=== PATIENT | female | born 1975 | race Caucasian/White ===

== ENCOUNTER 2017-09-17 11:17 | Emergency (ER) | payer BC ==
[2017-09-17] MEDS ORDERED: Ketorolac INJ* 60 MG/2 ML VIAL IM ONE (12:55)
--- NOTE | 2017-09-17 12:55 | ED ---
Upper Extremity Pain - HPI Summary HPI Summary: Rt hand dominant pt here w/ chronic Rt side neck/shoulder pain x 3 weeks consistently. Has had issues here intermittently over the years but worse past 3 weeks. Associated sx are pain radiating into arm (feels like tightness) and numbness/weakness sensation. Just woke up with these sx one morning 3 weeks ago and no relief despite chiropractic appointment, aleve, tylenol, heat, ice and topical rub. Has some relief when she moves her head laterally to the left sometimes. 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 No previous sx like this and denies h/o trauma. Having difficulty sleeping and working with sx. - History of Current Complaint Chief Complaint: UCUpperExtremity Stated Complaint: NECK PAIN ARM NUMB Time Seen by Provider: 09/17/17 12:30 Hx Obtained From: Patient Hx Last Menstrual Period: 08/31/17 - Allergies/Home Medications Allergies/Adverse Reactions: Allergies Allergy/AdvReac Type Severity Reaction Status Date / Time Erythromycin Allergy Severe Vomiting Verified 09/17/17 12:08 Hydromorphone [From Dilaudid] Allergy Unknown See Comment Verified 09/17/17 12: 08 PMH/Surg Hx/FS Hx/Imm Hx Previously Healthy: Yes Endocrine/Hematology History: Reports: Autoimmune Disease - psoriasis - better w / prednisone, but rebound worse after Denies: Hx Anticoagulant Therapy, Hx Blood Disorders, Hx Diabetes, Hx Thyroid Disease Cardiovascular History: Denies: Hx Hypertension Respiratory History: Denies: Hx Asthma, Hx Chronic Obstructive Pulmonary Disease (COPD) GI History: Denies: Hx Ulcer - Surgical History Surgery Procedure, Year, and Place: CHOLECYSTECTOMY 2011, SINUS SURGERY Infectious Disease History: No Infectious Disease History: Denies: Hx Clostridium Difficile, Hx Hepatitis, Hx Human Immunodeficiency Virus (HIV), Hx of Known/Suspected MRSA, Hx Shingles, Hx Tuberculosis, Hx Known/ Suspected VRE, Hx Known/Suspected VRSA, History Other Infectious Disease, Traveled Outside the [place] in Last 30 Days - Family History Known Family History: Positive: None - Social History Occupation: Employed Full-time - nutrition professor Lives: With Family Alcohol Use: None Hx Substance Use: No Substance Use Type: Reports: None Hx Tobacco Use: No Smoking Status (MU): Never Smoked Tobacco Have You Smoked in the Last Year: No Review of Systems Constitutional: Negative Negative: Fever, Chills, Fatigue Eyes: Negative Negative: Photophobia, Blurred Vision, Diplopia ENT: Negative Negative: Sore Throat, Ear Ache, Nasal Discharge Cardiovascular: Negative Negative: Palpitations, Chest Pain Respiratory: Negative Negative: Shortness Of Breath, Cough Gastrointestinal: Negative Negative: Abdominal Pain, Vomiting, Diarrhea, Nausea Positive: no symptoms reported Positive: Arthralgia, Myalgia, Decreased ROM Skin: Negative Neurological: Negative Positive: Weakness, Paresthesia Psychological: Normal All Other Systems Reviewed And Are Negative: Yes Physical Exam Triage Information Reviewed: Yes Vital Signs On Initial Exam: Initial Vitals Temp Pulse Resp BP Pulse Ox 98.2 F 57 16 169/87 100 09/17/17 12:03 09/17/17 12:03 09/17/17 12:03 09/17/17 12:03 09/17/17 12:03 Vital Signs Reviewed: Yes Appearance: Positive: Well-Appearing, No Pain Distress - at rest, sitting in chair, Obese Skin: Positive: Warm, Dry - no erythema, no ecchymosis, no lesions over affected area Head/Face: Positive: Normal Head/Face Inspection Eyes: Positive: Normal, EOMI ENT: Positive: Hearing grossly normal, Pharynx normal - mucosa moist Neck: Positive: Supple, Tenderness @ - Rt paracervical mm and C5,6 spinous pp Respiratory/Lung Sounds: Positive: Clear to Auscultation, Breath Sounds Present. Negative: Rales, Rhonchi, Stridor, Tracheal Deviation, Wheezes Cardiovascular: Positive: Normal, RRR, Pulses are Symmetrical in both Upper and Lower Extremities - no UE edema, S1, S2 Bowel Sounds: Positive: Present Musculoskeletal: Positive: Strength/ROM Intact - strength equal B/L in UE's, Pain @ - Rt trapezius and Rt supraspinatous TTP - no other rotator cuff mm are TTP; pain in all ranges of motion including flexion/abduction/internal and external rotation; equivocal empty can; no weakness or numbness appreciated upon exam Neurological: Positive: Normal, Sensory/Motor Intact, Alert, Oriented to Person Place, Time, CN Intact II-III Psychiatric: Positive: Normal - concerned but calm and cooperative Diagnostics - Vital Signs Vital Signs Temp Pulse Resp BP Pulse Ox 09/17/17 12:03 98.2 F 57 16 169/87 100 - Laboratory Lab Statement: Any lab studies that have been ordered have been reviewed, and results considered in the medical decision making process. Course/Dx - Course Course Of Treatment: Pt presents w/ 3 weeks of Rt cervical pain/shoulder pain w / radiculopathy sx of numbness and weakness into Rt arm. Exam is unremarkable today for emergent neuro deficit. XR's ordered to assess anatomy - report reveals: DDD at lower cervical spine (correlates w/ sx) and moderate OA of Rt shoulder. Pain could be arthritis flair up and/or tendonitis from overuse. Out of work for a few days and f/u w/ PCP if more time if needed. She was offered prednisone for inflammation however reports this makes her psoriasi worse upon completing so will refrain today. Referred to PT and strongly encouraged to f/u w/ PCP in the event she does not improve - may need MRI. Pt agrees w/ plan. If sx worsen or she starts dropping items, etc will go to ED. - Diagnoses Provider Diagnoses: Right cervical radiculopathy, Right shoulder pain Discharge - Discharge Plan Condition: Stable Disposition: HOME Prescriptions: Cyclobenzaprine TAB* [Flexeril 10 MG TAB*] 10 mg PO TID PRN #15 tab PRN Reason: Pain Ibuprofen TAB* [Motrin TAB* 600 MG] 600 mg PO Q6H PRN #20 tab PRN Reason: Pain Patient Education Materials: Cervical Radiculopathy (ED), Shoulder Pain (ED), Osteoarthritis (ED), Degenerative Disc Disease (ED) Forms: *Work Release Referrals: Ab GONZALEZ,Annalise Haywood [Primary Care Provider] - Additional Instructions: It is advised that you rest your shoulder from work - start Physical Therapy - call today to schedule appointment. Continue anti-inflammatories - ibuprofen 600mg every 6 hours with food. May also use flexeril 10mg at bedtime for aid with sleeping. Heat then gentle stretches alternating with ice. Follow-up with PCP as well this week to schedule appointment after PT. If symptoms persist, may benefit from MRI. *If you develop true weakness (ie. dropping items, etc) go to ED
--- NOTE | 2017-09-17 13:22 | RAD ---
HISTORY: Right shoulder pain COMPARISONS: None VIEWS: 4, Frontal internal rotation, external rotation, outlet, and axillary views of the right shoulder FINDINGS: BONE DENSITY: Normal. BONES: There is no displaced fracture. JOINTS: There is moderate osteoarthritis of the right AC joint ALIGNMENT: There is no dislocation. SOFT TISSUES: Unremarkable. OTHER FINDINGS: None. IMPRESSION: OSTEOARTHRITIS. NO ACUTE OSSEOUS INJURY. IF SYMPTOMS PERSIST, RECOMMEND REPEAT IMAGING.
--- NOTE | 2017-09-17 13:22 | RAD ---
INDICATION: Right-sided neck pain. COMPARISON: None. TECHNIQUE: 4 views of the cervical spine were obtained. FINDINGS: On the lateral view image there is mild reversal of the normal cervical lordosis. The vertebral bodies and facet joints are otherwise appropriately aligned. There is no widening of the atlantodental interval. Mild degenerative changes include loss of intervertebral disc height at the lower cervical spine. IMPRESSION: Mild reversal of the normal cervical lordosis, a nonspecific finding that can be seen simply due to positioning or related to muscle spasm. If the patient's symptoms persist, follow-up imaging is recommended.
[2017-09-17 13:31] VITALS: BP 164/89
== END 2017-09-17 13:46 | disposition home or self-care (01) ==
LOC: UCEAST 11:17
DX: M54.12 Radiculopathy, cervical region (principal); M25.511 Pain in right shoulder; L40.9 Psoriasis, unspecified; Z88.3 Allergy status to other anti-infective agents; Z88.5 Allergy status to narcotic agent
CPT/HCPCS: 72040; 99212; G0463; J1885

== ENCOUNTER 2018-01-17 10:45 | Inpatient (IN) | payer BC ==
[~2018-01-17 10:45] MED LIST: Buffered Lidocaine 0.9% SYRIN* 5 ML/SYR SYRINGE INTRADERM ONE; Famotidine TAB* 20 MG PO ONE; Sodium Citrate/Citric Acid* 15 ML UDC PO ONE
[2018-01-17] MEDS ORDERED: Sodium Citrate/Citric Acid* 15 ML UDC ONE (11:20)
[2018-01-17] MEDS ORDERED: ceFAZolin 2 GM PREMIX (*) 2 GM/50 ML BAG IVPB ONE (11:20)
[2018-01-17] MEDS ORDERED: Famotidine TAB* 20 MG ONE (11:20)
[2018-01-17] MEDS ORDERED: Lidocaine 1% MPF wEPI 200,000* 30 ML SDV ONE (13:15)
[2018-01-17] MEDS ORDERED: Bacitracin IV* 50,000 UNITS INJ ONE (13:15)
[2018-01-17] MEDS ORDERED: Thrombin 5,000 UNITS* 1 APPLIC KIT - topical use - TOPICAL ONE (13:15)
[2018-01-17] MEDS ORDERED: fentaNYL* 50 MCG/ML 2 ML VIAL (100 MCG VIAL) ONE ×2 (14:35→16:05)
[2018-01-17] MEDS ORDERED: Scopolamine 1.5 mg* PATCH ONE (14:36)
[2018-01-17] MEDS ORDERED: Propofol* 10 MG/ML 20 ML BTL IV PUSH ONE (14:39)
[2018-01-17] MEDS ORDERED: Succinylcholine* 20 MG/ML 10 ML VIAL ONE (14:39)
[2018-01-17] MEDS ORDERED: Rocuronium* 10 MG/ML VIAL ONE (15:09)
[2018-01-17] MEDS ORDERED: EPHEDrine (Pressors)* 50 MG/ML VIAL ONE (15:52)
[2018-01-17] MEDS ORDERED: Dexamethasone IV* 4 MG/ML 1 ML (4 MG) ONE (15:52)
[2018-01-17] MEDS ORDERED: DiMENhydriNATE IV* 50 MG/ML VIAL IV PUSH PRN (16:03)
[2018-01-17] MEDS ORDERED: Ketorolac INJ* 30 MG/ML 1 ML VIAL IV PRN (16:03)
[2018-01-17] MEDS ORDERED: oxyCODONE TAB* 5 MG TAB PO PRN (16:03)
[2018-01-17] MEDS ORDERED: Naloxone* 0.4 MG/ML 1 ML VIAL IV PRN (16:03)
[2018-01-17] MEDS ORDERED: Magnesium Hydroxide LIQ* 30 ML UDC PO PRN (17:33)
[2018-01-17] MEDS ORDERED: Acetaminophen TAB* 325 MG PO PRN (17:33)
[2018-01-17] MEDS ORDERED: DiMENhydriNATE IV* 50 MG/ML VIAL ONE (17:47)
[2018-01-17] MEDS ORDERED: Ketorolac INJ* 30 MG/ML 1 ML VIAL ONE (18:04)
[2018-01-17] MEDS ORDERED: fentaNYL* 50 MCG/ML 5 ML VIAL (250 MCG VIAL) ONE (18:04)
[2018-01-17] MEDS: fentaNYL* 50 MCG/ML 2 ML VIAL (100 MCG VIAL) IV PRN ×5 (18:07→19:23)
--- NOTE | 2018-01-17 18:37 | RAD ---
INDICATION: Anterior cervical disc hysterectomy and fusion with instrumentation. COMPARISON: Correlation is made with a prior MRI of the cervical spine from December 25, 2017. TECHNIQUE: 18.7 seconds of intermittent fluoroscopic guidance were provided and 8 spot films of the cervical spine were obtained in the operating room. FINDINGS: The films demonstrate successive anterior spinal fusion present at the C4-C5 level. There is a surgical plate anterior to the vertebral bodies transfixed with 2 screws at each level. There is also a disc prosthesis at that level. IMPRESSION: INTRAOPERATIVE CONTROL FILMS. CPT II Codes: G9500
[2018-01-17] MEDS ORDERED: PROCHLORPERAZINE INJ 5 MG/ML 2 ML VIAL IV PRN (18:38)
[2018-01-17] MEDS: HYDROcodone/ACETAMIN 5-325 MG* 1 TAB PO PRN (21:10)
[2018-01-17] MEDS: Atenolol TAB* 50 MG PO SCH (21:10)
[2018-01-17] MEDS: Citalopram TAB* 40 MG PO SCH (21:10)
--- NOTE | 2018-01-17 21:41 | CONSULT ---
Consult Consult: INPATIENT PAIN CONSULTATION Audrey Hoang is a 42 yo. She develloped neck pain radiating into her right shoulder in June. She went to her chiropractor but the symptoms persisted. She was taking NSAIDs without relief. She went to [facility] in August and had x- rays of her right shoulder and cervical spine. She went to physical therapy and this did not help her. She tried deep tissue massage but this was not helpful. She says that when she tried to reach for something with her right hand, the hand and arm would sometimes go numb. She thought the problem was with her shoulder, so she saw Dr. Calabrese, the orthopedic surgeon. Dr. Calabrese ordered an MRI of the cervical spine. It showed a disc protusion at C4/5 to the right displacing the ventral nerve root and mass effect on the thecal sac with neural foraminal stenosis. She was referred to Dr. Liu. He recommended an C4/5 ACDF. She was admitted to [facility] today and had the surgical procedure. She was started on [place]. I am asked to assist in pain management. PAST MEDICAL HISTORY: Migraines, anxiety ALLERGIES: erythromycin, dilaudid Current Medications Acetaminophen (Tylenol Tab*) 650 mg PO Q4H PRN PRN Reason: PAIN Hydrocodone Bitart/Acetaminophen ([place] 5-325 Tab*) 2 tab PO Q4H PRN PRN Reason: marked pain Last Admin: 01/17/18 21:10 Dose: 2 tab Atenolol (Tenormin Tab*) 50 mg PO BEDTIME [facility] Last Admin: 01/17/18 21:10 Dose: 50 mg Citalopram Hydrobromide (Celexa Tab*) 40 mg PO BEDTIME [facility] Last Admin: 01/17/18 21:10 Dose: 40 mg Lactated Ringer's (Lactated Ringers 1000 Ml Bag*) 1,000 mls @ 75 mls/hr IV .per rate [facility] Last Admin: 01/17/18 21:12 Dose: 75 mls/hr Magnesium Hydroxide (Milk Of Magnesia Liq*) 30 ml PO DAILY PRN PRN Reason: CONSTIPATION Oxycodone HCl (Roxycodone Tab*) 10 mg PO ONCE PRN PRN Reason: SEVERE PAIN Stop: 01/18/18 16:02 Prochlorperazine Edisylate (Compazine Inj*) 5 mg IV Q6H PRN PRN Reason: NAUSEA/VOMITING Last Admin: 01/17/18 21:20 Dose: 5 mg SOCIAL HISTORY: non-smoker, rare drinker. She lives with her son in a 2 story house. 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 Vital Signs Temp Pulse Resp BP Pulse Ox 98.2 F 92 16 136/73 96 01/17/18 19:00 01/17/18 20:01 01/17/18 21:10 01/17/18 20:01 01/17/18 20:01 EXAM: HEENT: EOMI NECK: Immobilized in hard collar EXTREMITIES: Normal tone. Peripheral pulses intact NEUROLOGIC: alert and oriented. Handgrip 5/5 and symmetric. ASSESSMENT: 1. Cervical Radiculopathy, S/P ACDF with interbody cage PLAN: She has [place] written for and oxycodone in case the [place] doesn't work. This seems to be sufficient at present. I have taken the liberty of writing for bowel meds. She can go home with [place] if there are no problems. Please call with questions.
[2018-01-17] MEDS ORDERED: HYDROcodone/ACETAMIN 5-325 MG* 1 TAB PO PRN (22:00)
[2018-01-17] MEDS ORDERED: Senna TAB PO PRN (22:00)
[2018-01-18] MEDS: HYDROcodone/ACETAMIN 5-325 MG* 1 TAB PO PRN ×5 (04:03→22:01)
--- NOTE | 2018-01-18 08:00 | PN ---
Progress Note - Progress Note Date of Service: 01/18/18 SOAP: Subjective: [S/p ACD F C4-5, POD #1. She is feeling well but tired this morning. [place] J collar placed and is better fitting. Pre-op symptoms improving. Pain well controlled with PO pain medications Denies nausea, reports mild headache. ] Objective: [ Vital Signs: Temp Pulse Resp BP Pulse Ox 97.3 F 60 17 131/71 98 01/18/18 03:58 01/18/18 03:58 01/18/18 06:44 01/18/18 03:58 01/18/18 06:09 General: Alert and sitting up in bed. Neuro: Motor and sensory intact. Incision: Intact and dressing is clean/dry. Neck: No swelling or erythema. ] Assessment: [Satisfactory post-op course.] Plan: [1. Discharge home today. 2. Discharge instructions discussed with the patient.]
[2018-01-18] MEDS: Docusate CAP* 100 MG PO SCH ×2 (08:41→21:25)
--- NOTE | 2018-01-18 11:00 | RAD ---
HISTORY: Postop ACDF COMPARISONS: MRI dated December 25, 2017 VIEWS: 2, frontal and lateral views of the cervical spine FINDINGS: The cervical spine is visualized from the skull base through C7. ALIGNMENT: There is straightening of the normal cervical lordosis. VERTEBRAL BODIES: The patient is status post anterior cervical fusion at C4-C5. There is no hardware failure or osteolysis. JOINTS: There is no subluxation or dislocation. The facet joints are unremarkable. INTERVERTEBRAL DISCS: Intervertebral graft material is noted at C4-C5. SOFT TISSUE: The prevertebral soft tissues are normal. OTHER: The skull base is normal. The lung apices are clear. IMPRESSION: STATUS POST ANTERIOR CERVICAL FUSION AT C4-C5
[2018-01-18] MEDS ORDERED: Benzocaine/Menthol LOZ* 1 LOZENGE PO PRN (15:20)
--- NOTE | 2018-01-18 20:57 | CONS ---
[facility] MEDICINE CONSULTATION REPORT: DATE OF CONSULT: 01/18/18 ATTENDING PHYSICIAN: Dr. Liu. CONSULTING PHYSICIAN: Dr. Sarah Aguilar (dictated by Radha Alexander NP). REASON FOR CONSULT: Hypoxia. HISTORY OF PRESENT ILLNESS: Ms. Hoang is a 42-year-old female with past medical history significant for migraines, psoriasis, anxiety, depression, and neck pain, who presented to the hospital for an elective C4-C5 cervical diskectomy and fusion with PEEK interbody cage with Dr. Liu. She had her surgery on 01/17/18 and was doing well postoperatively. She did have oxygen desaturations in the PACU and was placed on oxygen postoperatively. Post recovery, she was placed on short stay surgical. She continues to have some desaturation of oxygen with sleeping and with ambulation. She denies any chest pain or shortness of breath. She denies any palpitations. She denies any cough or congestion. She denies any history of asthma. She does report she does snore when sleeping. She denies any recent illnesses or sick contacts. Due to the hypoxia, we were asked to consult in her care. PAST MEDICAL HISTORY: 1. Migraines. 2. Psoriasis. 3. Anxiety. 4. Depression. 5. Neck pain. PAST SURGICAL HISTORY: 1. Sinus surgery. 2. Gallbladder surgery. MEDICATIONS: As outpatient: 1. Citalopram 20 mg p.o. daily. 2. Atenolol 25 mg p.o. daily for migraines. 3. Ibuprofen 800 mg t.i.d. as needed for pain. ALLERGIES TO MEDICATIONS: She is allergic to ERYTHROMYCIN and HYDROMORPHONE. HYDROMORPHONE causes her to become "crazy" per the patient. FAMILY HISTORY: No history of coronary artery disease or diabetes within the family. Cancer: Sister with lung cancer and grandfather with unknown type of cancer. SOCIAL HISTORY: The patient denies tobacco, alcohol, or illicit drug use. She does report that in the event she is unable to make her own medical decisions that her mother and father are surrogate decision makers. Her mother's name is Marilyn. Her phone number is [phone], area code 315. REVIEW OF SYSTEMS: General: No fevers, chills, or unintended weight loss. Cardiac: No chest pain or edema. Respiratory: Denies any cough or congestion. Denies any shortness of breath. GI: Reports mild nausea at this time. Denies abdominal pain or diarrhea. : Denies any gross hematuria or dysuria. Neuro: Denies any focal weakness or sensory loss. Eyes: No visual complaints. ENT: No dysphagia. She does report a sore throat. Musculoskeletal: No arthralgias or myalgias. Skin: No rashes or lesions. She does report that she has a headache and some mild dizziness. PHYSICAL EXAM: Vital Signs: Temperature 98.8, pulse of 71, respirations 16, O2 saturation 93% on room air, blood pressure 139/73. LABORATORY DATA: She had a CBC on 01/10/18, WBCs were 9.1, RBCs 4.29, hemoglobin 9.1, hematocrit was 38, platelet count was 316. INR on 01/10/18 was 0.91. BMP on 01/10/18, sodium 138, potassium 4.2, chloride 102, carbon dioxide was 30, anion gap of 6, creatinine was 0.65, BUN was 15. ASTs were 16, ALTs were 20. TSH was 2.60. IMPRESSION AND PLAN: Ms. Hoang is a 42-year-old female with a past medical history significant for migraines, psoriasis, anxiety, depression, and neck pain , who presented to [facility] on 01/17/18 for elective C4-5 anterior cervical diskectomy and fusion. During the postoperative period, she has had periods of desaturation, so we were asked to consult regarding this matter. Our recommendations are as follows: 1. Status post cervical diskectomy and fusion. Management per Neurosurgery. 2. Oxygen desaturation. I suspect this is related to sleep apnea and body habitus. We will order a nocturnal oxygen desaturation monitoring to see if she qualifies for home O2. I will order a CBC and a CMP. In the event, she has desaturations below 88%, she should be placed on oxygen. If this nocturnal desaturation monitoring is positive for desaturation, I would recommend outpatient sleep study for further evaluation of sleep apnea. 3. As far as her migraines, she should continue her Tylenol 25 mg p.o. daily. 4. For her depression and anxiety, she should continue her citalopram. 5. DVT prophylaxis. As per Neurosurgery. 6. Code status. She is a full code. TIME SPENT: Time spent on this consultation was approximately 45 minutes, greater than half of that time was spent with the patient at the bedside reviewing events leading thus far to her hospitalization, performing physical exam, and reviewing my plan of care. I have discussed with my attending, Dr. Sarah Aguilar, and she is in agreement with my plan. RADHA ALEXANDER, LAB HEAD [id number]/[facility] #: [id number] JUNE
[2018-01-18] MEDS: Citalopram TAB* 40 MG PO SCH (21:25)
[2018-01-18] MEDS: Atenolol TAB* 50 MG PO SCH (21:25)
--- NOTE | 2018-01-18 22:46 | OP ---
OPERATIVE REPORT: DATE OF SURGERY: 01/17/18 - Inpatient, room SSU 342-02 DATE OF : 73 SURGEON: Meche Liu MD PROTECTION ANALYST: DAMIR Blackwell The procedure was done with assistance of surgical PA because of the complexity of the case. ANESTHESIOLOGIST: Damián Constantino MD ANESTHESIA: General. PRE-OP DIAGNOSES: Degenerative disk disease with right herniated nucleus pulposus at C4-5. POST-OP DIAGNOSES: Degenerative disk disease with right herniated nucleus pulposus at C4-5. OPERATIVE PROCEDURE: The patient underwent anterior cervical diskectomy and fusion at C4-5 with PEEK interbody cage, and DBM putty and autologous bone graft and plate. ESTIMATED BLOOD LOSS: 30 cc. COMPLICATIONS: None. SUMMARY: The patient is a very pleasant 42-year-old female with complaints of neck pain radiating to the right upper extremity. MRI revealed a large right C4 -5 disk herniation. After failing conservative treatment modalities, the patient was offered the option of anterior cervical diskectomy and fusion at C4- 5. After explaining expectations, limitations, and possible complications of the procedure with the patient and her family with complications including, but not limited to bleeding, infection, risk of damage to adjacent structures, paralysis, , need for additional procedures, anesthesia risk, stroke, blindness, cancer, instability and hardware of failure, adjacent level disease, pseudoarthrosis, recurrent laryngeal nerve palsy, need for tracheostomy or gastrostomy, anesthesia risks. The patient was agreeable to proceed with surgery. Informed consent was obtained. The patient understood that his condition may not improve and in fact may get worse after the surgery and he may need an additional procedure in the future. She also understood that operative plan may be modified according to intraoperative findings and conditions. DESCRIPTION OF PROCEDURE: The patient was brought to the operating room and was placed under general anesthesia by the anesthesia team. She was carefully positioned supine and all bony prominences were meticulously padded. The head was secured on the gel donut head rest. Her skin was prepped and draped in the standard fashion and after appropriate surgical pause and patient identification , a small paramedian incision at the level of C4-5 was marked on the skin and the area was infiltrated with local anesthetic. An appropriate level was confirmed with the assistance of intraoperative fluoroscopic imaging. A #10 surgical blade was used to incise the skin after infiltrating the skin with local anesthetic. The platysma was then divided with sharp dissection and self- retaining retractors were introduced into the field after undermining the platysma. The plane between the medial border of the sternocleidomastoid and the medial structures were gently developed with sharp and blunt dissection. The paravertebral fascia was gently divided and the anterior part of the spine was visualized. Appropriate surgical level was identified with the use of intraoperative fluoroscopic imaging and a second surgical pause was then performed. Self-retaining retractors were introduced into the field as well as the Luck pins at the C4 and C5 vertebral bodies. A standard diskectomy at C4- 5 was performed after incising the annulus fibrosus with #15 surgical blade. The diskectomy was performed with the use of pituitary rongeurs, Kerrison punches, and curettes. Locally harvested bone graft part of the operation was saved for use in the part of the procedure. Then, microscope was brought into the field and the diskectomy was completed under microscopic magnification. A large disk fragment was found to be adherent to the posterior level of the ligament into the right side of the sacral side extending towards the foramen. This was then removed with pituitary rongeur. The posterior ligament was then divided with #1 Kerrison punches and at the end of procedure, copious irrigation was performed and confirmation of meticulous hemostasis. The dura was found to pulsate nicely, free of any pressure phenomenon. An 8 mm PEEK interbody cage Medtronic was inserted after being filled with locally harvested bone graft and DBM putty. A Medtronic anterior cervical plate was then placed and secured with 4 titanium screws. The self- retaining retractors were gently removed and intraoperative fluoroscopic imaging confirmed excellent placement of whole hardware. The wound was copiously irrigated. After confirmation of meticulous hemostasis, the wound was closed by layers with 2-0 interrupted sutures to approximate the platysma and 2-0 interrupted Vicryl sutures to approximate the subcutaneous tissue. The skin was covered with Dermabond and sterile sponges. At the end of the procedure, all counts were reported to be correct. The patient remained hemodynamically stable throughout the case. He was then extubated and was transferred to Recovery in excellent condition. The case was done with assistance of the surgical PA because of the complexity of the case. [id number]/[facility] #: [id number] JUNE
[2018-01-19 05:27] LABS: Hematocrit 34 % (35-47); Hemoglobin 11.4 g/dl (12.0-16.0); Mean Corpuscular HGB Conc 34 g/dl (31-36); Mean Corpuscular Hemoglobin 30 pg (27-31); Mean Corpuscular Volume 91 fL (80-97); Mean Platelet Volume 7.7 um3 (7.4-10.4); Platelet Count 279 10^3/ul (150-450); Red Blood Count 3.76 10^6/ul (4.0-5.4); Red Cell Distribution Width 15 % (10.5-15); White Blood Count 10.4 10^3/ul (3.5-10.8)
[2018-01-19] MEDS: HYDROcodone/ACETAMIN 5-325 MG* 1 TAB PO PRN ×2 (05:29→11:52)
[2018-01-19 05:36] LABS: ABS Basophils 0.1 10^3/ul (0-0.2); ABS Eosinophils 0.2 10^3/ul (0-0.6); ABS Lymphocytes 3.4 10^3/ul (1.0-4.8); ABS Monocytes 0.7 10^3/ul (0-0.8); ABS Neutrophils 6.3 10^3/ul (1.5-7.7); ABS Nucleated RBC 0 10^3/ul; Eosinophil % 1.5 % (0-6); Lymphocyte % 31.8 % (25-47); Nucleated Red Blood Cells % 0.1
[2018-01-19 05:45] LABS: EGFR Non-African American 94.4 (>60)
[2018-01-19 07:50] VITALS: BP 128/75
[2018-01-19] MEDS: Docusate CAP* 100 MG PO SCH (10:03)
--- NOTE | 2018-01-19 10:25 | PN ---
Progress Note - Progress Note Date of Service: 01/19/18 SOAP: Subjective: [S/p ACD F C4-5, POD #1. Feeling tired, complains of incisional pain and posterior neck soreness. Eating and drinking without difficulty. [place] J collar in place. Overnight oxygen saturation study performed last night. Denies headache, nausea and fever.] Objective: [ Vital Signs: Temp Pulse Resp BP Pulse Ox 98.0 F 46 20 128/75 99 01/19/18 07:35 01/19/18 07:35 01/19/18 10:04 01/19/18 07:35 01/19/18 07:35 General: Alert and sitting up in chair. Neuro: Motor and sensory intact. Incision: Intact and dressing clean/dry. Tenderness of incisional area. No swelling, erythema or drainage. Extremities: Full ROM.] Assessment: [Post op ACD F C4-5. Satisfactory post-op course. Episodes of O2 desaturation while sleeping. Hospitalist consulted and overnight O2 saturation study performed. Per hospital medicine, she will require home oxygen while sleeping and will be discharged home with this from [facility]. ] Plan: [1. Discharge home today once O2 requirements are arranged. 2. Discharge instructions discussed with the patient again this morning. 3. Also discussed with patient she will need to be referred to Pulmonology by PCP, Dr. Garsia, for outpt evaluation.]
--- NOTE | 2018-01-19 11:33 | PN ---
Subjective Date of Service: 01/19/18 Interval History: Patient seen and examined at bedside. Denies fever, chills, shortness of breath , chest discomfort, N/V/D. Pt states that her pain is well controlled. She reports snoring at home". Family History: Unchanged from Admission Social History: Unchanged from Admission Past Medical History: Unchanged from Admission Objective Active Medications: Acetaminophen (Tylenol Tab*) 650 mg PO Q4H PRN Reason: PAIN Hydrocodone Bitart/Acetaminophen (Citronelle 5-325 Tab*) 2 tab PO Q4H PRN Reason: marked pain Hydrocodone Bitart/Acetaminophen (Citronelle 5-325 Tab*) 1 tab PO Q4H PRN Reason: PAIN - MODERATE TO SEVERE Atenolol (Tenormin Tab*) 50 mg PO BEDTIME ALONZO Citalopram Hydrobromide (Celexa Tab*) 40 mg PO BEDTIME ALONZO Docusate Sodium (Colace Cap*) 100 mg PO BID ALONZO Lactated Ringer's (Lactated Ringers 1000 Ml Bag*) 1,000 mls @ 75 mls/hr IV .per rate ALONZO Lactated Ringer's (Lactated Ringers 1000 Ml Bag*) 500 mls @ 500 mls/hr IV .BOLUS ALONZO Magnesium Hydroxide (Milk Of Magnesia Liq*) 30 ml PO DAILY PRN Reason: CONSTIPATION Prochlorperazine Edisylate (Compazine Inj*) 5 mg IV Q6H PRN Reason: NAUSEA/ VOMITING Senna (Senokot Tab*) 2 tab PO BEDTIME PRN Reason: CONSTIPATION Throat Lozenges (Chloraseptic Zoila*) 1 zoila PO Q6H PRN Reason: SORE THROAT Vital Signs - 8 hr 01/19/18 01/19/18 01/19/18 04:00 04:04 05:29 Temperature 97.8 F Pulse Rate 49 Respiratory 16 16 16 Rate Blood Pressure 121/79 (mmHg) O2 Sat by Pulse 93 94 Oximetry 01/19/18 01/19/18 01/19/18 06:00 06:46 07:35 Temperature 98.0 F Pulse Rate 46 Respiratory 16 18 Rate Blood Pressure 128/75 (mmHg) O2 Sat by Pulse 96 92 99 Oximetry 01/19/18 10:04 Temperature Pulse Rate Respiratory 20 Rate Blood Pressure (mmHg) O2 Sat by Pulse Oximetry Oxygen Devices in Use Now: None Appearance: NAD, sitting up in a chair Ears/Nose/Mouth/Throat: Mucous Membranes Moist Respiratory: Symmetrical Chest Expansion and Respiratory Effort, Clear to Auscultation Cardiovascular: NL Sounds; No Murmurs; No JVD, RRR Abdominal: NL Sounds; No Tenderness; No Distention Extremities: No Edema Skin: No Rash or Ulcers Neurological: Alert and Oriented x 3, NL Muscle Strength and Tone Lines/Tubes/Other Access: Clean, Dry and Intact Peripheral IV - site benign Nutrition: Taking PO's Result Diagrams: 01/19/18 05:14 01/19/18 05:14 Assess/Plan/Problems-Billing Assessment: Ms. Hoang is a 42 yo female with PMH significant for migraines, psoriasis, anxiety, depression and neck pain who presented to the hospital on 01/17 for a celcetive C4-[address] Fernandez. - Patient Problems (1) Status post cervical discectomy Code(s): Z98.890 - OTHER SPECIFIED POSTPROCEDURAL STATES SNOMED Code(s): 879628600 Comment: - Management per Neurosurgery (2) Hypoxia Code(s): R09.02 - HYPOXEMIA SNOMED Code(s): 623032254 Comment: - Suspect secondary to undiagnosed sleep apnea - Overnight O2 monitoring shows desaturation for ~ 37 minutes - Plan for outpatient sleep study - Will order nocturnal O2 2L for home (3) Migraines Code(s): G43.909 - MIGRAINE, UNSP, NOT INTRACTABLE, WITHOUT STATUS MIGRAINOSUS SNOMED Code(s): 32932576 Comment: - Continue Atenolol (4) Anxiety and depression Code(s): F41.9 - ANXIETY DISORDER, UNSPECIFIED; F32.9 - MAJOR DEPRESSIVE DISORDER, SINGLE EPISODE, UNSPECIFIED SNOMED Code(s): 684827780 Comment: - Continue citalopram (5) DVT prophylaxis Code(s): SHY4168 - SNOMED Code(s): 325635833 (6) Full code status Code(s): Z78.9 - OTHER SPECIFIED HEALTH STATUS SNOMED Code(s): 590046737 Status and Disposition: Inpatient. Disposition per Neurosurgery. Thank you for this consultation.
== END 2018-01-19 12:00 | disposition home or self-care (01) | DRG 23 ==
LOC: AA 11:00 → SSU 17:33
PROVIDERS: ADMIT Neurological Surgery; ATTEND Neurological Surgery
PROC: 0RB30ZZ Excision of Cervical Vertebral Disc, Open Approach (ICD-10-PCS; 2018-01-17)
PROC: 0RG10AJ Fusion of Cervical Vertebral Joint with Interbody Fusion Device, Posterior Approach, Anterior Column, Open Approach (ICD-10-PCS; principal; 2018-01-17 10:45)
DX: M50.121 Cervical disc disorder at C4-C5 level with radiculopathy (principal); Z68.42 Body mass index [BMI] 45.0-49.9, adult; M50.321 Other cervical disc degeneration at C4-C5 level; G43.909 Migraine, unspecified, not intractable, without status migrainosus; F41.9 Anxiety disorder, unspecified; R09.02 Hypoxemia; L40.9 Psoriasis, unspecified; F32.9 Major depressive disorder, single episode, unspecified; G47.30 Sleep apnea, unspecified; E66.9 Obesity, unspecified; Z88.1 Allergy status to other antibiotic agents; Z88.8 Allergy status to other drugs, medicaments and biological substances; Z80.1 Family history of malignant neoplasm of trachea, bronchus and lung; Z79.1 Long term (current) use of non-steroidal anti-inflammatories (NSAID); Z79.899 Other long term (current) drug therapy
CPT/HCPCS: 36415; 72040; 76001; 80048; 81025; 85025; 94762; A9270-GY; C1713; C1776; C9359; J0330; J0690; J0780; J1100; J1240; J1885; J2001; J2704; J3010

== ENCOUNTER 2018-01-20 18:17 | Inpatient (IN) | payer BC ==
[2018-01-20] MEDS ORDERED: diPHENhydraMINE IV* 50 MG/ML 1 ml VIAL (BENADRYL) IV ONE (20:04)
[2018-01-20] MEDS ORDERED: methylPREDNISolone 125 MG* 2 ML VIAL IV ONE (20:04)
[2018-01-20] MEDS ORDERED: Famotidine IV* 10 MG/ML 2 ML (20 mg) IV SLOW PU ONE (20:05)
[2018-01-20 20:38] LABS: ABS Basophils 0 10^3/ul (0-0.2); ABS Eosinophils 0.1 10^3/ul (0-0.6); ABS Lymphocytes 2.3 10^3/ul (1.0-4.8); ABS Monocytes 0.6 10^3/ul (0-0.8); ABS Neutrophils 7.3 10^3/ul (1.5-7.7); ABS Nucleated RBC 0 10^3/ul; Eosinophil % 1.2 % (0-6); Hematocrit 36 % (35-47); Hemoglobin 12.1 g/dl (12.0-16.0); Lymphocyte % 22.6 % (25-47); Mean Corpuscular HGB Conc 34 g/dl (31-36); Mean Corpuscular Hemoglobin 30 pg (27-31); Mean Corpuscular Volume 89 fL (80-97); Mean Platelet Volume 7.7 um3 (7.4-10.4); Nucleated Red Blood Cells % 0; Platelet Count 305 10^3/ul (150-450); Red Blood Count 3.99 10^6/ul (4.0-5.4); Red Cell Distribution Width 14 % (10.5-15); White Blood Count 10.4 10^3/ul (3.5-10.8)
[2018-01-20 20:48] LABS: EGFR Non-African American 94.4 (>60)
--- NOTE | 2018-01-20 20:51 | PN ---
Hospitalist Progress Note Date of Service: 01/20/18 Patient had an overnight sleep study on 01/19-01/20 with O2 sat < 89% for 00:37:52 , there is an issue with the software and unable to see on printout how long O2 sat was </= 88%. When looking at the graph Pt had ~ 5 minutes </= 88%. Pt should be on noctunal O2 @ 2L until she is able to have a formal sleep study to evaluate for sleep apnea. Pt has suspected obesity related hyperventilation syndrome, in addition to her nocturnal hypoxia.
[2018-01-20] MEDS ORDERED: Iohexol 300* (CONTRAST) 10 ML SDV IV ONE (21:17)
[2018-01-20 22:05] LABS: Urine Appearance Clear; Urine Blood Negative (Negative); Urine Color Straw; Urine Ketones Negative (Negative); Urine Protein Negative (Negative); Urine Specific Gravity 1.004 (1.010-1.030); Urine Urobilinogen Negative (Negative)
--- NOTE | 2018-01-20 22:32 | ED ---
Fantasma Howell Stephanie, scribed for Karen Jones MD on 01/20/18 at 1956 . Neck Pain - HPI Summary HPI Summary: The pt is a 42 y/o F presenting to the ED with c/o throat pain that began yesterday. The pt states she feels like she has a lump in her throat and as if she is going to choke all the time. The pt had anterior cervical discectomy and fusion surgery on 01/17/[address] Jin. Pt has been wearing a [place] J collar since the surgery. Pt was DC'd home yesterday, and did not have this dysphagia and choking sensation at the time of discharge. Pt did have documented desaturation of O2 into the 80's while in the hospital, but insurance did not allow nocturnal O2 for pt at time of discharge. Additional symptoms include pruritic rash on her abdomen and back that began today. The pt denies fever and cough. - History of Current Complaint Chief Complaint: EDThroatPain Stated Complaint: THROAT PAIN-THROAT SURG SUNDAY Time Seen by Provider: 01/20/18 18:33 Hx Obtained From: Patient Onset/Duration Of Injury/Symptoms: Days - 1 Mechanism Of Injury: Other - no injury, ACDF on 01/17/18 Timing: Constant Onset/Duration: Gradual Onset, Started days ago - 1, Still Present Severity Initially: Moderate Severity Currently: Severe Pain Intensity: 5 Pain Scale Used: 0-10 Numeric Location: Discrete At: - neck, throat Character: Other: - choking sensation Aggravating Factors: Other: - swallowing Alleviating Factors: Nothing Associated Signs & Symptoms: Negative: Swelling, Redness, Fever, Nuchal Rigity Related History: Other - ACDF surg 01/17/18 - Allergies/Home Medications Allergies/Adverse Reactions: Allergies Allergy/AdvReac Type Severity Reaction Status Date / Time erythromycin base Allergy Vomiting Verified 01/17/18 11:34 hydromorphone Allergy Unknown Verified 01/17/18 11:34 Reaction Details PMH/Surg Hx/FS Hx/Imm Hx Previously Healthy: No Endocrine/Hematology History: Reports: Other Endocrine/Hematological Disorders - morbid obesity Denies: Hx Anticoagulant Therapy, Hx Blood Disorders, Hx Diabetes, Hx Thyroid Disease Cardiovascular History: Denies: Hx Hypertension, Hx Pacemaker/ICD Respiratory History: Denies: Hx Asthma, Hx Chronic Obstructive Pulmonary Disease (COPD) GI History: Denies: Hx Ulcer Sensory History: Reports: Hx Contacts or Glasses - GLASSES Denies: Hx Hearing Aid Opthamlomology History: Reports: Hx Contacts or Glasses - GLASSES Neurological History: Reports: Hx Migraine - TAKES ATENOLOL FOR - STATES RARELY HAS NOW Psychiatric History: Reports: Hx Anxiety Denies: Hx Panic Disorder - Surgical History Surgery Procedure, Year, and Place: CHOLECYSTECTOMY 2011,. SINUS SURGERY. ACDF surg 01/17/18 Hx Anesthesia Reactions: Yes - HYDROMORPHONE Infectious Disease History: No Infectious Disease History: Denies: Hx Clostridium Difficile, Hx Hepatitis, Hx Human Immunodeficiency Virus (HIV), Hx of Known/Suspected MRSA, Hx Shingles, Hx Tuberculosis, Hx Known/ Suspected VRE, Hx Known/Suspected VRSA, History Other Infectious Disease, Traveled Outside the [place] in Last 30 Days - Family History Known Family History: Positive: Other - cancer Negative: Diabetes, Renal Disease - Social History Occupation: Employed Full-time Lives: With Family Alcohol Use: None Hx Substance Use: No Substance Use Type: Reports: None Hx Tobacco Use: No Smoking Status (MU): Never Smoked Tobacco Have You Smoked in the Last Year: No Review of Systems Negative: Fever Positive: Other - dysphagia, choking sensation . Negative: Sore Throat Cardiovascular: Negative Negative: Shortness Of Breath, Cough Gastrointestinal: Negative Positive: Rash Neurological: Negative Psychological: Normal All Other Systems Reviewed And Are Negative: Yes Physical Exam - Summary Physical Exam Summary: Appearance: Ill-appearing, moderate pain distress, obese Skin: Warm, macular papular excoriated rash on abd and back Head: Normal Head inspection, Fine macular papular rash at the base of her chin Eyes: Conjunctiva clear ENT: Normal inspection, voice normal Neck: Supple, no nodes, no JVD. scar on R anterior neck dry and intact with minimal redness, pt is able to swallow her own secretions in the room without difficulty Respiratory: Lungs clear, Normal breath sounds, no respiratory distress, O2 sat 95 % on room air Cardio: RRR, No murmur, pulses normal, brisk capillary refill Abdomen: soft, nontender Bowel sounds: present Musculoskeletal: Strength Intact/ ROM intact. No calf tenderness. No edema. Psychological: Normal Neuro: Alert, muscle tone normal, no focal deficit Triage Information Reviewed: Yes Vital Signs On Initial Exam: Initial Vitals Temp Pulse Resp BP Pulse Ox 98.3 F 62 18 176/95 96 01/20/18 18:30 01/20/18 18:30 01/20/18 18:30 01/20/18 18:30 01/20/18 18:30 Vital Signs Reviewed: Yes Diagnostics - Vital Signs Vital Signs Temp Pulse Resp BP Pulse Ox 01/20/18 18:30 98.3 F 62 18 176/95 96 - Laboratory Result Diagrams: 01/20/18 20:14 01/20/18 20:14 Lab Statement: Any lab studies that have been ordered have been reviewed, and results considered in the medical decision making process. Re-Evaluation - Re-Evaluation First Eval Re-Evaluation Time: 21:15 Change: Improved - rash and "choking" improved after benadryl, solumedrol and pepcid. Awaiting CT neck. Neck Course/Dx - Course Course Of Treatment: With recent surgery, ED physician will do CT of soft tissue of neck with IV with contrast to evaluate for swelling, possible abscess , or any other abnormality. With rash and sensation of choking, ED physician will also treat as possible allergic reaction with Benadryl, solumedrol and pepcid. Will check strep, flu and mono for dysphagia and rash. Placed pt on oximetry to evaluate any possible hypoxia due to documentation of drop of O2 stat within the 80s while inpatient. Juliano Bragg will fill out order form for O2 if pt able to be DC'd. - Diagnoses Differential Dx/HQI/PQRI: Positive: Other - abscess, post op swelling, allergic reaction Provider Diagnoses: Dysphagia, Dermatitis, Sleep apnea, Status post cervical discectomy Discharge - Sign-Out/Discharge Documenting (check all that apply): Sign-Out Patient Signing out patient TO: Giancarlo Shin - Pending Neck CT report. - Discharge Plan Condition: Guarded Disposition: ADMITTED TO [facility] - Billing Disposition and Condition Condition: GUARDED Disposition: [facility]P[place] [place] The documentation as recorded by the Fantasma mosqueda Stephanie accurately reflects the service I personally performed and the decisions made by Robert bell Barbara J, MD.
[2018-01-20] MEDS ORDERED: Vancomycin(*) 2,000 MG in NS 0.9% 250 ML* 250 ML IVPB ONE (23:25)
[2018-01-20] MEDS ORDERED: Piperacillin/Tazobac ADVAN(*) 3.375 GM in NS 0.9% 100 ML* 100 ML IVPB ONE (23:25)
--- NOTE | 2018-01-21 00:14 | HP ---
H&P (Free Text) History and Physical: History and Physical Date of Admission: 01/20/18 Admission Location: Short Stay Surgical Unit Admitting Physician: Dr. James CC: Sore throat with swallowing, feeling of choking while sleeping HPI: This is a 42 year old female with past medical history significant for cervical disc disease C4-5 who underwent ACD F C4-5 on 01/17/[address] Liu. Post-operatively she experienced episodes of oxygen desaturation while sleeping and remained admitted for a second night for further observation. Hospital medicine was consulted and overnight oxygen saturation study was performed indicating periods of O2 sats below 88%. She was discharged on POD #2 after home oxygen was arranged through [facility]. However, after she arrived home, she was notified that her insurance was not going to cover the home oxygen and she therefore did not receive it. She called the neurosurgery neonatal pediatric nurse this afternoon with complaint of painful swallowing, feeling like there is a lump at the back of her throat and feeling like she is choking when she is falling asleep. The swallowing symptoms are present when she is attempting to swallow fluids, food and saliva. She states that she was able to get minimal sleep last night only when she was sitting up in a chair. She has been wearing the [place] J collar which has been uncomfortable. She also complains of an abdominal rash that she noticed earlier today. She notes incisional neck soreness but denies radiating pain. Denies headache, lightheadedness, dizziness , nausea, vomiting, chest pain, difficulty breathing while awake, vision changes , abdominal pain, numbness or weakness in the upper and lower extremities. Denies fever and chills. Past Medical History: 1. Cervical disc disease C4-5, s/p ACD F C4-5 01/17/18 2. Migraine 3. Anxiety 4. Depression 5. Psoriasis Past Surgical History: 1. ACD F C4-5 01/17/18 Dr. Liu 2. Gallbladder surgery 3. Sinus surgery Home Medications: 1. Citalopram 40mg PO QD 2. Atenolol 50mg PO QD 3. Ibuprofen 800mg PO TID PRN pain Allergies: 1. Hydromorphone 2. Erythromycin Family History: Noncontributory Social History: No history of alcohol dependence, smoking or recreational drug use. ROS: Full ROS completed. Pertinent findings stated in HPI and all others negative. Physical Exam: Vital Signs: Temp Pulse Resp BP Pulse Ox 98.3 F 62 18 176/95 96 01/20/18 18:30 01/20/18 18:30 01/20/18 18:30 01/20/18 18:30 01/20/18 18:30 General: Patient seen and examined in emergency room. Alert and oriented. No distress. Sitting comfortably on stretcher HEENT: Head is normocephalic and atraumatic. PERRL, EOMI, corrective lenses in place. Gross hearing intact. Moist mucus membranes. Posterior pharynx mildly erythematous with small white patches. Neck: Supple and without adenopathy. Surgical wound intact and without erythema , swelling or warmth. Anterior neck is tender, primarily near wound. No fluctuant area or rash. No drainage from incision. CV: Radial and pedal pulses 2+ and equal. Lungs: Breathing is nonlabored. Abdomen: The abdomen is obese. Abdomen is soft and nontender, nondistended. Pin point scabbed and erythematous rash covers abdomen and back. Neuro: Speech is clear and patient able to answer questions appropriately. Strength in upper extremities is 5/5 bilaterally. Sensation intact. Negative Hoffmans. Extremities: Full ROM Imagin. CT soft tissue neck on 01/20/18 shows ACD F C4-5 with good hardware placement , and soft tissue edema. Assessment: 42 yo female s/p cervical spine surgery on 01/17/18 presents with sore throat and difficulty breathing while sleeping. CT soft tissue neck obtained showing soft tissue swelling . Plan: 1. Neurosurgery to admit patient to short stay surgical unit for observation. Patient to be placed in room close to nursing station. 2. Hospitalist consult for comanagement medical conditions 3. Decadron 4mg IV Q6 4. Oxygen 2L via nasal cannula 5. Continuous pulse oximetry 6. Swallow evaluation in the morning 7. HOB no less than 30 degrees 8. Discontinue cervical collar 9. Vital signs and neuro checks Q4H 10. Up ad ernst activity 11. NPO except for meds until swallow evaluation 12. Dressing change as needed 13. Pain management 14. Bowel medications
[2018-01-21] MEDS: HYDROcodone/ACETAMIN 5-325 MG* 1 TAB PO PRN ×4 (01:42→22:45)
[2018-01-21] MEDS ORDERED: Dexamethasone IV* 4 MG in NS 0.9% 50 ML* 50 ML IVPB SCH (02:00)
[2018-01-21] MEDS: Atenolol TAB* 50 MG PO SCH ×2 (02:30→20:45)
[2018-01-21] MEDS: Citalopram TAB* 40 MG PO SCH ×2 (02:30→20:45)
[2018-01-21] MEDS: Dexamethasone IV* 4 MG/ML 1 ML (4 MG) IV SLOW PU SCH ×4 (02:33→20:27)
--- NOTE | 2018-01-21 05:33 | ED ---
Haroon Howell Nikita, scribed for Giancarlo Shin MD on 01/20/18 at 2312 . Progress - Progress Note Progress Note: This patient was signed out from Dr. Jones, pending disposition, awaiting neck CT. Neck CT: Pending official interpretation from radiologist. See [facility]. Consulted Dr. James at 2326 about the patient. He states that he has already seen the CT and feels this is NOT abscess but rather post surgical changes. I asked if he wanted antibiotics started but he states all further orders on the patient will be written by him and his team. He accepts the patient for admission and reports that they have all the care from here and doesn't want any more orders from the ED. Course/Dx - Course Course Of Treatment: With recent surgery, ED physician will do CT of soft tissue of neck with IV with contrast to evaluate for swelling, possible abscess or any other abnormality. With rash and sensation of choking, ED physician will also treat as possible allergic reaction with Benadryl and pepsid. Will check strep, flu and mono for dysphagia and rash. Placed pt on oximetry to evaluate any possible hypoxia due to documentation of drop of O2 stat within the 80s while inpatient. Laurentjvlackheribertomidt will fill out order form for O2. Radiologist is concerned that CT findings represent abscess. Neurosurgeon does not feel this is the case. They will admit and place all orders on patient. - Diagnoses Provider Diagnoses: Dysphagia, Dermatitis, Sleep apnea Discharge - Sign-Out/Discharge Documenting (check all that apply): Discharge - Discharge Plan Condition: Guarded Disposition: ADMITTED TO [facility] - Billing Disposition and Condition Condition: GUARDED Disposition: [facility]P-[facility] – [place] The documentation as recorded by the Haroon mosqueda Nikita accurately reflects the service I personally performed and the decisions made by , Giancarlo Shin MD.
--- NOTE | 2018-01-21 07:32 | PN ---
Progress Note - Progress Note Date of Service: 01/21/18 SOAP: Subjective: []Patient readmitted last PM secondary to choking sensation W/U revealed swelling anterior to plate ,felt she was going to choke to at home Given steroids in ER,better this AM Objective: []Neck soft Neuro intact Assessment: []Post op swelling Afebrile,normal white count No clinical evidence of abscess Plan: []Cont steroids IV Observation
--- NOTE | 2018-01-21 07:46 | RAD ---
HISTORY: Status post anterior cervical discectomy and fusion, dysphagia, choking sensation, surgery on January 17, 2018 COMPARISONS: None relevant TECHNIQUE: Multiple contiguous axial CT scans were obtained of the neck after the administration of nonionic intravenous contrast, with coronal and sagittal multiplanar reformations. FINDINGS: BRAIN AND ORBITS: The visualized brain and orbits are normal. PARANASAL SINUSES: The visualized paranasal sinuses are clear. SALIVARY GLANDS: The parotid glands, submandibular glands, sublingual glands are normal. NASAL CAVITY/NASOPHARYNX: The nasal cavity and nasopharynx are normal. ORAL CAVITY/OROPHARYNX: There is prevertebral and posterior pharyngeal soft tissue edema at the level of the inferior oropharynx and supraglottic larynx . There is no loculated fluid collection to suggest abscess. LARYNGEAL APPARATUS/HYPOPHARYNX: As noted above, there is prevertebral and posterior pharyngeal edema of the inferior oropharynx and supraglottic larynx. UPPER AIRWAY/UPPER ESOPHAGUS: The visualized upper airway and esophagus are normal. LUNG APICES: The lung apices are clear. THYROID GLAND: The thyroid gland is normal. LYMPH NODES: There is no lymphadenopathy by size criteria. VASCULATURE: The vasculature is unremarkable. BONES AND SOFT TISSUES: The patient is status post anterior cervical fusion at C4-C5. There is no appreciable hardware failure or osteolysis. There is extensive edema along the right anterior neck at the level of the thyroid cartilage. OTHER: None. IMPRESSION: 1. THERE IS POSTERIOR PHARYNGEAL AND PREVERTEBRAL SOFT TISSUE EDEMA OF THE INFERIOR OROPHARYNX AND SUPRAGLOTTIC LARYNX. THE DIFFERENTIAL INCLUDES POSTSURGICAL EDEMA VERSUS PHLEGMON. THERE IS NO LOCULATED FLUID COLLECTION TO SUGGEST ABSCESS. 2. STATUS POST ANTERIOR CERVICAL FUSION, WITH SUBCUTANEOUS EMPHYSEMA CONSISTENT WITH THE HISTORY OF RECENT SURGERY
[2018-01-21] MEDS: Nystatin SUSPENSION* 100000 UNITS/ML 5 ML UDC PO SCH ×3 (13:32→20:48)
[2018-01-21] MEDS ORDERED: diPHENhydraMINE PO* 25 MG PO PRN (16:36)
--- NOTE | 2018-01-21 19:29 | CONS ---
CC: DAMIR Hernandez; Dr. Liu; Dr. James* CONSULTATION REPORT: DATE OF CONSULTATION: 01/21/18 PRIMARY CARE PROVIDER: DAMIR Hernandez. REASON FOR CONSULTATION: Hypoxemia. HISTORY OF PRESENT ILLNESS: Audrey Hoang is a 42-year-old obese female who underwent anterior cervical diskectomy and fusion of C4-C5 with interbody cage and autologous bone graft and plate performed by Dr. Liu on 01/17/18. Postoperatively, she was discharged home on 01/19/18, but came back on 01/20/18 complaining of shortness of breath and inability to swallow. She was placed back on overnight observation due to the above-mentioned problems. Apparently, the patient had overnight pulse oximetry performed prior to her discharge that showed a significant amount of desaturation of below 88% at night. Despite that , the patient's insurance did not think that patient qualified for oxygen at home that was prescribed by the discharging physician. The patient states that she has had problems with swallowing, but it is better now after her swallow evaluation did show that she is okay for mechanical ground solids with extra sauces and thin liquids. PAST MEDICAL HISTORY: 1. History of anterior diskectomy on 01/17/[address] Liu. 2. Obesity. 3. History of migraines. 4. Psoriasis. 5. Anxiety. 6. Depression. 7. Neck pain. 8. Status post cholecystectomy. 9. History of sinus surgery. CURRENT MEDICATIONS: Include: 1. Dexamethasone 4 mg IV every 6 hours p.r.n. 2. Celexa 40 mg daily. 3. Atenolol 50 mg daily. 4. Benadryl 25 mg every 6 hours p.r.n. 5. Colace 100 mg b.i.d. p.r.n. 6. Famotidine 40 mg IV daily. 7. Hydrocodone with acetaminophen 1 tablet every 4 hours p.r.n. 8. Nystatin suspension 200,000 units 4 times a day for just diagnosed thrush. ALLERGIES: ERYTHROMYCIN and HYDROMORPHONE. FAMILY HISTORY: Positive for sister with lung cancer. SOCIAL HISTORY: The patient denies any tobacco, alcohol, or drug use. She wishes her mother and father to be her surrogate decision makers. REVIEW OF SYSTEMS: Positive for shortness of breath. Positive for difficulty swallowing. The patient stated that she is much improved since her admission. All the remaining 14 systems were reviewed with the patient and were otherwise negative. PHYSICAL EXAMINATION: Blood pressure of 141/83, heart rate of 51 and regular, respiratory rate 17, oxygen saturation 95% on room air, temperature 97.9. General: The patient is a very pleasant 42-year-old female who is in no acute distress. Alert, awake, and oriented x3. HEENT: Head: Atraumatic, normocephalic. Eyes: Pupils are equal, reactive to light and accommodation. Oropharynx clear. Mucosa moist. Neck: Supple. No JVD. No bruit bilaterally. The patient has an incision at the base of her anterior right side of her neck, approximately 3 to 4 cm with no evidence of wound dehiscence or infection. Respiratory: Clear to auscultation bilaterally. Cardiovascular : Regular rate and rhythm. No murmur. Abdomen: Soft, nontender. Bowel sounds present in all 4 quadrants. Extremities: There is trace bilateral pedal edema. Pulses are +2 bilaterally. There is no clubbing or cyanosis. Neuro Evaluation: Speech clear. Cranial nerves II through XII grossly intact. Motor strength is 5/5 bilaterally. LABORATORY DATA/DIAGNOSTIC STUDIES: Laboratory data obtained on 01/20/18 showed a white blood cell count of 10.4, hemoglobin of 12.1, hematocrit of 32, and platelets of 301. Sodium was 138, potassium 4.0, chloride 99, carbon dioxide 31, BUN 8, creatinine 0.68. C-reactive protein of 27. CT of the neck obtained in the emergency department showed posterior pharyngeal and paravertebral soft tissue edema of the anterior oropharynx and supraglottic larynx. The differential includes postsurgical edema versus phlegmon. There is no loculated fluid collection to suggest abscess. Status post anterior cervical fusion with subcutaneous emphysema consistent with history of recent surgery. ASSESSMENT AND PLAN: 1. In regards to the patient's problems with swallowing. The patient is okay for modified diet. I believe that most of the discomfort with swallowing and the pain is after the diskectomy and prevertebral edema. The neurosurgery service already started a treatment with Decadrone which will be continued 2. Postoperative edema. As above mentioned, it is treated by the neurosurgeon with Decadron with good results. 3. In regards to the patient's hypoxemia, I ordered another overnight pulse oximetry tonight, but I suspect the patient has obesity, hypoventilation syndrome and will require oxygen at night. She will also require outpatient sleep study. 4. For her hypertension, the patient is going to be continued on atenolol. 5. For depression, Celexa is going to be continued as previously ordered. TIME SPENT: Approximately 62 minutes were spent on consultation of this patient , more than half that time was spent [id number] with the patient during the interview and physical exam. Thank you very much for allowing me to see the patient in consultation. We will follow on daily basis. [id number]/[facility] #: [id number] MTDD
[2018-01-22] MEDS: Dexamethasone IV* 4 MG/ML 1 ML (4 MG) IV SLOW PU SCH ×4 (02:56→20:52)
[2018-01-22] MEDS: HYDROcodone/ACETAMIN 5-325 MG* 1 TAB PO PRN ×5 (03:02→21:50)
[2018-01-22] MEDS: Nystatin SUSPENSION* 100000 UNITS/ML 5 ML UDC PO SCH ×4 (08:14→20:51)
[2018-01-22] MEDS ORDERED: Senna TAB PO PRN (14:18)
[2018-01-22] MEDS: Docusate CAP* 100 MG PO PRN ×2 (14:22→21:50)
--- NOTE | 2018-01-22 15:16 | PN ---
Progress Note - Progress Note Date of Service: 01/22/18 SOAP: Subjective: []No events ON. Tolerates PO, mild difficulty swallowing. No voice or breathing problems. She ambulates very well. Her preop right UE pain has resolved. Voids Objective: []VSS, Afebrile Wound soft, clean, dry. Trachea midline, No evidence of hematoma. Neck soft. AAOx3, TODD ,CN II-XII grossly intact Motor 5/5 all extremities Sensory grossly intact to light touch. Assessment: []42 yof POD#5 sp ACDF C4-5 Plan: []Monitor VS, Neurochecks HOB > 45' Encourage ambulation. O2 Sat study overnight with good results. C spine lateral XR in am. Encourage ambulation. DC planning with steroid taper. Appreciate IM input. Prudencio Liu MD
--- NOTE | 2018-01-22 15:31 | PN ---
Subjective Date of Service: 01/22/18 Interval History: Pt feels well. Slept well last night. Denies SOB Objective Active Medications: Hydrocodone Bitart/Acetaminophen ([place] 5-325 Tab*) 1 tab PO Q4H PRN PRN Reason: PAIN Last Admin: 01/22/18 06:43 Dose: 1 tab Hydrocodone Bitart/Acetaminophen ([place] 5-325 Tab*) 2 tab PO Q4H PRN PRN Reason: SEVERE PAIN Last Admin: 01/22/18 13:14 Dose: 2 tab Atenolol (Tenormin Tab*) 50 mg PO BEDTIME ALONZO Last Admin: 01/21/18 20:45 Dose: 50 mg Citalopram Hydrobromide (Celexa Tab*) 40 mg PO BEDTIME ALONZO Last Admin: 01/21/18 20:45 Dose: 40 mg Dexamethasone Sodium Phosphate (Decadron Iv*) 4 mg IV SLOW PU Q6H ALONZO Last Admin: 01/22/18 13:14 Dose: 4 mg Diphenhydramine HCl (Benadryl Po*) 25 mg PO Q6H PRN PRN Reason: ITCHING Last Admin: 01/21/18 20:45 Dose: 25 mg Docusate Sodium (Colace Cap*) 100 mg PO BID PRN PRN Reason: CONSTIPATION Last Admin: 01/22/18 14:22 Dose: 100 mg Magnesium Hydroxide (Milk Of Magnesia Liq*) 30 ml PO DAILY [facility] Nystatin (Nystatin Suspension*) 200,000 units PO QID ALONZO Last Admin: 01/22/18 13:14 Dose: 200,000 units Senna (Senokot Tab*) 1 tab PO BEDTIME PRN PRN Reason: CONSTIPATION Vital Signs - 8 hr 01/22/18 01/22/18 01/22/18 08:10 09:00 13:14 Respiratory 18 20 14 Rate Oxygen Devices in Use Now: None Appearance: 42 yo F in NAD, AAOx3 Eyes: No Scleral Icterus, PERRLA Ears/Nose/Mouth/Throat: NL Teeth, Lips, Gums, Mucous Membranes Moist Neck: NL Appearance and Movements; NL JVP, Trachea Midline Respiratory: Symmetrical Chest Expansion and Respiratory Effort, Clear to Auscultation Cardiovascular: NL Sounds; No Murmurs; No JVD, RRR Abdominal: NL Sounds; No Tenderness; No Distention Lymphatic: No Cervical Adenopathy Extremities: No Edema, No Clubbing, Cyanosis Skin: No Nodules or Sclerosis, - - base of neck on R small incision, clean, no dehiscence noted Result Diagrams: 01/20/18 20:14 01/20/18 20:14 Assess/Plan/Problems-Billing Assessment: 42 yo f with h/o obesity, HTN, depression readmitted for airway issues after anterior cervical diskectomy on 01/17/18 - Patient Problems (1) Laryngeal edema Comment: Suspect due to post op status. Now on Decadron . Doing well. Overnight pulse oximetry improved, no need for 02 at home (2) Anxiety and depression Comment: - Continue citalopram (3) HTN (hypertension) Comment: labile on Atenolol, cont to monitor Status and Disposition: inpatient medicine consult. will follow
[2018-01-22] MEDS: Magnesium Hydroxide LIQ* 30 ML UDC PO SCH (15:57)
[2018-01-22] MEDS: Citalopram TAB* 40 MG PO SCH (20:50)
[2018-01-22] MEDS: Atenolol TAB* 50 MG PO SCH (20:50)
[2018-01-23] MEDS: Dexamethasone IV* 4 MG/ML 1 ML (4 MG) IV SLOW PU SCH ×2 (02:47→09:48)
[2018-01-23] MEDS: HYDROcodone/ACETAMIN 5-325 MG* 1 TAB PO PRN ×3 (04:56→19:20)
--- NOTE | 2018-01-23 08:55 | PN ---
Progress Note - Progress Note Date of Service: 01/23/18 SOAP: Subjective: []No events ON. Tolerates PO, no difficulty swallowing. No voice or breathing problems. She ambulates very well. No weakness, numbness or tingling of extremities. Preop right UE pain resolved. Voids. Wants to go home. Objective: []VSS, Afebrile Wound soft, clean, dry. Trachea midline, No evidence of hematoma. Neck soft. AAOx3, TODD ,CN II-XII grossly intact Motor 5/5 all extremities Sensory grossly intact to light touch. Assessment: []42 yof POD#6 sp ACDF C4-5 Plan: []]Monitor VS, Neurochecks HOB > 45' Encourage ambulation. C spine lateral XR today. DC planning with steroid taper if XR stable and ok with IM. Appreciate IM input. Prudencio Liu MD
--- NOTE | 2018-01-23 09:16 | RAD ---
HISTORY: Postop COMPARISONS: January 18, 2018 VIEWS: 2, lateral and swimmer's views of the cervical spine FINDINGS: The cervical spine is visualized from the skull base through T1. ALIGNMENT: The alignment is normal. VERTEBRAL BODIES: The patient is status post anterior cervical fusion with a fusion plate and screws at C4 and C5. There is no hardware failure or osteolysis. JOINTS: There is no appreciable subluxation. INTERVERTEBRAL DISCS: Intervertebral graft material is noted at C4-C5. SOFT TISSUE: There is prevertebral soft tissue swelling OTHER: The skull base is normal. The lung apices are clear. IMPRESSION: STATUS POST ANTERIOR CERVICAL FUSION. PREVERTEBRAL SOFT TISSUE SWELLING.
[2018-01-23] MEDS: Magnesium Hydroxide LIQ* 30 ML UDC PO SCH (09:45)
[2018-01-23] MEDS: Nystatin SUSPENSION* 100000 UNITS/ML 5 ML UDC PO SCH ×4 (09:46→22:01)
[2018-01-23] MEDS ORDERED: Dexamethasone TAB* 4 MG PO ONE (18:00)
[2018-01-23] MEDS: Docusate CAP* 100 MG PO PRN (22:01)
[2018-01-23] MEDS: Atenolol TAB* 50 MG PO SCH (22:01)
[2018-01-23] MEDS: Citalopram TAB* 40 MG PO SCH (22:01)
[2018-01-24] MEDS ORDERED: Dexamethasone IV* 4 MG/ML 1 ML (4 MG) IV SLOW PU SCH (02:00)
[2018-01-24] MEDS: Dexamethasone TAB* 4 MG PO SCH ×3 (02:41→19:22)
[2018-01-24] MEDS ORDERED: hydrALAZINE IV* 20 MG/ML VIAL IV PRN (03:35)
[2018-01-24] MEDS ORDERED: Acetaminophen TAB* 325 MG ONE (03:43)
[2018-01-24] MEDS ORDERED: amLODIPine TAB* 5 MG ONE (03:43)
[2018-01-24] MEDS: Acetaminophen TAB* 325 MG PO PRN (03:44)
[2018-01-24] MEDS ORDERED: amLODIPine TAB* 5 MG PO SCH (04:00)
[2018-01-24] MEDS ORDERED: Ondansetron ODT TAB* 4 MG SL PRN (04:08)
[2018-01-24] MEDS ORDERED: Ondansetron ODT TAB* 4 MG ONE (04:09)
[2018-01-24] MEDS ORDERED: traMADol TAB* 50 MG ONE (06:17)
[2018-01-24] MEDS: traMADol TAB* 50 MG PO PRN (06:18)
[2018-01-24] MEDS ORDERED: amLODIPine TAB* 5 MG PO ONE (07:36)
--- NOTE | 2018-01-24 08:34 | RAD ---
INDICATION: Headache, postop cervical spine fusion patient. COMPARISON: There are no prior studies available for comparison. TECHNIQUE: Contiguous axial sections of the brain were obtained from the skull base to the vertex without contrast. FINDINGS: The ventricles, cisterns and sulci are within normal limits. No significant focal abnormality or mass effect is seen. There is no evidence for hemorrhage. No significant focal osseous abnormality is seen. The visualized portion of the paranasal sinuses and mastoid air cells appear clear. IMPRESSION: NO EVIDENCE FOR ACUTE INTRACRANIAL ABNORMALITY.
[2018-01-24] MEDS ORDERED: hydrALAZINE IV* 20 MG/ML VIAL IV SLOW PU PRN (09:11)
[2018-01-24] MEDS: Magnesium Hydroxide LIQ* 30 ML UDC PO SCH (09:51)
[2018-01-24] MEDS: Nystatin SUSPENSION* 100000 UNITS/ML 5 ML UDC PO SCH ×4 (09:53→21:16)
[2018-01-24] MEDS: HYDROcodone/ACETAMIN 5-325 MG* 1 TAB PO PRN (10:08)
--- NOTE | 2018-01-24 10:22 | PN ---
Subjective Date of Service: 01/24/18 Interval History: Pt was noted to have SBP 230 last night , confused and with generalized weakness. Now oriented, c/o frontal headache, when asked to be transferred to ICU for HTN management , pt refused. she is aware that it may be dangerous for her to stay in [facility] without aggressive HTN tx Objective Active Medications: Acetaminophen (Tylenol Tab*) 650 mg PO Q6H PRN PRN Reason: FEVER/PAIN Last Admin: 01/24/18 03:44 Dose: 650 mg Hydrocodone Bitart/Acetaminophen ([place] 5-325 Tab*) 1 tab PO Q4H PRN PRN Reason: PAIN Last Admin: 01/23/18 04:56 Dose: 1 tab Hydrocodone Bitart/Acetaminophen ([place] 5-325 Tab*) 2 tab PO Q4H PRN PRN Reason: SEVERE PAIN Last Admin: 01/24/18 10:08 Dose: 2 tab Amlodipine Besylate (Norvasc Tab*) 10 mg PO 0900 ALONZO Atenolol (Tenormin Tab*) 50 mg PO BEDTIME ALONZO Last Admin: 01/23/18 22:01 Dose: 50 mg Citalopram Hydrobromide (Celexa Tab*) 40 mg PO BEDTIME ALONZO Last Admin: 01/23/18 22:01 Dose: 40 mg Dexamethasone (Decadron Tab*) 2 mg PO Q8H ALONZO Last Admin: 01/24/18 09:49 Dose: 2 mg Diphenhydramine HCl (Benadryl Po*) 25 mg PO Q6H PRN PRN Reason: ITCHING Last Admin: 01/21/18 20:45 Dose: 25 mg Docusate Sodium (Colace Cap*) 100 mg PO BID PRN PRN Reason: CONSTIPATION Last Admin: 01/23/18 22:01 Dose: 100 mg Hydralazine HCl (Apresoline Iv*) 5 mg IV SLOW PU Q6H PRN PRN Reason: BLOOD PRESSURE Last Admin: 01/24/18 10:01 Dose: 5 mg Lactulose (Lactulose*) 30 ml PO TID ALONZO Last Admin: 01/24/18 09:49 Dose: 30 ml Magnesium Hydroxide (Milk Of Magnesia Liq*) 30 ml PO DAILY ALONZO Last Admin: 01/24/18 09:51 Dose: 30 ml Nystatin (Nystatin Suspension*) 200,000 units PO QID ALONZO Last Admin: 01/24/18 09:53 Dose: 200,000 units Ondansetron HCl (Zofran Odt Tab*) 4 mg SL Q6H PRN PRN Reason: NAUSEA/VOMITING Senna (Senokot Tab*) 1 tab PO BEDTIME PRN PRN Reason: CONSTIPATION Last Admin: 01/22/18 21:50 Dose: 1 tab Tramadol HCl (Ultram*) 50 mg PO Q6H PRN PRN Reason: PAIN Last Admin: 01/24/18 06:18 Dose: 50 mg Vital Signs - 8 hr 01/24/18 01/24/18 01/24/18 03:23 03:25 03:28 Temperature 98.4 F Pulse Rate 51 52 49 Respiratory 16 Rate Blood Pressure 187/90 (mmHg) O2 Sat by Pulse 97 Oximetry 01/24/18 01/24/18 01/24/18 05:47 06:18 07:19 Temperature 98.3 F Pulse Rate 51 49 Respiratory 20 20 20 Rate Blood Pressure 182/90 (mmHg) O2 Sat by Pulse 95 99 Oximetry 01/24/18 01/24/18 01/24/18 07:28 07:53 08:54 Temperature Pulse Rate 53 Respiratory Rate Blood Pressure 205/115 157/83 230/120 (mmHg) O2 Sat by Pulse 97 Oximetry 01/24/18 01/24/18 01/24/18 08:58 10:04 10:08 Temperature Pulse Rate Respiratory 18 Rate Blood Pressure 190/124 230/126 (mmHg) O2 Sat by Pulse Oximetry Oxygen Devices in Use Now: None Appearance: 42 yo F in nAD, aAOx3 Eyes: No Scleral Icterus, PERRLA Ears/Nose/Mouth/Throat: NL Teeth, Lips, Gums, Mucous Membranes Moist Neck: NL Appearance and Movements; NL JVP, Trachea Midline Respiratory: Symmetrical Chest Expansion and Respiratory Effort, - - faint bibasiliar crackles Cardiovascular: NL Sounds; No Murmurs; No JVD, RRR Abdominal: NL Sounds; No Tenderness; No Distention Lymphatic: No Cervical Adenopathy Extremities: No Clubbing, Cyanosis, - - trace pedal edema b/l Skin: No Rash or Ulcers, No Nodules or Sclerosis Neurological: Alert and Oriented x 3, NL Muscle Strength and Tone Result Diagrams: 01/20/18 20:14 01/20/18 20:14 Assess/Plan/Problems-Billing Assessment: 42 yo f with h/o obesity, HTN, depression readmitted for airway issues after anterior cervical diskectomy on 01/17/18 - Patient Problems (1) Hypertensive emergency Comment: suspect steroids have contributed Added Hydralazine. Norvasc and HCTZ started. cont Atenolol. Pt neds to be transferred to ICU to be placed on nicardipine gtt. HR in 40's-50' s limits PO/intermittent IV med tx. But she refuses. CT brain unremerkable, and no neuro deficits noted. Cont neurochecks Asked neurology to see pt in consult for any further suggestions (2) Laryngeal edema Comment: Suspect due to post op status. Improved on decadron, now on PO dose (3) Anxiety and depression Comment: - Continue citalopram Status and Disposition: inpatient medicine consult. will follow
[2018-01-24] MEDS ORDERED: Nitroglycerin 2% OINT* 1 GM PAK TOPICAL ONE (10:27)
[2018-01-24] MEDS: LORazepam TAB(*) 0.5 MG PO PRN ×2 (10:40→21:10)
[2018-01-24 10:51] LABS: ABS Basophils 0.1 10^3/ul (0-0.2); ABS Eosinophils 0 10^3/ul (0-0.6); ABS Lymphocytes 2.8 10^3/ul (1.0-4.8); ABS Monocytes 0.9 10^3/ul (0-0.8); ABS Neutrophils 10.7 10^3/ul (1.5-7.7); ABS Nucleated RBC 0 10^3/ul; Eosinophil % 0.1 % (0-6); Hematocrit 43 % (35-47); Hemoglobin 14.6 g/dl (12.0-16.0); Lymphocyte % 19.2 % (25-47); Mean Corpuscular HGB Conc 34 g/dl (31-36); Mean Corpuscular Hemoglobin 31 pg (27-31); Mean Corpuscular Volume 90 fL (80-97); Mean Platelet Volume 7.5 um3 (7.4-10.4); Nucleated Red Blood Cells % 0; Platelet Count 463 10^3/ul (150-450); Red Blood Count 4.77 10^6/ul (4.0-5.4); Red Cell Distribution Width 14 % (10.5-15); White Blood Count 14.4 10^3/ul (3.5-10.8)
[2018-01-24 11:08] LABS: EGFR Non-African American 84.3 (>60)
[2018-01-24] MEDS ORDERED: Labetalol IV* 5 MG/ML 20 ML VIAL IV PUSH ONE (11:40)
[2018-01-24] MEDS ORDERED: NICARDIPINE 0.1 MG/ML ONE (12:44)
[2018-01-24] MEDS ORDERED: IVPREMIX ONE (12:44)
[2018-01-24] MEDS ORDERED: niCARdipine 0.1MG/ML IVPREMIX* 20 MG/200 ML BAG IV SCH (13:00)
[2018-01-24] MEDS: Ibuprofen TAB* 600 MG PO PRN ×2 (14:54→23:53)
--- NOTE | 2018-01-24 19:01 | CONS ---
NEUROLOGY CONSULTATION: DATE OF CONSULT: 01/24/18 CONSULTING PROVIDER: Dr. Little Cruz. REASON FOR CONSULT: Hypertension, headache, confusion. HISTORY OF PRESENT ILLNESS: Audrey Hoang is a 42-year-old woman with a history of morbid obesity, migraine headaches, and herniated cervical disk, status post ACDF on 01/17/18, who was readmitted to the hospital on 01/21/18 with difficulty swallowing. The patient reports that she had had neck pain and right radicular arm pain since June and Dr. Liu performed the surgery on 01/17/18. She did well postoperatively though with some evidence of overnight hypoxia and was discharged on 01/20/18. She then returned the following day reporting difficulty swallowing. She was found to have some prevertebral soft tissue edema and was started on Decadron initially four times daily 4 mg IV. She was reportedly doing well and Decadron was being tapered and was able to eat and swallow well when last night, she developed significant hypertension. Her blood pressure was up to 230 systolic at 8 o'clock this morning as well as 10 o'clock this morning. The notes indicate that she may have also had a blood pressure of 230 systolic last evening around 2300, though I do not see that in the record of her blood pressures in [facility]. Her blood pressures were elevated into the 170s and 180s overnight, however. Around 6 a.m. this morning, she expressed that she had to get out of bed to go the bathroom and had generalized weakness and required 2 people to help her to the bathroom. She had severe headache and some confusion as well. Today, she received amlodipine 5 mg once at 3:44 in the morning and again at 7:58 in the morning. She also takes atenolol chronically for migraine prophylaxis and took that last night at 2200. She was given 0.5 mg of Ativan at 10:40 this morning and an inch of nitro paste was placed at 11:32. She was transferred to the ICU with the thought that she would require nicardipine drip, but her blood pressure then came under better control. She has had some bradycardia into the 50s today, which has somewhat limited the IV medications available to give to her for her blood pressure. On my evaluation, she states that she is sleepy and that she did not sleep much at all last night. She continues to have a headache, but it is improved and now about 4/10. The pain is located posteriorly whereas her migraines are usually frontal. She was nauseated with this earlier but no longer. She denies any light or sound sensitivity with this headache. She typically gets photophobia with her migraines. She reportedly also had another overnight oximetry test last night or the night before, which by report did not show any hypoxia, though I had difficulty locating that report myself. Neurology consultation was requested due to her mental status changes. PAST MEDICAL HISTORY: 1. Migraine headaches. 2. Cervical radiculopathy, status post ACDF on 01/17/18. 3. Obesity. 4. Psoriasis. 5. Anxiety. 6. Depression. 7. Status post cholecystectomy. 8. History of sinus surgery. CURRENT MEDICATIONS: 1. Docusate 100 mg t.i.d. p.r.n. 2. [place] 5/325 q.4 hours p.r.n. last taken yesterday at 5 a.m. 3. [place] 5/325 two tablets q.4 p.r.n. last given this morning at 10 a.m. 4. Atenolol 50 mg. 5. Citalopram 40 mg. 6. Nystatin four times daily. 7. Senna p.r.n. 8. Lactulose 30 mL 3 times daily. 9. Dexamethasone 2 mg p.o. q.8 hours, which was started this morning at 2:40 a.m. 10. Tylenol 650 q.6 p.r.n. 11. Ondansetron 4 mg q.6 p.r.n. 12. Hydralazine 5 mg IV q.6 p.r.n. last given at 10 a.m. 13. Lorazepam 0.5 mg q.6 p.r.n. last given at 10:40 a.m. 14. Labetalol 10 mg IV, which was not given. 15. Nicardipine drip, which has not been given. 16. Ibuprofen 600 mg q.6 p.r.n., not given. ALLERGIES: ERYTHROMYCIN and HYDROMORPHONE. FAMILY HISTORY: Sister with lung cancer. SOCIAL HISTORY: She does not smoke, use alcohol or drugs. REVIEW OF SYSTEMS: As per the HPI, otherwise negative. PHYSICAL EXAM: Vital Signs: Currently, temperature is 97.2, blood pressure 117 /74, heart rate 52, oxygen saturation 95% on room air. When I was examining the patient, her monitor alarmed several times because her heart rate fell to 50, but then would come back in to the low 50s. On general examination, she appeared sleepy, but was able to stay awake to participate with the exam. She is in no acute distress. Heart within a regular rate and rhythm with no murmurs, rubs, or gallops. Lungs are clear to auscultation bilaterally. She has psoriatic plaques over her shins bilaterally as well as her upper extremities. She is morbidly obese. On neurologic exam, she was fully oriented. Her speech was fluent without dysarthria or aphasia. She was able to explain the [employer] picture, name all objects, and read all phrases on the stroke cards without difficulties. Pupils were equal, round, and reactive from 3 to 2 mm bilaterally. Her fundi were difficult to visualize. Versions are full without nystagmus. [place] are full to confrontation. Facial sensation and musculature is full and symmetric. Hearing is intact to finger rub. The palate elevates symmetrically and the tongue is midline. On motor examination, she has normal bulk and tone in the upper and lower extremities. Strength is full with no pronator drift. Sensation was intact to light touch with no extinction to double simultaneous stimulation. Reflexes were 3+ in the upper extremities and at the knees, 2+ at ankles with downgoing toes bilaterally. [id number] and [id number] were without ataxia. I did not ambulate her. DIAGNOSTIC STUDIES/LAB DATA: Reviewed includes CMP this morning notable for sodium of 136, chloride 97, normal renal function, glucose of 158. Normal liver function. Her CRP on 01/20/18 was 27.52. CBC notable for a white blood cell count of 14.4 with predominance of neutrophils and platelets of 463, which were up from 305 on 01/20/18. Her urine was negative on 01/20/18. She was swabbed for flu A and B as well as strep and Monospot on 01/20/18, which were all negative. Her brain CT was personally reviewed and showed no evidence of any acute intracranial abnormality. IMPRESSION AND PLAN: Audrey Hoang is a 42-year-old woman with morbid obesity, who is a few days postop from an anterior cervical diskectomy and fusion, who experienced severe hypertension associated with some mental status changes as well as headache overnight. She neurologically is nonfocal at this time and only appears to be sleepy, which is most likely related to the fact that she did not sleep well last night and has received several sedating medications this morning. She is also hyperreflexic but this is symmetric and she reports that she believes this to be her baseline. Mental status changes may have been secondary to her extreme hypertension with hypertensive encephalopathy picture. As to the reason for initial hypertension, I question whether this is an adverse reaction to the dexamethasone. Obstructive sleep apnea would be within the differential here as well for the hypertension though, it sounds like an overnight oximetry study did not document this. At this point, I do not think she needs to have MRI of the brain, but if she has any further neurologic changes such as return of her confusion, vision changes such as blurring of her vision, or return of her headache, then I would obtain MRI scan of the brain without contrast to see if she has evidence of posterior reversible encephalopathy syndrome. I would closely monitor her blood pressures as well and continue to taper the steroids as able. I would aim to have her blood pressures remain below systolic of 160 and diastolic of 90. Thank you for this consultation. [id number]/[facility] #: [id number] JUNE
[2018-01-24] MEDS: Citalopram TAB* 40 MG PO SCH (21:09)
[2018-01-24] MEDS: Atenolol TAB* 50 MG PO SCH (21:10)
[2018-01-25] MEDS: Dexamethasone TAB* 1 MG PO SCH ×2 (01:42→15:42)
[2018-01-25] MEDS: Acetaminophen TAB* 325 MG PO PRN (01:43)
[2018-01-25] MEDS: Ibuprofen TAB* 600 MG PO PRN (06:09)
[2018-01-25] MEDS ORDERED: amLODIPine TAB* 5 MG PO SCH (09:00)
[2018-01-25] MEDS: Magnesium Hydroxide LIQ* 30 ML UDC PO SCH (09:58)
[2018-01-25] MEDS: amLODIPine TAB* 5 MG PO SCH (10:02)
[2018-01-25] MEDS: Nystatin SUSPENSION* 100000 UNITS/ML 5 ML UDC PO SCH ×4 (10:02→21:16)
[2018-01-25] MEDS ORDERED: Omeprazole CAP* 20 MG PO ONE (12:37)
[2018-01-25] MEDS: HYDROcodone/ACETAMIN 5-325 MG* 1 TAB PO PRN ×2 (12:49→17:18)
--- NOTE | 2018-01-25 13:18 | PN ---
Subjective Date of Service: 01/25/18 Interval History: Pt still c/o frontal headache. Appears slightly lethargic Objective Active Medications: Acetaminophen (Tylenol Tab*) 650 mg PO Q6H PRN PRN Reason: FEVER/PAIN Last Admin: 01/25/18 01:43 Dose: 650 mg Hydrocodone Bitart/Acetaminophen (Randolph 5-325 Tab*) 1 tab PO Q4H PRN PRN Reason: PAIN Last Admin: 01/23/18 04:56 Dose: 1 tab Hydrocodone Bitart/Acetaminophen (Randolph 5-325 Tab*) 2 tab PO Q4H PRN PRN Reason: SEVERE PAIN Last Admin: 01/25/18 12:49 Dose: 2 tab Amlodipine Besylate (Norvasc Tab*) 10 mg PO 0900 ALONZO Last Admin: 01/25/18 10:02 Dose: 10 mg Atenolol (Tenormin Tab*) 50 mg PO BEDTIME ALONZO Last Admin: 01/24/18 21:10 Dose: 50 mg Citalopram Hydrobromide (Celexa Tab*) 40 mg PO BEDTIME ALONZO Last Admin: 01/24/18 21:09 Dose: 40 mg Dexamethasone (Decadron Tab*) 2 mg PO Q12H ALONZO Stop: 01/27/18 01:00 Last Admin: 01/25/18 01:42 Dose: 2 mg Diphenhydramine HCl (Benadryl Po*) 25 mg PO Q6H PRN PRN Reason: ITCHING Last Admin: 01/21/18 20:45 Dose: 25 mg Docusate Sodium (Colace Cap*) 100 mg PO BID PRN PRN Reason: CONSTIPATION Last Admin: 01/23/18 22:01 Dose: 100 mg Hydralazine HCl (Apresoline Iv*) 5 mg IV SLOW PU Q6H PRN PRN Reason: BLOOD PRESSURE Last Admin: 01/24/18 10:01 Dose: 5 mg Ibuprofen (Motrin Tab*) 600 mg PO Q6H PRN PRN Reason: PAIN Last Admin: 01/25/18 06:09 Dose: 600 mg Lactulose (Lactulose*) 30 ml PO TID ALONZO Last Admin: 01/25/18 09:58 Dose: Not Given Lorazepam (Ativan Tab(*)) 0.5 mg PO Q6H PRN PRN Reason: ANXIETY Last Admin: 01/24/18 21:10 Dose: 0.5 mg Magnesium Hydroxide (Milk Of Magnesia Liq*) 30 ml PO DAILY [facility] Last Admin: 01/25/18 09:58 Dose: Not Given Nystatin (Nystatin Suspension*) 200,000 units PO QID [facility] Last Admin: 01/25/18 12:48 Dose: 200,000 units Omeprazole (Prilosec Cap*) 20 mg PO DAILY@0600 [facility] Ondansetron HCl (Zofran Odt Tab*) 4 mg SL Q6H PRN PRN Reason: NAUSEA/VOMITING Senna (Senokot Tab*) 1 tab PO BEDTIME PRN PRN Reason: CONSTIPATION Last Admin: 01/22/18 21:50 Dose: 1 tab Tramadol HCl (Ultram*) 50 mg PO Q6H PRN PRN Reason: PAIN Last Admin: 01/24/18 06:18 Dose: 50 mg Vital Signs - 8 hr 01/25/18 01/25/18 01/25/18 07:26 09:50 11:08 Temperature 98.3 F 98.5 F Pulse Rate 44 51 Respiratory 16 16 16 Rate Blood Pressure 131/81 128/71 (mmHg) O2 Sat by Pulse 97 96 Oximetry 01/25/18 12:49 Temperature Pulse Rate Respiratory 16 Rate Blood Pressure (mmHg) O2 Sat by Pulse Oximetry Oxygen Devices in Use Now: None Appearance: 42 yo f in nAD, aAOx3, half asleep in bed, wakes up to talk with no difficulties Eyes: No Scleral Icterus, PERRLA Ears/Nose/Mouth/Throat: NL Teeth, Lips, Gums, Mucous Membranes Moist Neck: NL Appearance and Movements; NL JVP, Trachea Midline Respiratory: Symmetrical Chest Expansion and Respiratory Effort, Clear to Auscultation Cardiovascular: NL Sounds; No Murmurs; No JVD, RRR Abdominal: NL Sounds; No Tenderness; No Distention, No Hepatosplenomegaly Lymphatic: No Cervical Adenopathy Extremities: No Edema, No Clubbing, Cyanosis Skin: No Nodules or Sclerosis, - - R base of neck incision healing, no blair, no dehiscence Neurological: Alert and Oriented x 3, NL Muscle Strength and Tone Result Diagrams: 01/24/18 10:39 01/24/18 10:39 Assess/Plan/Problems-Billing Assessment: 42 yo f with h/o obesity, HTN, depression readmitted for airway issues after anterior cervical diskectomy on 01/17/18 - Patient Problems (1) Hypertensive emergency Comment: suspect steroids have contributed Now better controled. was in ICU in PM on 01/24/18 but eventually did not need nicardipine gtt and was transferred back to [facility]. Norvasc started on 01/23/18. cont Atenolol. No neuro deficits noted. Cont neurochecks Pt still seems mildly lethargic and c/o frontal headache. D/w neurology and DR. Liu. will obtain MRI brain to eval for PRES, of CVA (2) Laryngeal edema Comment: Suspect due to post op status. Improved on decadron, now on PO dose (3) Anxiety and depression Comment: - Continue citalopram Status and Disposition: inpatient medicine consult. will follow
--- NOTE | 2018-01-25 14:26 | RAD ---
HISTORY: Headache, hypertension, altered mental status COMPARISONS: None TECHNIQUE: The following sequences were obtained of the head: Sagittal T1-weighted images, axial T2-weighted images, axial FLAIR images, axial susceptibility weighted images, axial T1-weighted images. Additionally, axial diffusion-weighted images were obtained with calculated apparent diffusion coefficients. FINDINGS: The study is limited by patient motion artifact. HEMORRHAGE/INFARCT: There is no hemorrhage or acute infarct. MASSES/SHIFT: There is no mass or shift. EXTRA-AXIAL SPACES/MENINGES: There are no extra-axial fluid collections. SULCI AND VENTRICLES: The sulci and ventricles are normal in size and position for the patient's stated age. CEREBRUM: There are no focal parenchymal abnormalities. BRAINSTEM: There are no focal parenchymal abnormalities. CEREBELLUM: There are no focal parenchymal abnormalities. The cerebellar tonsils are normal in size and position. SELLA: The sella is normal. PINEAL: The pineal region is clear. CP ANGLE/TEMPORAL BONES: The labyrinthine structures are grossly normal. VESSELS: Normal flow-voids are noted within the visualized vertebral vasculature. DIFFUSION ABNORMALITIES: There are no diffusion abnormalities. PARANASAL SINUSES/MASTOIDS: The paranasal sinuses are clear. ORBITS: The orbits are unremarkable. BONES AND SOFT TISSUE: No bone or soft tissue abnormalities are noted. OTHER: None IMPRESSION: LIMITED STUDY. UNREMARKABLE MRI OF THE BRAIN WITHIN THE LIMITATIONS OF THE STUDY.
[2018-01-25 15:12] LABS: ABS Basophils 0.1 10^3/ul (0-0.2); ABS Eosinophils 0.1 10^3/ul (0-0.6); ABS Lymphocytes 3.7 10^3/ul (1.0-4.8); ABS Monocytes 1.4 10^3/ul (0-0.8); ABS Neutrophils 10.1 10^3/ul (1.5-7.7); ABS Nucleated RBC 0 10^3/ul; Eosinophil % 0.5 % (0-6); Hematocrit 44 % (35-47); Hemoglobin 14.8 g/dl (12.0-16.0); Lymphocyte % 24.4 % (25-47); Mean Corpuscular HGB Conc 34 g/dl (31-36); Mean Corpuscular Hemoglobin 30 pg (27-31); Mean Corpuscular Volume 90 fL (80-97); Mean Platelet Volume 7.2 um3 (7.4-10.4); Nucleated Red Blood Cells % 0; Platelet Count 469 10^3/ul (150-450); Red Blood Count 4.92 10^6/ul (4.0-5.4); Red Cell Distribution Width 14 % (10.5-15); White Blood Count 15.3 10^3/ul (3.5-10.8)
[2018-01-25] MEDS: Atenolol TAB* 50 MG PO SCH (21:15)
[2018-01-25] MEDS: Citalopram TAB* 40 MG PO SCH (21:15)
--- NOTE | 2018-01-25 22:47 | PN ---
Progress Note - Progress Note Date of Service: 01/25/18 SOAP: Subjective: []Patient was seen earlier twice. No events ON. Tolerates PO, no difficulty swallowing. No voice or breathing problems. No weakness, numbness or tingling of extremities. Mild ABBOTT. No positional ABBOTT. Patient was transferred yesterday to ICU for observation and returned to floor. Objective: []VSS, Afebrile Wound soft, clean, dry. Trachea midline, No evidence of hematoma. Neck soft. AAOx3, TODD ,CN II-XII grossly intact Motor 5/5 all extremities Sensory grossly intact to light touch. Assessment: []42 yof POD#7 sp ACDF C4-5 Plan: []Monitor VS, Neurochecks HOB > 45' Encourage ambulation. MRI brain : normal Appreciate IM, Neurology input. Prudencio Liu MD
[2018-01-26] MEDS: Dexamethasone TAB* 1 MG PO SCH (02:11)
[2018-01-26] MEDS: Ibuprofen TAB* 600 MG PO PRN (03:42)
[2018-01-26] MEDS: traMADol TAB* 50 MG PO PRN (05:53)
[2018-01-26] MEDS ORDERED: Omeprazole CAP* 20 MG PO SCH (06:00)
[2018-01-26] MEDS: amLODIPine TAB* 5 MG PO SCH (10:19)
[2018-01-26] MEDS: Nystatin SUSPENSION* 100000 UNITS/ML 5 ML UDC PO SCH (10:20)
[2018-01-26] MEDS: Magnesium Hydroxide LIQ* 30 ML UDC PO SCH (10:22)
[2018-01-26 12:03] VITALS: BP 143/66
--- NOTE | 2018-01-26 12:03 | DS ---
CC: Dr. Liu; Dr. James; Dr. Dickerson; DAMIR Hernandez; DISCHARGE SUMMARY: DATE OF ADMISSION: 01/21/18 DATE OF DISCHARGE: 01/26/18 PRIMARY CARE PROVIDER: DAMIR Hernandez DISCHARGE DIAGNOSES: 1. Respiratory compromise due to postoperative prevertebral edema. 2. Status post anterior diskectomy performed by Dr. Liu on 01/17/18. 3. Hypertensive emergency likely side effect of high dose steroids. SECONDARY DIAGNOSES: 1. History of migraine headaches. 2. History of depression. 3. Status post anterior cervical diskectomy on 01/17/18 HOSPITAL COURSE: Audrey Hoang is a 42-year-old female who was admitted to the hospital on 01/21/[address] she was originally discharged a day earlier after her C- spine surgery. The patient was original ly prescribed oxygen to sleep with at night, but her insurance did not cover the oxygen. Subsequentl y she came in feeling that she is choking and unable to breathe. She was placed on high-dose dexamet hasone for prevertebral edema. Her overnight pulse oximetry was performed a second time postop and t he patient was noted to have significant hypoxemia. The patient underwent swallow evaluation and was noted to be swallowing fine on ground diet and thin liquids. She continued on IV steroids throughout the hospital stay until the night of 01/23/18 when she was no avery to be markedly hypertensive with systolic pressures in the 200s and confused. She was diagnosed with hypertensive emergency, advised to be transferred to intensive care unit for nicardipine drip, b ut she refused. Eventually, she agreed to be transferred, and at that time, her blood pressure starte d to normalize and by the time she actually was observed in the intensive care unit on 01/24/18, her pressures at that point were fine and she did not require nicardipine drip. Her altered mental statu s resolved in the morning on 01/24/18 lasting less than several hours at night. Due to that, she was seen by Dr. Dickerson in consultation who felt that patient had hypertensive emergency at that point. U nfortunately, the events of that night set off patient's migraine headache and she continued to have migraine headaches for the next couple of days. Subsequent brain MRI performed on 01/25/18, was unrem arkable. The patient's migraine headaches started resolving, and by the time of discharge, she compl ains only of mild frontal headache consistent with her usual migraine headache. The patient was noted to be bradycardic to a heart rate in the 40s at night. She had been on atenolo l for migraine prevention. Her atenolol is going to be halved to 25 mg at night and she was also add ed Norvasc for blood pressure control at that point. Her dexamethasone was tapered down to a small p .o. dose and patient is going to be discharged on the remaining taper at home. The patient is going to be discharged home with recommendation to follow up with her primary care pro vider in [address] Liu' office with an appointment on 01/30/18. MEDICATIONS AT DISCHARGE: 1. Ibuprofen 600 mg on a p.r.n. basis. 2. Hydrocodone/acetaminophen 5/325 mg 1 tablet every 4 hours p.r.n. 3. Decadron taper 2 tablets tonight, 1 tablet every 12 hours for another 2 days, 1 tablet every 24 h ours for another 2 days and then stop. 4. Celexa 40 mg daily. 5. Atenolol with the lower dose of 25 mg at bedtime 6. Norvasc 5 mg daily. LABORATORY DATA AND STUDIES PERFORMED DURING HOSPITAL STAY: Included: On 01/25/18, white blood cell count 15.3, hemoglobin of 14.8, hematocrit 44, and platelets of 469. O n 01/24/18, sodium of 136, potassium 3.9, chloride 97, carbon dioxide 28, BUN 14, creatinine 0.75. C -reactive protein was 1.99 on 01/25/18. Influenza and Monospot testing was negative at admission. Brain MRI obtained on 01/25/18, impression: "Limited study. Unremarkable MRI of the brain within the limitations of the study." Brain CT, impression: "No evidence of acute intracranial abnormality." Neck CT obtained on 01/20/18, impression: "There is posterior pharyngeal and prevertebral soft tissu e edema of the inferior oropharynx and supraglottic larynx. The differential includes postsurgical ed alfonso versus phlegmon. There is no loculated fluid collection to suggest abscess. Status post anterio r cervical fusion with subcutaneous emphysema consistent with the history of recent surgery." PHYSICAL EXAMINATION AT THE TIME OF DISCHARGE: Blood pressure is 128/67, heart rate of 42 and regula r, respiratory rate 16, oxygen saturation 97% on room air, temperature 97.6. General: The patient i s a very pleasant 42-year-old female who is in no acute distress. Alert, awake, and oriented x3. HE ENT: Head: Atraumatic, normocephalic. Eyes: Pupils are equal, reactive to light and accommodation. Oropharynx clear. Mucosa moist. Neck: Supple. No JVD. No bruits bilaterally. Cardiovascular: Regular rate and rhythm. No murmur. Respiratory: Clear to auscultation bilaterally. Abdomen: Soft , nontender. Bowel sounds are present in all 4 quadrants. Extremities: There is no edema. Pulses + 2 bilaterally. No clubbing or cyanosis. Neuro Evaluation: Speech is clear. Cranial nerves II throu gh XII grossly intact. Motor strength is 5/5 bilaterally. CONSULTATIONS: Please note that the consultants during the hospital staywere medicine service, rolo nunez, as well Dr. Dickerson from Neurology. Medicine service is discharging this patient today. I discussed with Dr. Liu who agrees. Please note that this is a short summary of the patient's hospitalization. Please refer to further m edical records for details. TIME SPENT: Approximately 40 minutes was spent on the patient's discharge. [id number]/[facility] #: [id number]
--- NOTE | 2018-01-26 15:39 | PN ---
Progress Note - Progress Note Date of Service: 01/26/18 SOAP: Subjective: []No events ON. Tolerates PO, no difficulty swallowing. No voice or breathing problems. No weakness, numbness or tingling of extremities. No ABBOTT. Objective: []VSS, Afebrile Wound soft, clean, dry. Trachea midline, No evidence of hematoma. Neck soft. AAOx3, TODD ,CN II-XII grossly intact Motor 5/5 all extremities Sensory grossly intact to light touch. Assessment: []42 yof POD#8 sp ACDF C4-5 Plan: []Monitor VS, Neurochecks HOB > 45' Encourage ambulation. Dc planning. Ok per IM for discharge. Steroid taper. Full instructions were given to patient. Follow up in office in 7 days. Appreciate IM, Neurology input. Prudencio Liu MD
--- NOTE | 2018-02-01 11:50 | DS ---
DATE OF ADMISSION: 01/17/2018. DATE OF DISCHARGE: 01/19/2018. ATTENDING PHYSICIAN: Dr. Liu (dictated by DAMIR Blackwell). DISCHARGE DIAGNOSES: 1. Degenerative disk disease and right herniated nucleus pulposus at C4-5. 2. Obesity. 3. Migraines. SPECIAL PROCEDURE: Anterior cervical diskectomy and fusion at C4-5. HOSPITAL COURSE: This is a 42-year-old female was seen in our office with a right sided cervical rad iculopathy consistent with MRI findings of C4-5 herniated disk and degenerative disk disease. She fa iled to improve with chiropractic manipulation, physical therapy, and deep tissue massage. She was r eferred to Dr. Liu for surgical consultation and elected to proceed with surgery. On the day of admission, she was taken to surgery where under general anesthesia an anterior cervical diskectomy and fusion of C4-5 operation was carried out. Postoperatively in the Post Anesthesia Care Unit, she experienced episodes of oxygen desaturation and was therefore transported to the Short Stay Unit afte r adequate recovery with oxygen via nasal cannula in place. She required oxygen overnight as well. On the first postoperative day, she was feeling well, although tired. She complained of incisional n chris pain and posterior neck soreness. The pain was controlled with oral pain medications. While try ing to wean off of the oxygen, she continued to have episodes of desaturation and therefore required further evaluation. On the second night, she was evaluated with an overnight oxygen saturation study which revealed several minutes of oxygen saturation down into the 80s. On the second postoperative day, she continued to have neck pain and soreness, although not well managed with oral medications. The Hospitalist consult had arranged for the oxygen study overnight; also helped to arrange home oxyg en for the patient. She was eating, drinking, and voiding without difficulty. She was ambulating in dependently. She continued to wear the Sutton J collar at all times. On the second postoperative day, she was discharged home to the care of her family. DISCHARGE MEDICATION: Guinda 5/325 mg one to two tabs by mouth every 4 hours as needed for pain. She was also discharged home with oxygen to be provided through [facility]. This will be arranged prior to her discharge. She will be seen in the office next week for follow-up with Dr. Liu. Wound care and activity levels were discussed with the patient and she is to wear the Sutton J collar at all times. DAMIR BLACKWELL [id number]/[facility] #: [id number]
== END 2018-01-26 12:45 | disposition home or self-care (01) | DRG 58 ==
LOC: ED 18:17 → SSU 01-21 00:09 → OBSVTOIN 01-21 09:09 → ICU 01-24 12:57 → SSU 01-24 23:33
PROVIDERS: ADMIT Neurological Surgery; ATTEND Internal Medicine
DX: G97.82 Other postprocedural complications and disorders of nervous system (principal); I67.4 Hypertensive encephalopathy; J80 Acute respiratory distress syndrome; E66.2 Morbid (severe) obesity with alveolar hypoventilation; Z68.42 Body mass index [BMI] 45.0-49.9, adult; J38.4 Edema of larynx; I16.0 Hypertensive urgency; G43.909 Migraine, unspecified, not intractable, without status migrainosus; L40.9 Psoriasis, unspecified; F41.8 Other specified anxiety disorders; Z79.1 Long term (current) use of non-steroidal anti-inflammatories (NSAID); Z79.899 Other long term (current) drug therapy; Z88.8 Allergy status to other drugs, medicaments and biological substances; Z80.1 Family history of malignant neoplasm of trachea, bronchus and lung
CPT/HCPCS: 36415; 70450; 70491; 70551; 72020; 80053; 81003; 83605; 85025; 85652; 86140; 86308; 87040; 87502; 87651; 94762; 99284; A9270-GY; G8996-GN-CJ; G8997-GN-CH; G8998-GN-CH; J0360; J1100; J1200; J2930; J3370; J8540; Q9967

== ENCOUNTER 2018-07-03 12:38 | Emergency (ER) | payer BC, OTHER ==
[2018-07-03 13:03] VITALS: BP 134/79
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
== END 2018-07-03 14:58 | disposition home or self-care (01) ==
LOC: UCEAST 12:38
DX: S16.1XXA Strain of muscle, fascia and tendon at neck level, initial encounter (principal); I10 Essential (primary) hypertension; Z88.1 Allergy status to other antibiotic agents; Z88.5 Allergy status to narcotic agent; Z79.899 Other long term (current) drug therapy; V89.2XXA Person injured in unspecified motor-vehicle accident, traffic, initial encounter; Y92.9 Unspecified place or not applicable
CPT/HCPCS: 72020; 72050; 99211; G0463

== ENCOUNTER 2018-07-09 18:42 | Emergency (ER) | payer OTHER ==
--- NOTE | 2018-07-09 20:44 | RAD ---
EXAM: CT Cervical Spine Without Intravenous Contrast EXAM DATE/TIME: 07/09/2018 8:13 PM CLINICAL HISTORY: 42 years old, female; Pain; Cervicalgia; Prior surgery; Surgery date: 6+ months; Additional info: Neck pain TECHNIQUE: Axial computed tomography images of the cervical spine without intravenous contrast. All CT scans at this facility use at least one of these dose optimization techniques: automated exposure control; mA and/or kV adjustment per patient size (includes targeted exams where dose is matched to clinical indication); or iterative reconstruction. Coronal and sagittal reformatted images were created and reviewed. COMPARISON: DX CSP SP CERVICAL 4+VWS 07/03/2018 2:13 PM FINDINGS: Vertebrae: Straightened cervical lordosis without spondylolisthesis. Patient post anterior fusion and discectomy C4-C5. The craniocervical junction and atlantoaxial articulation are symmetric and normal. No fractures. Vertebral body heights are maintained. Disc/neural foramina: C2-C3:There is no significant disc space narrowing. No canal stenosis or foraminal narrowing. The facet joints are normal. C3-C4:There is no significant disc space narrowing. No canal stenosis or foraminal narrowing. The facet joints are normal. C4-C5: Anterior fusion and discectomy. No canal stenosis or foraminal narrowing. The facet joints are normal. C5-C6:There is no significant disc space narrowing. No canal stenosis or foraminal narrowing. The facet joints are normal. C6-C7:There is no significant disc space narrowing. No canal stenosis or foraminal narrowing. The facet joints are normal. C7-T1:There is no significant disc space narrowing. No canal stenosis or foraminal narrowing. The facet joints are normal. Soft tissues: Normal. Lung apices: Normal. IMPRESSION: No CT findings to correlate with patient's symptomatology. Normal appearance of patient's C4-C5 anterior fusion and discectomy. To contact [facility] with a general question: [facility] - [phone] For direct physician to physician contact: Physician Hotline - [phone] [facility] ([facility] Facility ID #[id number])
--- NOTE | 2018-07-09 20:59 | ED ---
Neck Pain - HPI Summary HPI Summary: 42 year old female presents with neck pain since in [place] on the . She states that she was sent here by dr liu for imaging. He recommends a CT of her neck and the flexion and extension x-ray. She states the pain is in a similar location as she had before she had surgery in december. She denies any weakness. No numbness or tingling to her arms. States she gets occasional pain into her right arm. No lower back pain. No fevers. Her pain has been mostly under control with her pain medication. - History of Current Complaint Chief Complaint: EDNeckComplaint Stated Complaint: NECK PAIN Time Seen by Provider: 07/09/18 20:02 Hx Last Menstrual Period: currently Pain Intensity: 5 - Allergies/Home Medications Allergies/Adverse Reactions: Allergies Allergy/AdvReac Type Severity Reaction Status Date / Time erythromycin base Allergy Vomiting Verified 07/09/18 19:13 hydromorphone Allergy Unknown Verified 07/09/18 19:13 Reaction Details PMH/Surg Hx/FS Hx/Imm Hx Endocrine/Hematology History: Reports: Other Endocrine/Hematological Disorders - morbid obesity Denies: Hx Anticoagulant Therapy, Hx Blood Disorders, Hx Diabetes, Hx Thyroid Disease Cardiovascular History: Denies: Hx Hypertension, Hx Pacemaker/ICD Respiratory History: Denies: Hx Asthma, Hx Chronic Obstructive Pulmonary Disease (COPD) GI History: Reports: Hx Gall Bladder Disease - removed Denies: Hx Ulcer History: Denies: Hx Renal Disease Sensory History: Reports: Hx Contacts or Glasses - GLASSES Denies: Hx Hearing Aid Opthamlomology History: Reports: Hx Contacts or Glasses - GLASSES Neurological History: Reports: Hx Migraine - TAKES ATENOLOL FOR - STATES RARELY HAS NOW Denies: Hx Headaches Psychiatric History: Reports: Hx Anxiety Denies: Hx Panic Disorder - Surgical History Surgery Procedure, Year, and Place: CHOLECYSTECTOMY 2012,. SINUS SURGERY. ACDF surg 01/17/18 - cervical fusion Hx Anesthesia Reactions: Yes - HYDROMORPHONE - Immunization History Immunizations Up to Date: Yes Infectious Disease History: No Infectious Disease History: Denies: Hx Clostridium Difficile, Hx Hepatitis, Hx Human Immunodeficiency Virus (HIV), Hx of Known/Suspected MRSA, Hx Shingles, Hx Tuberculosis, Hx Known/ Suspected VRE, Hx Known/Suspected VRSA, History Other Infectious Disease, Traveled Outside the [place] in Last 30 Days - Family History Known Family History: Positive: None, Hypertension, Other - cancer Negative: Diabetes, Renal Disease - Social History Alcohol Use: Rare Hx Substance Use: No Substance Use Type: Reports: None Hx Tobacco Use: No Smoking Status (MU): Never Smoked Tobacco Have You Smoked in the Last Year: No Review of Systems Negative: Fever Negative: Chest Pain Negative: Shortness Of Breath Positive: Myalgia - neck pain All Other Systems Reviewed And Are Negative: Yes Physical Exam Triage Information Reviewed: Yes Vital Signs On Initial Exam: Initial Vitals Temp Pulse Resp BP Pulse Ox 98.2 F 57 20 141/84 96 07/09/18 19:07 07/09/18 19:07 07/09/18 19:07 07/09/18 19:07 07/09/18 19:07 Vital Signs Reviewed: Yes Appearance: Positive: Well-Appearing Skin: Positive: Warm, Dry Head/Face: Positive: Normal Head/Face Inspection Eyes: Positive: Normal, Conjunctiva Clear ENT: Positive: Pharynx normal Neck: Positive: Other: - tenderness midline neck, full ROM Respiratory/Lung Sounds: Positive: Clear to Auscultation, Breath Sounds Present Cardiovascular: Positive: Normal, RRR Musculoskeletal: Positive: Strength/ROM Intact - neck, Other - good upper arm strength, sensation grossly intact, good logging superintendent strength, capillary refill<2secs Neurological: Positive: Normal Psychiatric: Positive: Normal Diagnostics - Vital Signs Vital Signs Temp Pulse Resp BP Pulse Ox 07/09/18 19:07 98.2 F 57 20 141/84 96 - Laboratory Lab Statement: Any lab studies that have been ordered have been reviewed, and results considered in the medical decision making process. - Radiology neck Xray Interpretation: No Acute Changes Radiology Interpretation Completed By: ED Physician Neck Course/Dx - Course Course Of Treatment: 42 year old female presents with neck pain since in [facility] on the . She states that she was sent here by dr liu for imaging. He recommends a CT of her neck and the flexion and extension x-ray. She states the pain is in a similar location as she had before she had surgery in december. She denies any weakness. No numbness or tingling to her arms. States she gets occasional pain into her right arm. No lower back pain. No fevers. Her pain has been mostly under control with her pain medication. on exam has tenderness neck. full ROM neck. neurovascular intact. CT neck normal. will have follow up with neurosurgery as needed. patient understand and agrees with plan. - Diagnoses Differential Dx/HQI/PQRI: Positive: Cervical Fracture, Sprain, Strain Provider Diagnoses: Neck pain Discharge - Sign-Out/Discharge Documenting (check all that apply): Patient Departure - Discharge Plan Condition: Good Disposition: HOME Patient Education Materials: Neck Pain (ED) Referrals: Cande POTTER,Shea Curtis [Primary Care Provider] - Meche Liu MD [Medical Doctor] - Additional Instructions: Follow up with neurosurgery as needed Take normal pain medication Return to ED if develop any new or worsening symptoms - Billing Disposition and Condition Condition: GOOD Disposition: Home
[2018-07-09 21:20] VITALS: BP 112/84
--- NOTE | 2018-07-10 08:17 | RAD ---
HISTORY: need flexion and extension xray COMPARISONS: July 03, 2018 at 2:15 PM VIEWS: 3 , lateral neutral, lateral flexion, lateral extension views of the cervical spine FINDINGS: The cervical spine is visualized from the skull base through C7 . ALIGNMENT: There is straightening of the cervical lordosis. The alignment through C7 is otherwise normal. There is no subluxation with flexion and extension. There is minimal excursion with flexion and extension. VERTEBRAL BODIES: The patient is status post intracervical fusion C4-C5. There is no appreciable hardware failure or osteolysis. JOINTS: There is no subluxation or dislocation. The facet joints are unremarkable. INTERVERTEBRAL DISCS: Intervertebral graft material is noted at C4-C5. SOFT TISSUE: The prevertebral soft tissues are normal. OTHER: The skull base is normal. The lung apices are clear. IMPRESSION: 1. STATUS POST ANTERIOR CERVICAL FUSION. 2. STRAIGHTENING OF THE CERVICAL LORDOSIS. 3. NO SUBLUXATION WITH FLEXION AND EXTENSION. MINIMAL EXCURSION WITH FLEXION AND EXTENSION. R0
== END 2018-07-09 21:15 | disposition home or self-care (01) ==
LOC: ED 18:42
DX: M54.2 Cervicalgia (principal); Z88.3 Allergy status to other anti-infective agents; Z88.5 Allergy status to narcotic agent
CPT/HCPCS: 72040; 72125; 99282

== ENCOUNTER 2018-11-28 09:52 | Emergency (ER) | payer BC ==
[2018-11-28 10:13] VITALS: BP 124/79
--- NOTE | 2018-11-28 11:18 | UC ---
FLU HPI - HPI Summary HPI Summary: 3 days of feeling ill, occasional fatigue, sore throat, lump in throat. - History of Current Complaint Chief Complaint: UCGeneralIllness Stated Complaint: SORE THROAT Time Seen by Provider: 11/28/18 10:39 Hx Obtained From: Patient Hx Last Menstrual Period: 11/06/18 Pain Intensity: 8 Pain Scale Used: 0-10 Numeric - Allergy/Home Medications Allergies/Adverse Reactions: Allergies Allergy/AdvReac Type Severity Reaction Status Date / Time erythromycin base Allergy Vomiting Verified 11/28/18 10:05 hydromorphone Allergy Unknown Verified 11/28/18 10:05 Reaction Details PMH/Surg Hx/FS Hx/Imm Hx Previously Healthy: Yes Cardiovascular History: Hypertension Other History Of: Negative For: Anticoagulant Therapy - Surgical History Surgical History: Yes Surgery Procedure, Year, and Place: CHOLECYSTECTOMY 2011,. SINUS SURGERY. ACDF surg 01/17/18 - cervical fusion - Family History Known Family History: Positive: None, Hypertension, Other - cancer Negative: Diabetes, Renal Disease - Social History Alcohol Use: None Substance Use Type: None Smoking Status (MU): Never Smoked Tobacco Have You Smoked in the Last Year: No - Immunization History Most Recent Influenza Vaccination: Pt unsure Most Recent Pneumonia Vaccination: HAS NOT HAD Review of Systems All Other Systems Reviewed And Are Negative: Yes Constitutional: Positive: Chills, Fatigue. Negative: Fever Skin: Negative: Rash ENT: Positive: Sore Throat, Nasal Discharge, Sinus Congestion. Negative: Ear Ache, Sinus Pain/Tenderness Respiratory: Negative: Shortness Of Breath, Cough Cardiovascular: Positive: Negative Gastrointestinal: Positive: Nausea. Negative: Vomiting, Diarrhea Neurological: Negative: Headache Physical Exam Triage Information Reviewed: Yes Appearance: Well-Appearing Vital Signs: Initial Vital Signs Temp 98.3 F 11/28/18 10:06 Pulse 65 11/28/18 10:06 Resp 16 11/28/18 10:06 BP 124/79 11/28/18 10:06 Pulse Ox 100 11/28/18 10:06 Vital Signs Reviewed: Yes Eyes: Positive: Conjunctiva Clear ENT: Positive: Pharyngeal erythema, TMs normal, Uvula midline Neck: Positive: Supple, Nontender, No Lymphadenopathy. Negative: Nuchal Rigidity Respiratory Exam: Normal Cardiovascular Exam: Normal Neurological: Positive: Alert Skin: Negative: Rashes Flu Course/Dx - Course Course Of Treatment: Acute sore throat, body aches in a pt. who did get the flu shot this year. Afebrile/ Vitals unremarkable. Exam did show erythematous throat. rapid strep neg. supportive care recommended. - Differential Dx/Diagnosis Differential Diagnosis/HQI/PQRI: Upper Respiratory Infection, Other Provider Diagnosis: Flu-like symptoms Discharge - Sign-Out/Discharge Documenting (check all that apply): Patient Departure All imaging exams completed and their final reports reviewed: No Studies - Discharge Plan Condition: Good Disposition: HOME Patient Education Materials: Pharyngitis (ED) Referrals: Cande POTTER,Shea Curtis [Primary Care Provider] - Additional Instructions: If not improving after 5-7 days please follow up with your primary care. - Billing Disposition and Condition Condition: GOOD Disposition: Home - Attestation Statements Provider Attestation: I was available for consult. This patient was seen by the DOROTHY. The patient was not presented to, seen by, or examined by me. -Inocencia
== END 2018-11-28 11:40 | disposition home or self-care (01) ==
LOC: UCEAST 09:52
DX: R53.83 Other fatigue (principal); R22.1 Localized swelling, mass and lump, neck; J02.9 Acute pharyngitis, unspecified; I10 Essential (primary) hypertension; Z88.1 Allergy status to other antibiotic agents; Z88.5 Allergy status to narcotic agent
CPT/HCPCS: 87651; 99211; G0463

== ENCOUNTER 2019-05-05 20:35 | Emergency (ER) | payer BC ==
--- OUTSIDE RECORDS SUMMARY | 2019-05-05 20:44 | XMS REPORT | Continuity of Care Document ---
:1975 External Reference #:[id number] Author Name RuffNata Care Team Providers Name Role Phone Shea Castellon PA Primary Care Physician Unavailable Payers Date Identification Numbers Payment Provider Subscriber Effective: 2018 Policy Number: [id number] [employer] Milena Hoang PayID: [id number] [address] [address] [place] [address] Problems Active Problems Provider Date Neck pain Meche Liu MD Onset: 12/28/2017 Cervical disc disorder Meche Liu MD Onset: 12/28/2017 Obesity Meche Liu MD Onset: 12/28/2017 Family History Date Family Member(s) Observation Comments General Cancer Siblings 2 Social History Type Date Description Comments Sex Unknown Marital Status Single Lives With Son Occupation Currently Working 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 ETOH Use Denies alcohol use Tobacco Use Start: Unknown Patient has never smoked Recreational Drug Use Never Used Drugs Smoking Status Reviewed: 04/30/19 Patient has never smoked Exercise Type/Frequency Does not exercise Allergies, Adverse Reactions, Alerts Active Allergies Reaction Severity Comments Date Erythromycin 10/23/2017 Pain Med Given At Hospital/Does Not Know Name 12/28/2017 Hydromorphone Severe 01/03/2018 Dilaudid Severe 01/10/2018 Medications Active Medications SIG Qnty Indications Ordering Provider Date Atenolol 1 by mouth every Unknown 50mg Tablets day Ibuprofen by mouth three Unknown 800mg Tablets times a day as needed History Medications Medrol take as directed 21tabs M54.12 David F 10/23/2017 - 4mg Tablets per dosepak MD [place] 12/28/2017 instructions Citalopram 1 by mouth every Unknown - Hydrobromide day 01/18/2018 20mg Tablets Citalopram 1 by mouth every 30tabs [place] - Hydrobromide day MD Bird 04/08/2019 40mg Tablets Amlodipine Besylate 1 by mouth every Unknown - day 04/08/2019 10mg Tablets Furosemide prn Unknown - 04/16/2019 Vital Signs Date Vital Result Comment 04/30/2019 9:45am Height 65 inches 5'5" Weight 295.00 lb Heart Rate 56 /min BP Systolic Sitting 144 mmHg Lue large cuff BP Diastolic Sitting 82 mmHg Lue large cuff Respiratory Rate 18 /min Pain Level 5 BMI (Body Mass Index) 49.1 kg/m2 03/28/2019 10:33am Height 65 inches 5'5" Weight 295.00 lb BP Systolic Sitting 110 mmHg BP Diastolic Sitting 70 mmHg Pain Level 6 BMI (Body Mass Index) 49.1 kg/m2 02/11/2019 9:01am Height 65 inches 5'5" Weight 295.00 lb BP Systolic Sitting 118 mmHg BP Diastolic Sitting 82 mmHg Pain Level 8 BMI (Body Mass Index) 49.1 kg/m2 08/13/2018 8:37am Height 65 inches 5'5" Weight 295.00 lb BP Systolic Sitting 104 mmHg BP Diastolic Sitting 70 mmHg Pain Level 3 BMI (Body Mass Index) 49.1 kg/m2 08/08/2018 2:20pm Height 65 inches 5'5" Weight 295.00 lb Heart Rate 68 /min BP Systolic 130 mmHg BP Diastolic 82 mmHg Respiratory Rate 16 /min Body Temperature 98.2 F BMI (Body Mass Index) 49.1 kg/m2 04/22/2018 1:13pm Height 65 inches 5'5" Weight 292.00 lb w/ shoes Heart Rate 66 /min BP Systolic Sitting 130 mmHg BP Diastolic Sitting 86 mmHg Respiratory Rate 16 /min Pain Level 0 BMI (Body Mass Index) 48.6 kg/m2 03/26/2018 11:30am Height 65 inches 5'5" Weight 296.25 lb Heart Rate 52 /min BP Systolic Sitting 110 mmHg BP Diastolic Sitting 76 mmHg Respiratory Rate 20 /min BMI (Body Mass Index) 49.3 kg/m2 03/11/2018 1:48pm Height 65 inches 5'5" Weight 297.00 lb Heart Rate 56 /min BP Systolic 120 mmHg BP Diastolic 78 mmHg Respiratory Rate 24 /min Pain Level 4 BMI (Body Mass Index) 49.4 kg/m2 02/06/2018 9:12am Height 65 inches 5'5" Weight 293.00 lb BP Systolic Sitting 140 mmHg lg cuff BP Diastolic Sitting 78 mmHg lg cuff Body Temperature 99.3 F Pain Level 3 BMI (Body Mass Index) 48.8 kg/m2 12/28/2017 10:59am Height 65 inches 5'5" Weight 293.00 lb Heart Rate 82 /min BP Systolic Sitting 122 mmHg lg BP Diastolic Sitting 84 mmHg lg Pain Level 6 BMI (Body Mass Index) 48.8 kg/m2 12/18/2017 3:11pm Height 65 inches 5'5" Heart Rate 62 /min BP Systolic 142 mmHg BP Diastolic 92 mmHg Respiratory Rate 16 /min Body Temperature 99.1 F Pain Level 9 10/23/2017 9:44am Height 65 inches 5'5" Weight 293.00 lb Heart Rate 81 /min Respiratory Rate 14 /min Body Temperature 98.6 F Pain Level 9 BMI (Body Mass Index) 48.8 kg/m2 Results Test Date Facility Test Result H/L Range Note Laboratory test 08/08/2018 [facility] Surgical SEE RESULT [address] [place] [address] [phone] CBC No Diff 01/10/2018 [facility] White Blood 9.1 10^3/uL Normal 3.5-10.[address] [place] [address] [phone] Red Blood Count 4.29 10^6/uL Normal 4.0-5.4 Hemoglobin 13.1 g/dL Normal 12.0-16.0 Hematocrit 38 % Normal 35-47 Mean Corpuscular Volume 90 fL Normal 80-97 Mean Corpuscular Hemoglobin 31 pg Normal 27-31 Mean Corpuscular HGB Conc 34 g/dL Normal 31-36 Red Cell Distribution Width 14 % Normal 10.5-15 Platelet Count 316 10^3/uL Normal 150-450 Mean Platelet Volume 7.7 um3 Normal 7.4-10.4 Inr/Protime 01/10/2018 [facility] Inr 0.91 Normal 0.77-1.[address] [place] [address] [phone] Laboratory test 01/10/2018 [facility] Partial 32.3 Normal 26.0 -36.[address] [facility] [address] [address] Time PTT [phone] Basic Metabolic 01/10/2018 [facility] Sodium 138 mmol/L Low 139-145 Panel [facility] [place] [address] [phone] Potassium 4.2 mmol/L Normal 3.5-5.0 Chloride 102 mmol/L Normal 101-111 Co2 Carbon Dioxide 30 mmol/L Normal 22-32 Anion Gap 6 mmol/L Normal 2-11 Glucose 121 mg/dL High 70-100 Blood Urea Nitrogen 15 mg/dL Normal 6-24 Creatinine 0.65 mg/dL Normal 0.51-0.95 BUN/Creatinine Ratio 23.1 High 8-20 Calcium 8.9 mg/dL Normal 8.6-10.3 Egfr Non- 99.5 >60 Egfr 127.9 >60 2 Laboratory 01/10/2018 [facility] TSH (Thyroid 2.60 Normal 0.34 -5.60 test finding [facility] DR[address] Stim Horm) mcIU/[place] [address] [phone] Type & Screen 01/10/2018 [facility] Patient A Positive [facility] [place] [address] [phone] Antibody Screen NEGATIVE Urine Culture And 01/10/2018 [facility] Urine Culture SEE RESULT [address] [place] [address] [phone] Urinalysis Profile 01/10/2018 [facility] Urine Color Yellow [facility] [place] [address] [phone] Urine Appearance Cloudy Urine Specific Kemp 1.021 Normal 1.010-1.030 Urine pH 5.0 Normal 5-9 Urine Urobilinogen Negative Negative Urine Ketones Negative Negative Urine Protein 1+(30 mg/dL) Abnormal Negative Urine Leukocytes Trace Abnormal Negative Urine Blood Negative Negative Urine Nitrite Negative Negative Urine Bilirubin Negative Negative Urine Glucose Negative Negative Urine White Blood Cell 1+(6-10/hpf) Abnormal Absent Urine Red Blood Cell 2+(6-10/hpf) Abnormal Absent Urine Bacteria Absent Absent Urine Squamous Epithelial Cell Present Abnormal Absent 1 SEE RESULT BELOW Name: MILENA HOANG : [address]: [place] MD Acct: [id number] Unit: [id number] AGE: 42 Location: [facility] Re08/08/18 SEX: F Status: REG REF SPEC: [id number] ARIADNA: 08/08/[address]: [place] MD REQ: [id number] RECD: 08/08/18 STATUS: SOUT _ ORDERED: LEVEL 4 COMMENTS: [id number] FINAL DIAGNOSIS Skin, left mandible, biopsy: -- Intradermal melanocytic nevus. -- Lesional cells extend to the biopsy base. CLINICAL HISTORY No history given GROSS DESCRIPTION The specimen is received in formalin labeled, Left Mandibular Skin Lesion, and consists of a 0.6 x 0.4 x 0.3 cm bower-white hairbearing nodular skin fragment, which is inked, trisected and entirely submitted in one cassette. Signed by and Reported on: Reyna Barriga MD 08/09/18 1209 END OF REPORT DEPARTMENT OF PATHOLOGY, [address] [place] [address] Mehul Lopez M.D. Director [facility] # [id number] 2 Because ethnic data is not always readily available, this report includes an eGFR for both -Americans and non- Americans. The National Kidney Disease Education Program (NKDEP) does not endorse the use of the MDRD equation for patients that are not between the ages of 18 and 70, are , have extremes of body size, muscle mass, or nutritional status, or are non- or non-. According to the National Kidney Foundation, irrespective of diagnosis, the stage of the disease is based on the level of kidney function: Stage Description GFR(mL/min/1.73 m(2)) 1 Kidney damage with normal or decreased GFR 90 2 Kidney damage with mild decrease in GFR 60-89 3 Moderate decrease in GFR 30-59 4 Severe decrease in GFR 15-29 5 Kidney failure <15 (or dialysis) 3 SEE RESULT BELOW Name: MILENA HOANG : [address]: Meche Liu MD Acct: [id number] Unit: [id number] AGE: 42 Location: [facility] Re01/10/18 SEX: F Status: REG REF SPEC: [id number] ARIADNA: 01/10/18-[address]: Meche Liu MD REQ: [id number] RECD: 01/10/18 STATUS: COMP _ SOURCE: URINE SPDESC: ORDERED: Urine Culture Procedure Result Reported Site Urine Culture Final 01/11/18- 1201 ML No growth of clinically significant organisms * ML - Main Lab . END OF REPORT DEPARTMENT OF PATHOLOGY, [address] [place] [id number] Mehul Lopez M.D. Director [facility] # [id number] Procedures Date Code Description Status 08/08/2018 00881 Biopsy Skin Lesion Single Completed 02/07/2018 12467 ECHO Transthoracic, Real-Time 2D With Doppler And Color Completed Flow 02/07/2018 98570 ECHO Transthoracic, Real-Time 2D With Doppler And Color Completed Flow 01/17/2018 60606 Insertion Interbody Biomechanical Device; Each Interspace Completed 01/17/2018 27439 Insertion Interbody Biomechanical Device; Each Interspace Completed 01/17/2018 20354 Anterior Instrumentation 2-3 Vertebral Segments Completed 01/17/2018 95532 Anterior Instrumentation 2-3 Vertebral Segments Completed 01/17/2018 05912 arthrodesis,anterior interbody incl disc space Completed prep,discectomy,de 01/17/2018 90107 arthrodesis,anterior interbody incl disc space Completed prep,discectomy,de 01/17/2018 75584 Autograft For Spine Surgery (Incls Harvesting The Graft) Completed 01/17/201847004 Allograft For Spine Surgery, Morselized Completed Encounters Type Date Location Provider Dx Diagnosis Office Visit 03/28/2019 Neurosurgery Ashley Kurtz, M54.12 Radiculopathy, 10:30a [facility] cervical region Office Visit 02/11/2019 Neurosurgery Vassilios M50.121 Cervical disc 9:00a [facility] Liu MD disorder at C4-C5 level with radiculopathy Z48.89 Encounter for other specified surgical aftercare Office Visit 08/13/2018 Neuro[facility] [place] Z48.89 Encounter for 8:30a [facility] Liu MD other specified surgical aftercare Office Visit 08/08/2018 Surgical [place], D22.9 Melanocytic nevi, 2:15p [facility] FACS unspecified Office Visit 04/22/2018 Neuro[facility] [place] Z48.89 Encounter for 1:30p [facility] Liu MD other specified surgical aftercare Office Visit 03/26/2018 [facility] Sean Sandoval G43.009 Migraine w/o 11:30a [facility] H[facility]er M.D. aura, not intractable, w/o status migrainosus Office Visit 01/26/2018 [facility] [place], I16.1 Hypertensive 10:15a john Caceres M.D. emergency Hospitalists E66.2 Morbid (severe) obesity with alveolar hypoventilation Z98.890 Other specified postprocedural states Office Visit 01/25/2018 [facility] [place], I16.1 Hypertensive 10:14a john Caceres M.D. emergency Hospitalists E66.2 Morbid (severe) obesity with alveolar hypoventilation Z98.890 Other specified postprocedural states Office 01/24/2018 Neurohospitalist Terra Dickerson, I67.4 Hypertensive Visit 7:00a Clinic MD encephalopathy Office 01/24/2018 [facility] Little I16.1 Hypertensive Visit 10:12a john Caceres M.D. emergency E66.2 Morbid (severe) obesity with alveolar hypoventilation Z98.890 Other specified postprocedural states Office Visit 01/22/2018 [facility] Little E66.2 Morbid (severe) 10:11a john Caceres M.D. obesity with Hospitalists alveolar hypoventilation Z98.890 Other specified postprocedural states Office Visit 01/21/2018 [facility] Little E66.2 Morbid (severe) 10:10a john Caceres M.D. obesity with Hospitalists alveolar hypoventilation Z98.890 Other specified postprocedural states Office Visit 01/19/2018 [facility] Linh Ballard G43.909 Migraine, unsp, 9:43a Assjohn rodriguez NP not intractable, Hospitalists without status migrainosus F41.9 Anxiety disorder, unspecified R09.02 Hypoxemia Z98.890 Other specified postprocedural states Office Visit 01/18/2018 [facility] Radha G43.909 Migraine, unsp, 9:42a john Caceres NP not intractable, Hospitalists without status migrainosus F41.9 Anxiety disorder, unspecified R09.02 Hypoxemia Z98.890 Other specified postprocedural states Office 12/28/2017 Neurosurgery V[place] M50.121 Cervical disc Visit 11:30a [facility] Liu MD disorder at C4-C5 level with radiculopathy E66.8 Other obesity Office Visit 12/18/2017 Orthopedic David Minnie M54.12 Radiculopathy, 3:00p [facility] [place] cervical region C.M.A. Office Visit 10/23/2017 Orthopedic David Hartman M54.12 Radiculopathy, 9:00a [facility] [place] cervical region C.M.A. Plan of Treatment Future Appointment(s):07/11/2019 8:30 am - Meche Liu MD at [facility]04/30/2019 - Ashley Kurtz, PAM54.12 Radiculopathy, cervical regionFollow up:Follow up with Dr. Liu
[2019-05-05 20:47] VITALS: BP 192/97
--- NOTE | 2019-05-05 21:18 | UC ---
Dizzy HPI HPI Summary: Ms. Hoang presents complaining that intermittently in the last 2 weeks she has been having dizzy spells. She describes them as the feeling that she is going to faint. There is no spinning or motion sensation. These have been steadily worsening and this evening it is the worst that it's been. She denies chest pain or shortness of breath. She was on high blood pressure medication but stopped it herself. She has no ringing, roaring or buzzing. It is not aggravated by going from lying to sitting or standing. - History Of Current Complaint Chief Complaint: UCDizziness Stated Complaint: DIZZY, FAINT Time Seen by Provider: 05/05/19 21:08 Hx Last Menstrual Period: 05/05/2019 Pain Intensity: 0 - Allergies/Home Medications Allergies/Adverse Reactions: Allergies Allergy/AdvReac Type Severity Reaction Status Date / Time erythromycin base Allergy Vomiting Verified 11/28/18 10:05 hydromorphone Allergy Unknown Verified 11/28/18 10:05 Reaction Details PMH/Surg Hx/FS Hx/Imm Hx Cardiovascular History: Hypertension Psychological History: Depression Other History Of: Negative For: Anticoagulant Therapy - Surgical History Surgical History: Yes Surgery Procedure, Year, and Place: CHOLECYSTECTOMY 2011,. SINUS SURGERY. ACDF surg 01/17/18 - cervical fusion - Family History Known Family History: Positive: None, Hypertension, Other - cancer Negative: Diabetes, Renal Disease - Social History Alcohol Use: None Substance Use Type: None Smoking Status (MU): Never Smoked Tobacco Have You Smoked in the Last Year: No - Immunization History Most Recent Influenza Vaccination: Pt unsure Most Recent Pneumonia Vaccination: HAS NOT HAD Review of Systems All Other Systems Reviewed And Are Negative: Yes Constitutional: Positive: Negative Skin: Positive: Negative Eyes: Positive: Negative Respiratory: Positive: Negative Cardiovascular: Positive: Negative Gastrointestinal: Positive: Negative Motor: Positive: Negative Neurovascular: Positive: Negative Musculoskeletal: Positive: Negative Neurological: Positive: Other - Feeling like she is going to faint Psychological: Positive: Negative Physical Exam - Summary Physical Exam Summary: She was lying on the gurney looking distressed. She is not diaphoretic. She was bradycardic and hypertensive but not emergently so. Triage Information Reviewed: Yes Appearance: Ill-Appearing, Obese Vital Signs: Initial Vital Signs Temp 99.1 F 05/05/19 20:45 Pulse 56 05/05/19 20:45 Resp 16 05/05/19 20:45 BP 192/97 05/05/19 20:45 Pulse Ox 100 05/05/19 20:45 Vital Signs Reviewed: Yes Eye Exam: Normal ENT Exam: Normal Neck exam: Normal Respiratory Exam: Normal Cardiovascular: Positive: Murmur:Sys:Grade _?_/ Abdominal Exam: Normal Musculoskeletal Exam: Normal Neurological Exam: Normal Psychological Exam: Normal Dizzy Course/Dx - Course Course Of Treatment: I'm concerned for her. She feels like she is about to faint and although she is bradycardic her blood pressure is fine. She has an easy to hear systolic ejection murmur is not aware of any history of that. Her EKG just shows some diffuse T-wave flattening. I recommended that she go to the emergency department by ambulance. She was unwilling to do so but was willing to go to the emergency department. She had a friend here with her that was willing to drive her up there immediately. We discussed calling 911 if anything changed. - Differential Dx/Diagnosis Provider Diagnosis: Feeling faint Discharge - Sign-Out/Discharge Documenting (check all that apply): Patient Departure All imaging exams completed and their final reports reviewed: No Studies - Discharge Plan Condition: Guarded Disposition: HOME-RECOMMEND TO ED Referrals: Shea Castellon PA [Primary Care Provider] - Additional Instructions: Please go directly to the Emergency Department. If you start to feel worse, stop and call 911. - Billing Disposition and Condition Condition: GUARDED Disposition: Home-Recommend to ED
== END 2019-05-05 21:29 | disposition home health service (06) ==
LOC: UCEAST 20:35
DX: R42 Dizziness and giddiness (principal); I10 Essential (primary) hypertension; F32.9 Major depressive disorder, single episode, unspecified
CPT/HCPCS: 93005; 99212; G0463

== ENCOUNTER 2019-05-05 21:43 | Emergency (ER) | payer BC ==
[2019-05-05 22:33] LABS: ABS Eosinophils 0.1 10^3/ul (0-0.6); ABS Lymphocytes 2.4 10^3/ul (1.0-4.8); ABS Monocytes 0.7 10^3/ul (0-0.8); ABS Neutrophils 5.6 10^3/ul (1.5-7.7); Eosinophil % 1.6 %; Hematocrit 40 % (35-47); Hemoglobin 13.9 g/dL (12.0-16.0); Lymphocyte % 27.6 %; Mean Corpuscular HGB Conc 35 g/dL (31-36); Mean Corpuscular Hemoglobin 30 pg (27-31); Mean Corpuscular Volume 87 fL (80-97); Mean Platelet Volume 7.7 fL (7.4-10.4); Platelet Count 294 10^3/uL (150-450); Red Blood Count 4.57 10^6 /uL (3.70-4.87); Red Cell Distribution Width 14 % (10-15); White Blood Count 8.9 10^3/uL (3.5-10.8)
[2019-05-05 22:50] LABS: ALT 19 U/L (7-52); AST 14 U/L (13-39); Albumin 4.4 g/dL (3.2-5.2); Albumin/Globulin Ratio 1.3 (1-3); Alkaline Phosphatase 61 U/L (34-104); Anion Gap 6 mmol/L (2-11); BUN/Creatinine Ratio 15.9 (8-20); Blood Urea Nitrogen 13 mg/dL (6-24); CO2 Carbon Dioxide 29 mmol/L (22-32); Chloride 104 mmol/L (101-111); EGFR African American 91.6 (>60); EGFR Non-African American 75.7 (>60); Globulin 3.4 g/dL (2-4); Glucose 135 mg/dL (70-100); Magnesium 1.9 mg/dL (1.9-2.7); Sodium 139 mmol/L (135-145); Total Protein 7.8 g/dL (6.4-8.9)
[2019-05-05 23:12] LABS: TSH (Thyroid Stimulating Horm) 1.54 mcIU/mL (0.34-5.60)
--- NOTE | 2019-05-06 01:53 | ED ---
Dizziness - HPI Summary HPI Summary: Pt is a 43 y/o F presenting to the ED with a chief complaint of dizziness initially onset 2 weeks ago. She stopped taking her Amlodipine as well as her Citalopram, and she has been experiencing intermittent dizziness characterized as feeling faint and lightheaded. She reports slight nausea and feeling hot across her chest. She denies coffee ground emesis, vaginal bleeding, hematuria, dysuria, LE edema, SOB, hx of vertigo, changes in vision, changes in speech, rhinorrhea, sore throat, or cough. Moving her head/eyes worsens her sx. - History Of Current Complaint Chief Complaint: EDDizziness Stated Complaint: FAINT PER PT Time Seen by Provider: 05/06/19 00:33 Hx Obtained From: Patient Timing: Hours Severity Initially: Moderate Severity Currently: Moderate Character: Lightheaded, Dizzy Aggravating Factor(s): Change In Head Position Alleviating Factor(s): Nothing Associated Signs And Symptoms: Positive: Nausea, Change In Medication. Negative : Vomiting, SOB, Visual Changes, Slurred Speech - Allergies/Home Medications Allergies/Adverse Reactions: Allergies Allergy/AdvReac Type Severity Reaction Status Date / Time erythromycin base Allergy Vomiting Verified 05/05/19 21:48 hydromorphone Allergy Unknown Verified 05/05/19 21:48 Reaction Details PMH/Surg Hx/FS Hx/Imm Hx Previously Healthy: Yes Endocrine/Hematology History: Reports: Other Endocrine/Hematological Disorders - morbid obesity Denies: Hx Anticoagulant Therapy, Hx Blood Disorders, Hx Diabetes, Hx Thyroid Disease Cardiovascular History: Reports: Hx Hypertension Denies: Hx Pacemaker/ICD Respiratory History: Denies: Hx Asthma, Hx Chronic Obstructive Pulmonary Disease (COPD) GI History: Reports: Hx Gall Bladder Disease - removed Denies: Hx Ulcer History: Denies: Hx Renal Disease Musculoskeletal History: Denies: Hx Scoliosis Sensory History: Reports: Hx Contacts or Glasses - GLASSES Denies: Hx Hearing Aid Opthamlomology History: Reports: Hx Contacts or Glasses - GLASSES Neurological History: Reports: Hx Migraine - TAKES ATENOLOL FOR - STATES RARELY HAS NOW Denies: Hx Headaches Psychiatric History: Reports: Hx Anxiety Denies: Hx Panic Disorder - Surgical History Surgery Procedure, Year, and Place: CHOLECYSTECTOMY 2011,. SINUS SURGERY. ACDF surg 01/17/18 - cervical fusion Hx Anesthesia Reactions: Yes - HYDROMORPHONE Infectious Disease History: No Infectious Disease History: Denies: Hx Clostridium Difficile, Hx Hepatitis, Hx Human Immunodeficiency Virus (HIV), Hx of Known/Suspected MRSA, Hx Shingles, Hx Tuberculosis, Hx Known/ Suspected VRE, Hx Known/Suspected VRSA, History Other Infectious Disease, Traveled Outside the [place] in Last 30 Days - Family History Known Family History: Positive: Hypertension, Other - cancer Negative: Diabetes, Renal Disease - Social History Alcohol Use: None Hx Substance Use: No Substance Use Type: Reports: None Hx Tobacco Use: No Smoking Status (MU): Never Smoked Tobacco Have You Smoked in the Last Year: No Review of Systems Positive: Other - burning across chest Eyes: Negative Negative: Sore Throat, Nasal Discharge Negative: Shortness Of Breath, Cough Positive: Nausea. Negative: Vomiting Negative: dysuria, hematuria, other - vaginal bleeding Negative: Edema Neurological: Other - dizziness, lightheadedness Negative: Slurred Speech All Other Systems Reviewed And Are Negative: Yes Physical Exam - Summary Physical Exam Summary: Constitutional: Well-developed, Well-nourished, Alert. (-) Distressed Skin: Warm, Dry HENT: Normocephalic; Atraumatic Eyes: Conjunctiva normal Neck: Musculoskeletal ROM normal neck. (-) JVD, (-) Stridor, (-) Tracheal deviation Cardio: Rhythm regular, rate normal, Heart sounds normal; Intact distal pulses; The pedal pulses are 2+ and symmetric. Radial pulses are 2+ and symmetric. (-) Murmur Pulmonary/Chest wall: Effort normal. (-) Respiratory distress, (-) Wheezes, (-) Rales Abd: Soft, (-) tenderness, (-) Distension, (-) Guarding, (-) Rebound Musculoskeletal: (-) Edema Lymph: (-) Cervical adenopathy Neuro: Alert, Oriented x3, good sensation, strength, ROM. Cranial nerves intact. Psych: Mood and affect anxious Triage Information Reviewed: Yes Vital Signs On Initial Exam: Initial Vitals Temp Pulse Resp BP Pulse Ox 99.3 F 58 18 201/90 97 05/05/19 21:46 05/05/19 21:46 05/05/19 21:46 05/05/19 21:46 05/05/19 21:46 Vital Signs Reviewed: Yes Diagnostics - Vital Signs Vital Signs Temp Pulse Resp BP Pulse Ox 05/06/19 00:28 50 147/84 98 05/06/19 00:27 53 98 05/05/19 21:46 99.3 F 58 18 201/90 97 - Laboratory Lab Results: Lab Results 05/05/19 05/05/19 05/05/19 Range/Units 22:26 22:26 22:26 WBC 8.9 (3.5-10.8) 10^3/uL RBC 4.57 (3.70-4.87) 10^6 /uL Hgb 13.9 (12.0-16.0) g/dL Hct 40 (35-47) % MCV 87 (80-97) fL MCH 30 (27-31) pg MCHC 35 (31-36) g/dL RDW 14 (10-15) % Plt Count 294 (150-450) 10^3/uL MPV 7.7 (7.4-10.4) fL Neut % (Auto) 62.6 % Lymph % (Auto) 27.6 % [place] % (Auto) 7.7 % Eos % (Auto) 1.6 % Baso % (Auto) 0.5 % Absolute Neuts (auto) 5.6 (1.5-7.7) 10^3/ul Absolute Lymphs (auto) 2.4 (1.0-4.8) 10^3/ul Absolute Monos (auto) 0.7 (0-0.8) 10^3/ul Absolute Eos (auto) 0.1 (0-0.6) 10^3/ul Absolute Basos (auto) 0.0 (0-0.2) 10^3/ul Absolute Nucleated RBC 0.0 10^3/ul Nucleated RBC % 0.0 Sodium 139 (135-145) mmol/L Potassium 4.0 (3.5-5.0) mmol/L Chloride 104 (101-111) mmol/L Carbon Dioxide 29 (22-32) mmol/L Anion Gap 6 (2-11) mmol/L BUN 13 (6-24) mg/dL Creatinine 0.82 (0.51-0.95) mg/dL Est GFR ( Amer) 91.6 (>60) Est GFR (Non-Af Amer) 75.7 (>60) BUN/Creatinine Ratio 15.9 (8-20) Glucose 135 H (70-100) mg/dL Lactic Acid 1.2 (0.5-2.0) mmol/L Calcium 10.0 (8.6-10.3) mg/dL Magnesium 1.9 (1.9-2.7) mg/dL Total Bilirubin 0.40 (0.2-1.0) mg/dL AST 14 (13-39) U/L ALT 19 (7-52) U/L Alkaline Phosphatase 61 (34-104) U/L Troponin I 0.00 (<0.04) ng/mL Total Protein 7.8 (6.4-8.9) g/dL Albumin 4.4 (3.2-5.2) g/dL Globulin 3.4 (2-4) g/dL Albumin/Globulin Ratio 1.3 (1-3) TSH 1.54 (0.34-5.60) mcIU/mL Result Diagrams: 05/05/19 22:26 05/05/19 22:26 Lab Statement: Any lab studies that have been ordered have been reviewed, and results considered in the medical decision making process. Re-Evaluation - Re-Evaluation 1st re-eval Re-Evaluation Time: 02:15 Change: Improved Comment: Pt is agreeable with going home, Dizzy Course/Dx - Course Course Of Treatment: Pt is a 43 y/o F presenting to the ED with a chief complaint of dizziness initially onset 2 weeks ago. She stopped taking her Amlodipine as well as her Citalopram, and she has been experiencing intermittent dizziness characterized as feeling faint and lightheaded. She reports slight nausea and feeling hot across her chest. She denies coffee ground emesis, vaginal bleeding, hematuria, dysuria, LE edema, SOB, hx of vertigo, changes in vision, changes in speech, rhinorrhea, sore throat, or cough. Moving her head/eyes worsens her sx. Pt is anxious on physical exam. EKG at 2209 shows sinus bradycardia at 57bpm with normal NJ, normal QRS, normal QTc, normal axis, normal ST, normal T-waves, overall nonspecific EKG. The pt will be sent home with dx of medication withdrawal and dizziness, as well as instructions to follow up with her PCP. She is stable and agreeable with this plan. - Diagnoses Provider Diagnoses: Medication withdrawal, Dizziness Discharge - Sign-Out/Discharge Documenting (check all that apply): Patient Departure Patient Received Moderate/Deep Sedation with Procedure: No - Discharge Plan Condition: Stable Disposition: HOME Patient Education Materials: Dizziness (ED) Print Language: BURUNDIAN Referrals: Shea Castellon PA [Primary Care Provider] - Additional Instructions: Please follow up with your primary care provider within the next 2-3 days. Return to the emergency department with any new or worsening symptoms. - Billing Disposition and Condition Condition: STABLE Disposition: Home - Attestation Statements Document Initiated by Scribe: Yes Documenting Scribe: Rosalba Benítez Provider For Whom Anna is Documenting (Include Credential): Radha Suero MD. Scribe Attestation: IRosalba, josueed for Radha Steele MD. on 05/06/19 at 0520. Scribe Documentation Reviewed: Yes Provider Attestation: The documentation as recorded by the scribe, Rosalba Benítez accurately reflects the service I personally performed and the decisions made by me, Radha Steele MD. Status of Scribe Document: Viewed
[2019-05-06 02:27] LABS: Urine Appearance Clear; Urine Bacteria Absent (Absent); Urine Bilirubin Negative (Negative); Urine Blood 3+ (Negative); Urine Color Straw; Urine Glucose Negative (Negative); Urine Ketones Negative (Negative); Urine Nitrite Negative (Negative); Urine Protein Negative (Negative); Urine Red Blood Cell 3+(>10/hpf) (Absent); Urine Specific Gravity 1.009 (1.010-1.030); Urine Urobilinogen Negative (Negative); Urine White Blood Cell Absent (Absent)
[2019-05-06 02:39] VITALS: BP 139/90
== END 2019-05-06 02:37 | disposition home or self-care (01) ==
LOC: ED 21:43
DX: F19.939 Other psychoactive substance use, unspecified with withdrawal, unspecified (principal); R42 Dizziness and giddiness; R00.1 Bradycardia, unspecified; R11.0 Nausea; I10 Essential (primary) hypertension; G43.909 Migraine, unspecified, not intractable, without status migrainosus; Z88.1 Allergy status to other antibiotic agents; Z88.5 Allergy status to narcotic agent
CPT/HCPCS: 36415; 80053; 81003; 81015; 83605; 83735; 84443; 84484; 85025; 93005; 99283

== ENCOUNTER 2019-05-08 14:56 | Observation (INO) | payer BC ==
--- OUTSIDE RECORDS SUMMARY | 2019-05-08 15:09 | XMS REPORT | Continuity of Care Document ---
:1975 External Reference #:[id number] Author Name Shea Castellon PA (transmitted by agent of provider Hunter Li) Address [address] [place] [address] Care Team Providers Name Role Phone HCP/LW on file Care Team Information [employer] Unavailable Problems Active Problems Provider Date Psoriasis Shea Castellon PA Onset: 10/09/2017 Prolapsed cervical intervertebral disc Shea Castellon PA Onset: 12/25/2017 Essential hypertension Shea Castellon PA Onset: 01/30/2018 Migraine without aura, not refractory Shea Castellon PA Onset: 03/26/2018 Social History Type Date Description Comments Sex Unknown Tobacco Use Start: Unknown Denies Cigarette Use ETOH Use Occassional Alcohol Recreational Drug Use Denies Drug Use Tobacco Use Start: Unknown Non Smoker Smoking Status Reviewed: 01/08/18 Non Smoker Exercise Type/Frequency Does not exercise Sun Exposure Uses sunscreen Seat Belt/Car Seat Seat Belt Use - Yes Guns in Home No Smoke Alarms Yes smoke alarm Allergies, Adverse Reactions, Alerts Active Allergies Reaction Severity Comments Date Erythromycin 10/09/2017 Hydromorphone 05/06/2019 Medications Active Medications SIG Qnty Indications Ordering Provider Date Losartan Potassium take one tablet by 30tabs I10 Hunter Li, 2018 mouth every M.D. 50mg Tablets morning for high blood pressure Meclizine HCL 1 tab by mouth 90tabs R42 Hunter Li, 05/06/2019 25mg three times a day M.D. Tablets as needed dizziness Atenolol take one tablet by 30tabs G43.009 Unknown 04/15/2019 50mg Tablets mouth every morning for high blood pressure History Medications Methylprednisolone use as directed 1units M50.121 Guillermo, 03/27/2019 - 4mg TBPK on package Jewel Harrison 05/05/2019 Immunizations CPT Code Status Date Vaccine Lot # [id number] Given 01/08/2018 Td Immunization [id number] Vital Signs Date Vital Result Comment 05/06/2019 10:18am BP Systolic 146 mmHg BP Diastolic 86 mmHg Weight 283.00 lb 03/27/2019 11:31am BP Systolic 124 mmHg BP Diastolic 78 mmHg Weight 297.50 lb Results Test Date Facility Test Result H/L Range Note CBC Auto Diff 05/05/2019 [facility] White Blood 8.9 10^3/uL Normal 3.5-10.8 [phone] Count Red Blood Count 4.57 10^6/uL Normal 3.70-4.87 Hemoglobin 13.9 g/dL Normal 12.0-16.0 Hematocrit 40 % Normal 35-47 Mean Corpuscular Volume 87 fL Normal 80-97 Mean Corpuscular Hemoglobin 30 pg Normal 27-31 Mean Corpuscular HGB Conc 35 g/dL Normal 31-36 Red Cell Distribution Width 14 % Normal 10-15 Platelet Count 294 10^3/uL Normal 150-450 Mean Platelet Volume 7.7 fL Normal 7.4-10.4 Abs Neutrophils 5.6 10^3/uL Normal 1.5-7.7 Abs Lymphocytes 2.4 10^3/uL Normal 1.0-4.8 Abs Monocytes 0.7 10^3/uL Normal 0-0.8 Abs Eosinophils 0.1 10^3/uL Normal 0-0.6 Abs Basophils 0.0 10^3/uL Normal 0-0.2 Abs Nucleated RBC 0.0 10^3/uL Granulocyte % 62.6 % Lymphocyte % 27.6 % Monocyte % 7.7 % Eosinophil % 1.6 % Basophil % 0.5 % Nucleated Red Blood Cells % 0.0 Laboratory test 05/05/2019 [facility] Lactic Acid 1.2 mmol/L Normal 0.5-2.0 1 finding [phone] Comp Metabolic 05/05/2019 [facility] Sodium 139 mmol/L Normal 135- 145 Panel [phone] Potassium 4.0 mmol/L Normal 3.5-5.0 Chloride 104 mmol/L Normal 101-111 Co2 Carbon Dioxide 29 mmol/L Normal 22-32 Anion Gap 6 mmol/L Normal 2-11 Glucose 135 mg/dL High 70-100 Blood Urea Nitrogen 13 mg/dL Normal 6-24 Creatinine 0.82 mg/dL Normal 0.51-0.95 BUN/Creatinine Ratio 15.9 Normal 8-20 Calcium 10.0 mg/dL Normal 8.6-10.3 Total Protein 7.8 g/dL Normal 6.4-8.9 Albumin 4.4 g/dL Normal 3.2-5.2 Globulin 3.4 g/dL Normal 2-4 Albumin/Globulin Ratio 1.3 Normal 1-3 Total Bilirubin 0.40 mg/dL Normal 0.2-1.0 Alkaline Phosphatase 61 U/L Normal 34-104 Alt 19 U/L Normal 7-52 Ast 14 U/L Normal 13-39 Egfr Non- 75.7 >60 Egfr 91.6 >60 2 Laboratory test 05/05/2019 [facility] Magnesium 1.9 mg/dL Normal 1.9- 2.7 finding [phone] Troponin-I (TnI) 0.00 ng/mL <0.04 3 TSH (Thyroid Stim Horm) 1.54 mcIU/mL Normal 0.34-5.60 Urinalysis Profile 05/05/2019 [facility] Urine Color Straw [phone] Urine Appearance Clear Urine Specific [place] 1.009 Low 1.010-1.030 Urine pH 6.0 Normal 5-9 Urine Urobilinogen Negative Negative Urine Ketones Negative Negative Urine Protein Negative Negative Urine Leukocytes Negative Negative Urine Blood 3+ Abnormal Negative Urine Nitrite Negative Negative Urine Bilirubin Negative Negative Urine Glucose Negative Negative Urine White Blood Cell Absent Absent Urine Red Blood Cell 3+(>10/hpf) Abnormal Absent Urine Bacteria Absent Absent CBC Auto Diff 12/25/2018 [facility] White Blood 10.2 10^3/uL Normal 3.5-10.8 [phone] Count Red Blood Count 4.62 10^6/uL Normal 3.70-4.87 Hemoglobin 13.4 g/dL Normal 12.0-16.0 Hematocrit 40 % Normal 33-41 Mean Corpuscular Volume 87 fL Normal 80-97 Mean Corpuscular Hemoglobin 29 pg Normal 27-31 Mean Corpuscular HGB Conc 33 g/dL Normal 31-36 Red Cell Distribution Width 14 % Normal 10.5-15 Platelet Count 354 10^3/uL Normal 150-450 Mean Platelet Volume 7.7 fL Normal 7.4-10.4 Abs Neutrophils 6.7 10^3/uL Normal 1.5-7.7 Abs Lymphocytes 2.8 10^3/uL Normal 1.0-4.8 Abs Monocytes 0.5 10^3/uL Normal 0-0.8 Abs Eosinophils 0.1 10^3/uL Normal 0-0.6 Abs Basophils 0.1 10^3/uL Normal 0-0.2 Abs Nucleated RBC 0 10^3/uL Granulocyte % 65.4 % Lymphocyte % 27.1 % Monocyte % 5.4 % Eosinophil % 1.4 % Basophil % 0.7 % Nucleated Red Blood Cells % 0 Comp Metabolic Panel 12/25/2018 [facility] Sodium 137 mmol/L Normal 135-145 [phone] Potassium 4.3 mmol/L Normal 3.5-5.0 Chloride 101 mmol/L Normal 101-111 Co2 Carbon Dioxide 28 mmol/L Normal 22-32 Anion Gap 8 mmol/L Normal 2-11 Glucose 114 mg/dL High 70-100 Blood Urea Nitrogen 11 mg/dL Normal 6-24 Creatinine 0.65 mg/dL Normal 0.51-0.95 BUN/Creatinine Ratio 16.9 Normal 8-20 Calcium 8.8 mg/dL Normal 8.6-10.3 Total Protein 6.7 g/dL Normal 6.4-8.9 Albumin 4.0 g/dL Normal 3.2-5.2 Globulin 2.7 g/dL Normal 2-4 Albumin/Globulin Ratio 1.5 Normal 1-3 Total Bilirubin 0.30 mg/dL Normal 0.2-1.0 Alkaline Phosphatase 73 U/L Normal 34-104 Alt 12 U/L Normal 7-52 Ast 11 U/L Low 13-39 Egfr Non- 99.0 >60 Egfr 119.8 >60 4 CMV Igg/Igm 12/25/2018 [facility] Cytomegalovirus Positive Abnormal Negative 5 [phone] IgG Antibody Cytomegalovirus IgM Antibody Negative Negative Laboratory test 12/25/2018 [facility] Culture Throat SEE RESULT BELOW 6 finding [phone] Monospot Negative Negative 7 Zo Rainey 12/25/2018 [facility] Ebv Capsid Ag Positive Negative Comprehensive [phone] IgG Ab Ebv Capsid Ag IgM Ab Negative Negative Zo-Rainey Nuclear Antigen Positive Negative Zo-Rainey Virus Interp See Comment 8 Laboratory test 11/28/2018 [facility] Rapid Strep Negative Negative 9 finding [phone] Molecular 1 [facility] Severe Sepsis and Septic Shock Management Bundle Measure requires all lactic acids initially measuring >2.0 mmol/L be repeated. 2 Because ethnic data is not always [...] 5 Kidney failure <15 (or dialysis) 3 Verbal to [id number] by [id number] at 2353 on 05/05/19. Results read back accurately. RESULT IS 0.00 Result TnIDx:0.05 Called to [id number] at: 22:56:36 by:[id number] Read back by: [id number] CORRECTED REPORT --- Corrected on 05/05/19 2352 --- Troponin I previously reported as: 0.05 *C ng/mL Result TnIDx:0.05 Called to [id number] at: 22:56:36 by:[id number] Read back by: [id number] Troponin-I testing on Plasma Separator Tubes (PST) has a known false positive rate of 0.20-0.40%. All positive troponins reflex immediately to secondary confirmatory testing. Using the [employer] 800 Access Immunoassay systems, the 99th percentile upper reference limit was demonstrated to be < 0.03 ng/mL. 4 Because ethnic data is not always readily [...] 15-29 5 Kidney failure <15 (or dialysis) 5 Test Performed by: [facility] [employer] [address] [place] [address] 6 SEE RESULT BELOW Name: MILENA HOANG : [address]: Shea POTTER Acct: [id number] Unit: [id number] AGE: 43 Location: [facility] Re12/25/18 SEX: F Status: REG REF SPEC: [id number] ARIADNA: 12/25/[address]: Shea POTTER REQ: [id number] RECD: 12/25/18 STATUS: COMP _ SOURCE: THROAT SPDESC: ORDERED: Throat Culture Procedure Result Reported Site Throat Culture Final 12/27/18- 0900 ML Organism 1 NORMAL ELIANA Quantity 2+ Throat cultures are clinically indicated to detect the presence of group A strep, arcanobacterium and yeast. In certain cases, predominating organisms will be reported. * [facility] - Main Lab . END OF REPORT DEPARTMENT OF PATHOLOGY, [address] [place] [address] Mehul Lopez M.D. Director [facility] # [id number] 7 Would you like an EBV if Monospot is Negative?: Y 8 RESULT: Results suggest past infection. ADDITIONAL INFORMATION In most populations, at least 90% of the adult population will have been infected with EBV sometime in the past and therefore, will be positive for anti-VCA/IgG and anti- EBNA. Antibodies to EBNA develop 6-8 weeks after primary infection and remain present for life. Presence of VCA/ IgM antibodies indicates recent primary infection with EBV. Test Performed by: [facility] [address], [place] [address] 9 Meat Apprentice: [id number] Procedures Description No Information Available Medical Devices Description No Information Available Encounters Type Date Location Provider Dx Diagnosis Office Visit 05/06/2019 10:05a Main Office Shea Castellon PA R42 Dizziness and giddiness I10 Essential (primary) hypertension M50.10 Cervical disc disorder w radiculopathy, unsp cervical region Office Visit 03/27/2019 11:25a Main Office Shea Castellon PA M54.2 Cervicalgia M50.121 Cervical disc disorder at C4-C5 level with radiculopathy I10 Essential (primary) hypertension Office Visit 12/25/2018 8:40a Main Office Shea Castellon J02.9 Acute pharyngitis, PA unspecified Assessments Date Code Description Provider 05/06/2019 R42 Dizziness and giddiness Shea Castellon PA 05/06/2019 I10 Essential (primary) hypertension Shea Castellon PA 05/06/2019 M50.10 Cervical disc disorder with radiculopathy, Shea Castellon PA unspecified cervical region 03/27/2019 M54.2 Cervicalgia Shea Castellon PA 03/27/2019 M50.121 Cervical disc disorder at C4-C5 level with Shea Castellon PA radiculopathy 03/27/2019 I10 Essential (primary) hypertension Shea Castellon PA 12/25/2018 J02.9 Acute pharyngitis, unspecified Shea Castellon PA Plan of Treatment Future Appointment(s):05/29/2019 11:25 am - Shea Castellon PA at Main [id number] 11:45 am - Shea Castellon PA at Main [id number]/27/2019 - Shea Castellon PAM54.2 CervicalgiaComments:Recurrent neck pain with DDD, OA and C6-7 foraminal narrowing on recent MRI. Rx for medrol dose pack. F/U w neurosurgeon in March.M50.121 Cervical disc disorder at C4-C5 level with radiculopathyNew Medication:Methylprednisolone 4 mg - use as directed on [id number] Essential ( primary) hypertensionComments:Good control on current meds, continue same. Functional Status Description No Information Available Mental Status Description No Information Available Referrals Description No Information Available
[2019-05-08 16:35] LABS: ABS Eosinophils 0.1 10^3/ul (0-0.6); ABS Lymphocytes 1.6 10^3/ul (1.0-4.8); ABS Monocytes 0.4 10^3/ul (0-0.8); ABS Neutrophils 5.9 10^3/ul (1.5-7.7); Eosinophil % 0.8 %; Hematocrit 41 % (35-47); Hemoglobin 13.8 g/dL (12.0-16.0); Lymphocyte % 20.4 %; Mean Corpuscular HGB Conc 34 g/dL (31-36); Mean Corpuscular Hemoglobin 30 pg (27-31); Mean Corpuscular Volume 87 fL (80-97); Mean Platelet Volume 7.7 fL (7.4-10.4); Nucleated Red Blood Cells % 0.1; Platelet Count 304 10^3/uL (150-450); Red Blood Count 4.63 10^6 /uL (3.70-4.87); Red Cell Distribution Width 14 % (10-15)
[2019-05-08 16:56] LABS: Albumin 4.3 g/dL (3.2-5.2); Calcium 9.6 mg/dL (8.6-10.3); Potassium 3.9 mmol/L (3.5-5.0); Total Bilirubin 0.4 mg/dL (0.2-1.0)
[2019-05-08 17:01] LABS: Albumin/Globulin Ratio 1.3 (1-3); BUN/Creatinine Ratio 14.5 (8-20); EGFR Non-African American 82.7 (>60); Globulin 3.3 g/dL (2-4); Total Protein 7.6 g/dL (6.4-8.9)
--- NOTE | 2019-05-08 19:25 | ED ---
Dizziness - HPI Summary HPI Summary: 43 year old F presenting to [facility] accompanied by mother and father with a chief complaint of dizziness described as faintness and having waves of going to pass out for the past 2 weeks, worse since the past few days. Patient reports intermittent lightheadedness, ABBOTT, chills, and nausea. Patient reports a periodic burning in her chest that started in the last 4 days that is random and does not occur at the same time as her lightheadedness. Patient denies syncope, head injuries, or falls. Patient denies SOB, fever, sweats, erythema of eyes, sore throat, SOB, cough, abdominal pain, V, dysuria, hematuria , myalgia, edema, or rash. Symptoms aggravated by getting up and moving around. Symptoms alleviated by nothing. Patient states that movement does not have any effect on her symptoms. Patient denies any unusual stress. Patient started a new BP medicine, Losartan, 2 days ago. Patient reports she started getting a burning sensation down her neck and shoulders that led to a MRI and CT being taken a few weeks ago. Patient has had a spinal fusion in her neck 1 years ago and ever since then has had inconsistent blood pressures. Patient reports she used to get migraines a lot but after she started taking atenolol the migraines stopped. - History Of Current Complaint Chief Complaint: EDHypertension Stated Complaint: HIGH BLOOD PRESSURE , Time Seen by Provider: 05/08/19 15:42 Hx Obtained From: Patient Onset/Duration: Still Present Aggravating Factor(s): Position Change - getting up and moving around Alleviating Factor(s): Nothing Associated Signs And Symptoms: Positive: Nausea, Chest Pain, Chills, Other: - Patient reports intermittent lightheadedness and ABBOTT. Patient denies syncope, head injuries, or falls. Patient denies erythema of eyes, sore throat, cough, abdominal pain, dysuria, hematuria, myalgia, edema, or rash.. Negative: Vomiting, Diaphoresis, SOB, Fever - Allergies/Home Medications Allergies/Adverse Reactions: Allergies Allergy/AdvReac Type Severity Reaction Status Date / Time erythromycin base Allergy Vomiting Verified 05/08/19 14:58 hydromorphone Allergy Unknown Verified 05/08/19 14:58 Reaction Details Home Medications: Home Medications Losartan TAB* 50 mg PO DAILY 05/08/19 [History Confirmed 05/08/19] PMH/Surg Hx/FS Hx/Imm Hx Endocrine/Hematology History: Reports: Other Endocrine/Hematological Disorders - morbid obesity Denies: Hx Anticoagulant Therapy, Hx Blood Disorders, Hx Diabetes, Hx Thyroid Disease Cardiovascular History: Reports: Hx Hypertension Denies: Hx Pacemaker/ICD Respiratory History: Denies: Hx Asthma, Hx Chronic Obstructive Pulmonary Disease (COPD) GI History: Reports: Hx Gall Bladder Disease - removed Denies: Hx Ulcer History: Denies: Hx Renal Disease Musculoskeletal History: Denies: Hx Scoliosis Sensory History: Reports: Hx Contacts or Glasses - GLASSES Denies: Hx Hearing Aid Opthamlomology History: Reports: Hx Contacts or Glasses - GLASSES Neurological History: Reports: Hx Migraine - TAKES ATENOLOL FOR - STATES RARELY HAS NOW Denies: Hx Headaches Psychiatric History: Reports: Hx Anxiety Denies: Hx Panic Disorder - Surgical History Surgery Procedure, Year, and Place: CHOLECYSTECTOMY 2011,. SINUS SURGERY. ACDF surg 01/17/18 - cervical fusion Hx Anesthesia Reactions: Yes - HYDROMORPHONE Infectious Disease History: No Infectious Disease History: Denies: Hx Clostridium Difficile, Hx Hepatitis, Hx Human Immunodeficiency Virus (HIV), Hx of Known/Suspected MRSA, Hx Shingles, Hx Tuberculosis, Hx Known/ Suspected VRE, Hx Known/Suspected VRSA, History Other Infectious Disease, Traveled Outside the [place] in Last 30 Days - Family History Known Family History: Positive: Hypertension, Other - cancer Negative: Diabetes, Renal Disease - Social History Alcohol Use: None Hx Substance Use: No Substance Use Type: Reports: None Hx Tobacco Use: No Smoking Status (MU): Never Smoked Tobacco Have You Smoked in the Last Year: No Review of Systems Positive: Chills. Negative: Fever, Skin Diaphoresis Negative: Erythema Negative: Sore Throat Positive: Chest Pain Negative: Shortness Of Breath, Cough Positive: Nausea. Negative: Abdominal Pain, Vomiting Negative: dysuria, hematuria Negative: Myalgia, Edema Negative: Rash Neurological: Other - dizziness, lightheadedness Positive: Headache. Negative: Syncope All Other Systems Reviewed And Are Negative: Yes Physical Exam - Summary Physical Exam Summary: Constitutional: Well-developed, Well-nourished, Alert. (-) Distressed Skin: Warm, Dry HENT: Normocephalic; Atraumatic Eyes: Conjunctiva normal Neck: Musculoskeletal ROM normal neck. (-) JVD, (-) Stridor, (-) Tracheal deviation Cardio: Rhythm regular, rate normal, Heart sounds normal; Intact distal pulses; The pedal pulses are 2+ and symmetric. Radial pulses are 2+ and symmetric. (-) Murmur Pulmonary/Chest wall: Effort normal. (-) Respiratory distress, (-) Wheezes, (-) Rales Abd: Soft, (-) tenderness, (-) Distension, (-) Guarding, (-) Rebound Musculoskeletal: (-) Edema Lymph: (-) Cervical adenopathy Neuro: Alert, Oriented x3 Psych: Mood and affect Normal GCS: 15 Triage Information Reviewed: Yes Vital Signs On Initial Exam: Initial Vitals Temp Pulse Resp BP Pulse Ox 99.1 F 60 18 204/92 94 05/08/19 14:58 05/08/19 14:58 05/08/19 14:58 05/08/19 14:58 05/08/19 14:58 Vital Signs Reviewed: Yes Diagnostics - Vital Signs Vital Signs Temp Pulse Resp BP Pulse Ox 05/08/19 17:49 52 21 144/81 95 05/08/19 17:29 53 21 148/80 96 05/08/19 17:00 49 19 97 05/08/19 16:49 54 20 163/75 98 05/08/19 16:19 53 168/81 97 05/08/19 16:18 57 98 05/08/19 14:58 99.1 F 60 18 204/92 94 - Laboratory Lab Results: Lab Results 05/08/19 05/08/19 05/08/19 Range/Units 16:26 16:26 16:26 WBC 8.0 (3.5-10.8) 10^3/uL RBC 4.63 (3.70-4.87) 10^6 /uL Hgb 13.8 (12.0-16.0) g/dL Hct 41 (35-47) % MCV 87 (80-97) fL MCH 30 (27-31) pg MCHC 34 (31-36) g/dL RDW 14 (10-15) % Plt Count 304 (150-450) 10^3/uL MPV 7.7 (7.4-10.4) fL Neut % (Auto) 73.0 % Lymph % (Auto) 20.4 % [place] % (Auto) 5.3 % Eos % (Auto) 0.8 % Baso % (Auto) 0.5 % Absolute Neuts (auto) 5.9 (1.5-7.7) 10^3/ul Absolute Lymphs (auto) 1.6 (1.0-4.8) 10^3/ul Absolute Monos (auto) 0.4 (0-0.8) 10^3/ul Absolute Eos (auto) 0.1 (0-0.6) 10^3/ul Absolute Basos (auto) 0.0 (0-0.2) 10^3/ul Absolute Nucleated RBC 0.0 10^3/ul Nucleated RBC % 0.1 Sodium 140 (135-145) mmol/L Potassium 3.9 (3.5-5.0) mmol/L Chloride 104 (101-111) mmol/L Carbon Dioxide 28 (22-32) mmol/L Anion Gap 8 (2-11) mmol/L BUN 11 (6-24) mg/dL Creatinine 0.76 (0.51-0.95) mg/dL Est GFR ( Amer) 100.0 (>60) Est GFR (Non-Af Amer) 82.7 (>60) BUN/Creatinine Ratio 14.5 (8-20) Glucose 125 H (70-100) mg/dL Lactic Acid 1.1 (0.5-2.0) mmol/L Calcium 9.6 (8.6-10.3) mg/dL Total Bilirubin 0.40 (0.2-1.0) mg/dL AST 18 (13-39) U/L ALT 20 (7-52) U/L Alkaline Phosphatase 60 (34-104) U/L Troponin I 0.00 (<0.04) ng/mL Total Protein 7.6 (6.4-8.9) g/dL Albumin 4.3 (3.2-5.2) g/dL Globulin 3.3 (2-4) g/dL Albumin/Globulin Ratio 1.3 (1-3) TSH Pending Free T4 Pending Result Diagrams: 05/09/19 03:43 05/09/19 03:43 Lab Statement: Any lab studies that have been ordered have been reviewed, and results considered in the medical decision making process. - Radiology Chest X-Ray Radiology Interpretation Completed By: Radiologist Summary of Radiographic Findings: Per radiologist,. NO EVIDENCE FOR ACTIVE CARDIOPULMONARY DISEASE. ED physician has reviewed this imaging report. - CT Brain CT CT Interpretation Completed By: Radiologist Summary of CT Findings: Per radiologist,. No acute intracranial abnormality. ED physician has reviewed this imaging report. - Ultrasound Bilateral carotid Ultrasound Interpretation Completed By: Radiologist Summary of Ultrasound Findings: Per radiologist,. Normal carotid ultrasound. ED physician has reviewed this report. Dizzy Course/Dx - Course Course Of Treatment: 43 year old F presenting to [facility] accompanied by mother and father with a chief complaint of dizziness described as faintness and having waves of going to pass out for the past 2 weeks, worse since the past few days. Patient reports intermittent lightheadedness, ABBOTT, chills, and nausea. Patient reports a periodic burning in her chest that started in the last 4 days that is random and does not occur at the same time as her lightheadedness. Patient denies syncope, head injuries, or falls. Patient denies fever, sweats, erythema of eyes, sore throat, SOB, cough, abdominal pain, V, dysuria, hematuria , myalgia, edema, or rash. Symptoms aggravated by getting up and moving around. Patient states that movement does not have any effect on her symptoms. Patient started a new BP medicine, Losartan, 2 days ago. Physical exam reveals no abnormalities. GCS is 15. Bloodwork shows no abnormalities except for glucose 125 H. Chest X-Ray reveals NO EVIDENCE FOR ACTIVE CARDIOPULMONARY DISEASE. Brain CT reveals No acute intracranial abnormality. Bilateral carotid US reveals Normal carotid ultrasound. Hospitalist, Dr. Frazier, accepts admission for patient who will be admitted. - Diagnoses Provider Diagnoses: Chest pain, unspecified, Uncontrolled hypertension - Provider Notifications Discussed Care Of Patient With: Eduardo Frazier Instructed by Provider To: Admit As Inpatient Discharge ED - Sign-Out/Discharge Documenting (check all that apply): Patient Departure - admit Patient Received Moderate/Deep Sedation with Procedure: No - Discharge Plan Condition: Fair Disposition: ADMITTED TO [facility] - Billing Disposition and Condition Condition: FAIR Disposition: Admitted to [facility] - Attestation Statements Document Initiated by Scribe: Yes Documenting Scribe: Yumiko May Provider For Whom Scribe is Documenting (Include Credential): Dr. Chavez Barraza MD Scribe Attestation: IYumiko, scribed for Dr. Chavez Barraza MD on 05/20/19 at 1432. Scribe Documentation Reviewed: Yes Provider Attestation: The documentation as recorded by the scribe, Yumiko May accurately reflects the service I personally performed and the decisions made by me, Dr. Chavez Barraza MD Status of Scribe Document: Viewed
[2019-05-08 19:43] LABS: TSH (Thyroid Stimulating Horm) 1.3 mcIU/mL (0.34-5.60)
[2019-05-08 19:45] LABS: Free T4 0.85 ng/dL (0.61-1.12)
[2019-05-08] MEDS ORDERED: Aspirin 81 mg CHEW TAB* 81 MG TAB.CHEW PO ONE (20:45)
[2019-05-08] MEDS ORDERED: Nitroglycerin TAB 0.4 MG* 0.4 MG TAB SL ONE (20:45)
[2019-05-08] MEDS ORDERED: hydrALAZINE TAB* 25 MG PO SCH (23:00)
[2019-05-08] MEDS: Losartan TAB* 25 MG PO SCH (23:31)
[2019-05-09] MEDS ORDERED: Acetaminophen TAB* 325 MG ONE (00:24)
--- NOTE | 2019-05-09 00:28 | HP ---
CC: DMAIR Hernandze* ADMISSION HISTORY AND PHYSICAL: DATE OF ADMISSION: 05/08/19 CHIEF COMPLAINT: Dizziness and lightheadedness. HISTORY OF PRESENT ILLNESS: This is a 43-year-old female with past medical history of hypertension, anxiety, psoriasis, migraine; on atenolol here due to lightheadedness. The patient stated that she has been having on and off lightheaded sensation for the last few days. She did present to the ER 3 days prior and was sent home on meclizine, and she had tried meclizine; however, this did not improve her dizziness, so she stopped after 2 attempts with meclizine. Her lightheadedness is accompanied by some headache and some chills and nausea. She did have an episode of vomiting this morning when her blood pressure was elevated to 200. She also had noticed a burning type of chest pain over the last 4 days and she does not think it is related to the dizziness , though, that she has been having for the last 2 weeks, but the pain is located in the anterior chest, feels hot like heat radiating, accompanied with some palpitations and feeling flushed, but no shortness of breath and no alleviating or aggravating factors. She has been having high blood pressure according to her. She is also complaining of neck pain, but she states that this is more chronic in nature. She has had a spinal surgery of cervical fusion and anterior diskectomy in December [address] Liu and has plans to do another cervical surgery, and the neck pain and the burning sensation in the back of the neck and numbness on her right arm are being addressed on an outpatient basis by the neurologist, and this is a chronic issue. She has been on high blood pressure medication, especially the atenolol, which was initially started for her migraine history and was recently started on losartan 2 days ago as well. Otherwise, she offers no other abdominal pain, any diarrhea or constipation. No other numbness or tingling other than the one stated already, which are chronic. No weakness. PAST MEDICAL HISTORY: Moderate obesity, history of migraine, psoriasis, anxiety , hypertension, neck pain. PAST SURGICAL HISTORY: She has had anterior diskectomy in December [address] Liu, status post cholecystectomy, and history of sinus surgery. HOME MEDICATIONS: Currently, she is prescribed include: 1. Losartan 50 mg oral daily. 2. Atenolol 50 mg oral daily. 3. Meclizine 25 mg oral t.i.d., which she stopped taking after 2 doses. ALLERGIES: The patient is documented to be allergic to ERYTHROMYCIN BASE, which causes vomiting, and HYDROMORPHONE, which causes unknown reaction. FAMILY HISTORY: Both mother and father are, otherwise, healthy. Mother has psoriasis at age 68 and also has hypertension, had a history of gastric bypass and cholecystectomy. Father, age 70, had rheumatoid arthritis and recently diagnosed with hypertension. Grandmother of stroke due to carotid plaque disease. SOCIAL HISTORY: The patient denied any smoking, alcohol, or drugs. She is a full code and wishes her mother and father to be the surrogate decision makers who are present at bedside. REVIEW OF SYSTEMS: A 14-point review of systems did not reveal any new information, other than what is stated in the HPI. PHYSICAL EXAMINATION GENERAL: The patient is awake, alert and oriented x3, does not appear to be in any acute distress. VITAL SIGNS: In ER, BP was noted to be 165/76, heart rate is fluctuating between 50 and 60, respiration rate 16, saturating 97% on room air, temperature documented at 99.1. Initial blood pressure upon arrival to the ER was noted to be 204/92. HEAD AND NECK: Atraumatic, normocephalic. Bilateral pupils are reactive. Oral mucosa was moist. Neck: Supple. No jugular venous distention. No carotid bruits. LUNGS: Clear to auscultation bilaterally. No wheezing, rhonchi, or rales. HEART: S1, S2. Regular rate and rhythm. ABDOMEN: Soft, nontender, and nondistended. EXTREMITIES: No cyanosis, clubbing, or edema. There is swelling in the extremities, but this seemed more of adiposity, but not real fluid retention or edema. DIAGNOSTIC STUDIES/LAB DATA: CBC was unremarkable. Comprehensive metabolic panel was unremarkable, except for elevated random glucose at 125. TSH and free T4 were within normal limits. Two sets of troponins were normal. Lactic acid was normal at 1.1. CT brain was read as no acute intracranial abnormality. Portable chest x-ray, no evidence of active cardiopulmonary disease. EKG showed some nonspecific biphasic T wave in V2 and some T-wave flattening and inversion in V3 to V4 as well. When compared to her older EKG, this was not present. T waves were still minimal, but they were still in the upright position. IMPRESSION: This is a 43-year-old female with hypertension, which was uncontrolled, came in with chest pain and lightheadedness, possibly due to uncontrolled blood pressure. ASSESSMENT AND PLAN: 1. Presyncopal episode without real loss of consciousness, possibly related to elevated blood pressure. We will start the patient on blood pressure medication control. The other reason could be from symptomatic bradycardia as the patient was noted to be bradycardic on telemetry while she was feeling dizzy. Bradycardia could be secondary to the patient's atenolol, which is mostly prescribed for her migraine. For now, we will monitor the patient on telemetry. We will get a carotid ultrasound as well, as the father stated that the grandmother had a stroke secondary to carotid disease. 2. Chest pain, rule out acute coronary syndrome. Serial troponins so far 2 sets were negative. We will further test troponins in light of her T-wave flattening and biphasic T waves as noted in the newer EKG. We will repeat another EKG in the morning and follow up with an echocardiogram and a stress test. 3. Uncontrolled blood pressure. As mentioned, we will control it with blood pressure medications. For now, we will start the patient on home medication of losartan and add hydralazine and monitor blood pressure on the telemetry floor and add further medications as needed. 4. Elevated random glucose. We will check an A1c. We will also risk stratify the patient with lipid profile as well. 5. DVT prophylaxis, with sequential compression device. [id number]/[facility] #: [id number] JUNE
[2019-05-09 04:01] LABS: ABS Eosinophils 0.1 10^3/ul (0-0.6); ABS Lymphocytes 2.7 10^3/ul (1.0-4.8); ABS Monocytes 0.5 10^3/ul (0-0.8); ABS Neutrophils 4.6 10^3/ul (1.5-7.7); Eosinophil % 1.6 %; Hematocrit 39 % (35-47); Hemoglobin 13.3 g/dL (12.0-16.0); Lymphocyte % 33.6 %; Mean Corpuscular HGB Conc 34 g/dL (31-36); Mean Corpuscular Hemoglobin 30 pg (27-31); Mean Corpuscular Volume 87 fL (80-97); Mean Platelet Volume 8.1 fL (7.4-10.4); Nucleated Red Blood Cells % 0.1; Platelet Count 277 10^3/uL (150-450); Red Cell Distribution Width 14 % (10-15); White Blood Count 7.9 10^3/uL (3.5-10.8)
[2019-05-09 04:16] LABS: BUN/Creatinine Ratio 14.9 (8-20); Calcium 9.4 mg/dL (8.6-10.3); EGFR African American 103.2 (>60); EGFR Non-African American 85.3 (>60); HDL Cholesterol 34.2 mg/dL; Potassium 3.6 mmol/L (3.5-5.0)
[2019-05-09] MEDS: Acetaminophen TAB* 325 MG PO PRN ×2 (08:10→12:49)
[2019-05-09] MEDS: Aspirin EC TAB* 325 MG PO SCH (08:10)
[2019-05-09] MEDS ORDERED: amLODIPine TAB* 5 MG PO SCH (09:00)
[2019-05-09] MEDS ORDERED: Regadenoson* 0.4 MG/5 ML SYRINGE ONE (12:23)
--- NOTE | 2019-05-09 16:09 | ECHO ---
*[facility]* [place] [address] Fax #: [phone] Transthoracic Echocardiogram Patient: Audrey Hoang : 1975 Study Date: 05/09/2019 Age: 43 Gender: F HR: 44 bpm Height: 65 in /165.1 cm BSA: 2.31 m^2 Weight: 287.4 lb /130.6 kg BMI: 47.9 kg/m^2 *Hearing Aid Assembly Supervisor: * Linh Fair [facility] *Referring Physician: * Eduardo Frazier *Reading Physician: * Goyo Morin MD Indications: Chest Pain, unspecified. History: Risk factors: Hypertension. Morbidly obese. Conclusions Summary: - Left ventricle: Systolic function is normal. The estimated ejection fraction is 55-60%. - Right ventricle: The cavity size is normal. Wall thickness is mildly increased. - Left atrium: The atrium is at the upper limits of normal in size. - Right atrium: The atrium is mildly dilated. - Mitral valve: There is trace to mild regurgitation. - Aortic valve: There is trace to mild regurgitation. Study data: Transthoracic echocardiogram. Procedure: Transthoracic echocardiography was performed. Image quality was fair. Complete 2D, spectral Doppler, and color flow Doppler. Location: Bedside. Patient status: Inpatient. Patient room number: 448-2. Rhythm: Bradycardia. Findings Left ventricle: The cavity size is normal. Wall thickness is normal. Systolic function is normal. The estimated ejection fraction is 55-60%. Wall motion is normal; there are no regional wall motion abnormalities. Left ventricular diastolic function parameters are indeterminate. Right ventricle: The cavity size is normal. Wall thickness is mildly increased. The moderator band is in a normal position. Systolic function is normal. Left atrium: The atrium is at the upper limits of normal in size. Right atrium: The atrium is mildly dilated. Mitral valve: Appears mildly calcified. There is no evidence of stenosis. There is trace to mild regurgitation. Aortic valve: The valve is trileaflet. The leaflets are mildly thickened. There is no evidence of stenosis. There is trace to mild regurgitation. Tricuspid valve: The leaflets are normal thickness. There is no evidence of stenosis. There is mild regurgitation. Pulmonic valve: The leaflets are normal thickness. There is no evidence of stenosis. There is trace regurgitation. Aorta: Ascending aorta: The ascending aorta is appears normal. The aortic root appears normal. The aortic arch appears normal. Pericardium: A prominent pericardial fat pad is present. There is no significant pericardial effusion. Pulmonary arteries: The main pulmonary artery is normal-sized. Systolic pressure is within the normal range. Pulmonary artery pressure may be underestimated Systemic veins: Inferior vena cava: The vessel is normal in size. There is (>= 50%) respiratory change in the IVC dimension. Measurements Left ventricle Value Ref Aortic valve Value Ref KY, LAX 5.1 cm 3.8 - 5.2 [place] diam, ED 1.9 cm ----- ESD, LAX (H) 3.6 cm 2.2 - 3.5 Peak v, S 1.53 m/sec ----- FS, LAX 31 % 27 - 45 VTI, S 39.8 cm ----- PW, ED, LAX (H) 1.0 cm 0.6 - 0.9 Mean grad, S 5.0 mm Hg ----- FS 31 % 27 - 45 Peak grad, S 9.0 mm Hg ----- PW, ED (H) 1.0 cm 0.6 - 0.9 LVOT/AV, VTI ratio 0.65 ----- E', lat bolivar, TDI (L) 5.4 cm/sec >=10.0 E/e', lat bolivar, 15 Mitral valve Value Ref TDI Peak E 0.79 m/sec ----- E', med bolivar, TDI (L) 5.8 cm/sec >=7.0 Peak A 0.66 m/sec --- -- E/e', med bolivar, 14 Decel time 275 ms ----- TDI Peak grad, D 2.5 mm Hg ----- E', avg, TDI 5.6 cm/sec Peak E/A ratio 1.2 ----- E/e', avg, TDI 14 <=14 Pulmonic valve Value Ref LVOT Value Ref Peak v, S 0.96 m/sec ----- Peak sallie, S 1.06 m/sec Peak grad, S 4.0 mm Hg ----- VTI, S 26.0 cm Mean grad, S 2 mm Hg Tricuspid valve Value Ref TR peak v 2.6 m/sec <=2.8 Ventricular septum Value Ref Peak RV-RA grad, S 27 mm Hg ----- IVS, ED (H) 1.0 cm 0.6 - 0.9 Aortic root Value Ref Right ventricle Value Ref Root diam 2.9 cm <4.4 AW thickness, ED (H) 0.8 cm 0.1 - 0.5 KY, LAX 3.0 cm Ascending aorta Value Ref KY minor ax, A4C (H) 4.1 cm 1.9 - 3.5 AAo AP diam, S 3.6 cm ----- mid Pressure, S 30 mm Hg Aortic arch Value Ref Arch diam 2.7 cm ----- Left atrium Value Ref AP dim, ES 3.60 cm 2.70 - Decending aorta Value Ref 3.80 Zaira peak sallie 1.1 m/sec ----- ML dim, A4C 4.8 cm SI dim, A4C 5.3 cm Pulmonary artery Value Ref Vol/bsa, ES, 1-p 32 ml/m^2 11 - 40 Pressure, S 26.0 mm Hg ----- A4C Vol/bsa, ES, A/L 31 ml/m^2 16 - 34 Inferior vena cava Value Ref Diam 1.9 cm ----- Right atrium Value Ref SI dim, ES (H) 5.5 cm 3.4 - 5.3 ML dim, ES, A4C 4.0 cm 2.6 - 4.4 SI dim, ES, A4C (H) 5.5 cm 3.4 - 5.3 Estimated RAP 3 mm Hg Legend: (L) and (H) mana values outside specified reference range. Prepared and electronically signed by Goyo Morin MD 05/09/2019 16:09
[2019-05-09] MEDS ORDERED: ALPRAZolam TAB* 0.25 MG PO PRN (17:33)
--- NOTE | 2019-05-09 17:46 | CONS ---
CONSULTATION REPORT: ADDENDUM: DATE OF CONSULT: 05/09/19 ASSESSMENT AND RECOMMENDATIONS: Ms. Audrey Hoang is a 43-year-old female who has a history of anxiety; cervical spondylosis, status post fusion in December of 2017, who is presenting with subacute to chronic symptoms of lightheadedness described as transient "wave across her head." This is associated with headaches. She does not have any episodes of loss of awareness or consciousness. The symptoms last less than 10 seconds. There are no known triggering or alleviating factors except for time. The neurological examination is nonfocal. Her CT of the head showed no evidence of acute intracranial abnormality. 1. Lightheadedness, the etiology is unclear at this point. I suspect that she may have some autonomic response to her hypertensive urgency or bradycardia. I do not suspect that this is a seizure or stroke given that occasionally, certain position can trigger her symptoms. Other differential diagnosis includes migraine-like phenomenon or unexplained dizziness that can be seen in patients with psychiatric problem. If she continues to have symptoms after adjusting her blood pressure medication, controlling her blood pressure, and discontinuing atenolol, then following up with us for possible ambulatory or outpatient routine EEG and an MRI of the brain without contrast is recommended. I discussed these recommendations with the patient and her mother at bedside. I answered all their questions to the best of my abilities. I discussed the recommendation with Dr. Álvarez as well. The patient will most likely be discharged to home today. [id number]/[facility] #: [id number] JUNE
--- NOTE | 2019-05-09 17:46 | CONS ---
NEUROLOGY CONSULTATION NOTE: DATE OF CONSULT: 05/09/19 CONSULTING PROVIDER: Dr. Graciela Álvarez. REASON FOR CONSULT: Episodes of lightheadedness. CHIEF COMPLAINT: "I feel a wave across my head." HISTORY OF PRESENT ILLNESS: Ms. Audrey Hoang is a 43-year-old female with past medical history of migraine headache, who is taking atenolol; hypertension; anxiety; cervical spondylosis, status post fusion by Dr. Liu in 2018. The patient presented to [facility] ER for symptoms of lightheadedness. She stated that she has had symptoms of lightheadedness for approximately 3 weeks. The symptoms are described as feeling a wave across her head. She feels something quickly runs across her eyes on both sides. This lasts for approximately 10 seconds. She is getting the symptoms 5 to 10 times a day. They are no known triggers. However, she has noticed when she moves quickly in bed they could occur. Nothing makes it better other than waiting for approximately 10 seconds. She describes the wave as if she is going to faint. She has no associated symptoms of tinnitus or vertigo. She does feel a constant burning sensation in the neck as well as both hands. She noticed the symptoms after getting the MRI and was told that she has a new herniated disk in the cervical spine. She also states that when she talks to someone she has to turn her body instead of just turning her neck. The patient stated that she came in with a blood pressure in the 200s. She is very frustrated that she did not receive the medical attention that she should have immediately and that made her extremely frustrated. She had orthostatic vitals today that were negative. The patient was on atenolol for 15 years. She was also started on amlodipine 1 year ago but that stopped 4 weeks ago. She was started on a blood pressure medication losartan 50 mg just 2 days ago. Her symptoms seemed to have worsened after starting losartan. PAST MEDICAL HISTORY: Overweight, migraine, psoriasis, anxiety, hypertension, neck pain. PAST SURGICAL HISTORY: Anterior diskectomy in 2018, sinus surgery. HOME MEDICATIONS: 1. Atenolol 50 mg daily. 2. Losartan 50 mg p.o. daily. 3. Meclizine 25 mg oral t.i.d., which she stopped taking after 2 doses. ALLERGIES: ERYTHROMYCIN BASE, HYDROMORPHONE. FAMILY HISTORY: No family history of stroke or seizures. SOCIAL HISTORY: The patient denied any tobacco, alcohol, or drug use. She lives alone. She has a son. REVIEW OF SYSTEMS: A 14-point review of systems was obtained and otherwise negative except for what was mentioned in the HPI. PHYSICAL EXAM: Vitals: Currently, temperature of 97.6, heart rate of 50, respiratory rate of 18, oxygen saturation of 95%, blood pressure of 132/72. General: Well-nourished, well-developed, overweight female, in no acute distress. Head: Atraumatic, normocephalic. There are no apparent abnormalities. Spurling sign is negative bilaterally. Neck is supple and symmetrical with no carotid bruits. No occipital notch tenderness. Eyes: Conjunctivae/corneas are clear. Cardiac: Regular rate and rhythm with normal S1 , S2. Respiratory: Clear to auscultation bilaterally with no wheezing or rhonchi. Extremities: Normal range of motion with no cyanosis. No hammertoes or high arches. Skin: No skin lesions or laceration. Psych: Affect is broad with normal mood. Neurological: Alert, oriented to person, place, time, and general circumstances. Speech and language functions are normal without any dysphasia or dysarthria. Cranial Nerves: Normal confrontation testing bilaterally. Pupils equal, round, reactive to light. Extraocular muscles are intact. No facial asymmetry. Tongue is symmetrical and midline with no atrophy or fasciculation. Motor: 5/5 strength in the upper and lower extremities. Normal tone and bulk throughout. Reflexes: 2+ in the upper and lower extremities bilaterally including ankles. She has downgoing plantar responses. Sensation is intact to light touch, vibration, and pinprick all throughout. Vibration and proprioception at the great toes are intact. Coordination: Normal [id number] and wwqa-do-jaog testing. Gait: The patient had slight wave-like sensation when she turned to sit at the edge of the bed and to stand, but that resolved within 10 seconds. Normal stance and gait. No ataxia. DIAGNOSTIC STUDIES/LAB DATA: WBC of 7.9, hemoglobin of 13.3, hematocrit of 39, platelet count of 277. Sodium of 138, potassium 3.6, chloride of 103, BUN of 11 , creatinine is 0.74, glucose of 124. Hemoglobin A1c is 6.4. Calcium is 9.4. TSH is 1.3. Vitamin B12 was not ordered. CT of the head DICTATION ENDS ABRUPTLY [id number]/[facility] #: [id number] [facility] HOSPITALGisell
--- NOTE | 2019-05-09 18:56 | PN ---
Hospitalist Progress Note Date of Service: 05/09/19 Nuris called me and reported that after I discussed discharge and the test results with Audrey, she had an episode of "flushing" and not feeling well. Her vitals were normal at the time of her symptoms. I came to see her and she describes sudden onset of facial flushing and lightheadedness. She looks well at this time and her exam remains unremarkable. She has had no tele events. She remains stable for discharge but unfortunately her ride has already left.
[2019-05-09 20:13] LABS: Urine Appearance Cloudy; Urine Bacteria 1+ (Absent); Urine Bilirubin Negative (Negative); Urine Blood 3+ (Negative); Urine Color Yellow; Urine Glucose Negative (Negative); Urine Ketones Negative (Negative); Urine Nitrite Negative (Negative); Urine Protein 1+(30 mg/dL) (Negative); Urine Red Blood Cell 3+(>10/hpf) (Absent); Urine Specific Gravity 1.028 (1.010-1.030); Urine Squamous Epithelial Cell Present (Absent); Urine Urobilinogen Negative (Negative); Urine White Blood Cell 1+(6-10/hpf) (Absent)
[2019-05-09] MEDS: Losartan TAB* 25 MG PO SCH (21:57)
--- NOTE | 2019-05-10 07:18 | PN ---
Subjective Date of Service: 05/09/19 Interval History: I rounded on Ms. Hoang in the morning on 05/09, then saw her again after her echo and stress were completed, and again in the evening at 7pm. At all times, she had no symptoms but complained of feelings of "faintness" frequently during which she describes waves of feeling flushed. She specifically denies dizziness , palpitations, chest pain, nausea. She had a slight frontal headache in the morning that resolved after some tylenol. Objective Active Medications: Acetaminophen (Tylenol Tab*) 650 mg PO Q4H PRN PRN Reason: PAIN - MILD Last Admin: 05/09/19 12:49 Dose: 650 mg Alprazolam (Xanax Tab*) 0.25 mg PO Q8H PRN PRN Reason: ANXIETY Last Admin: 05/09/19 22:02 Dose: 0.25 mg Aspirin (Ecotrin Ec Tab*) 325 mg PO DAILY [facility] Last Admin: 05/09/19 08:10 Dose: 325 mg Losartan Potassium (Cozaar Tab*) 50 mg PO 2100 [facility] Last Admin: 05/09/19 21:57 Dose: 50 mg Vital Signs - 8 hr 05/09/19 05/09/19 05/09/19 23:23 23:27 23:33 Temperature 98.1 F 98.1 F 98.1 F Pulse Rate 54 64 66 Respiratory 18 18 18 Rate Blood Pressure 114/76 111/78 123/81 (mmHg) O2 Sat by Pulse 95 99 97 Oximetry 05/10/19 05/10/19 01:50 04:07 Temperature 97.8 F Pulse Rate 57 Respiratory 16 17 Rate Blood Pressure 134/72 (mmHg) O2 Sat by Pulse 97 Oximetry Oxygen Devices in Use Now: None Appearance: alert, well appearing, comfortable, pleasant woman Eyes: No Scleral Icterus, - - no nystagmus Ears/Nose/Mouth/Throat: NL Teeth, Lips, Gums Neck: NL Appearance and Movements; NL JVP Respiratory: Symmetrical Chest Expansion and Respiratory Effort, Clear to Auscultation Cardiovascular: NL Sounds; No Murmurs; No JVD Abdominal: NL Sounds; No Tenderness; No Distention, - - obese Lymphatic: No Cervical Adenopathy Extremities: No Edema Skin: No Rash or Ulcers Neurological: Alert and Oriented x 3 Result Diagrams: 05/09/19 03:43 05/09/19 03:43 Additional Lab and Data: Lab Results 05/08/19 05/08/19 05/08/19 Range/Units 16:26 16:26 16:26 WBC 8.0 (3.5-10.8) 10^3/uL RBC 4.63 (3.70-4.87) 10^6 /uL Hgb 13.8 (12.0-16.0) g/dL Hct 41 (35-47) % MCV 87 (80-97) fL MCH 30 (27-31) pg MCHC 34 (31-36) g/dL RDW 14 (10-15) % Plt Count 304 (150-450) 10^3/uL MPV 7.7 (7.4-10.4) fL Neut % (Auto) 73.0 % Lymph % (Auto) 20.4 % Pettis % (Auto) 5.3 % Eos % (Auto) 0.8 % Baso % (Auto) 0.5 % Absolute Neuts (auto) 5.9 (1.5-7.7) 10^3/ul Absolute Lymphs (auto) 1.6 (1.0-4.8) 10^3/ul Absolute Monos (auto) 0.4 (0-0.8) 10^3/ul Absolute Eos (auto) 0.1 (0-0.6) 10^3/ul Absolute Basos (auto) 0.0 (0-0.2) 10^3/ul Absolute Nucleated RBC 0.0 10^3/ul Nucleated RBC % 0.1 Sodium 140 (135-145) mmol/L Potassium 3.9 (3.5-5.0) mmol/L Chloride 104 (101-111) mmol/L Carbon Dioxide 28 (22-32) mmol/L Anion Gap 8 (2-11) mmol/L BUN 11 (6-24) mg/dL Creatinine 0.76 (0.51-0.95) mg/dL Est GFR ( Amer) 100.0 (>60) Est GFR (Non-Af Amer) 82.7 (>60) BUN/Creatinine Ratio 14.5 (8-20) Glucose 125 H (70-100) mg/dL Lactic Acid 1.1 (0.5-2.0) mmol/L Calcium 9.6 (8.6-10.3) mg/dL Total Bilirubin 0.40 (0.2-1.0) mg/dL AST 18 (13-39) U/L ALT 20 (7-52) U/L Alkaline Phosphatase 60 (34-104) U/L Troponin I 0.00 (<0.04) ng/mL Total Protein 7.6 (6.4-8.9) g/dL Albumin 4.3 (3.2-5.2) g/dL Globulin 3.3 (2-4) g/dL Albumin/Globulin Ratio 1.3 (1-3) TSH Pending Free T4 Pending Assess/Plan/Problems-Billing Assessment: 43 year old woman with history of HTN presents with feelings of "faintness" / pre-syncope who was found to have htn urgency - Patient Problems (1) Pre-syncope Current Visit: Yes Status: Acute Comment: was initially thought to be related to bradycardia and HTN, but her symptoms have persisted despite a normal blood pressure all day and improved heart rate off atenolol, and also appropriate chronotropic response to exertion a TTE was unremarkable carotid US negative orthostatic vitals are normal a stress test was low risk no metabolic or infectious etiology neurology consulted and suggested no further testing plan to hold atenolol and follow up with primary care this week (2) HTN (hypertension) Current Visit: No Status: Acute Code(s): I10 - ESSENTIAL (PRIMARY) HYPERTENSION SNOMED Code(s): 67854412 Comment: continue losartan only; good control (3) Migraines Current Visit: No Status: Chronic Code(s): G43.909 - MIGRAINE, UNSP, NOT INTRACTABLE, WITHOUT STATUS MIGRAINOSUS SNOMED Code(s): 85292769 Comment: DC atenolol with the differential of bradycardia contributing to some of her symptoms; she will follow up with [facility] to discuss migraine alternatives Status and Disposition: stable for discharge
[2019-05-10 08:23] VITALS: BP 109/79
[2019-05-10] MEDS: Aspirin EC TAB* 325 MG PO SCH (10:07)
--- NOTE | 2019-05-10 20:19 | DS ---
CC: DAMIR Hernandez * DISCHARGE SUMMARY: DATE OF ADMISSION: 05/08/19 DATE OF DISCHARGE: 05/09/19 PRIMARY CARE PROVIDER: DAMIR Hernandez PRINCIPAL DISCHARGE DIAGNOSES: 1. Presyncope. 2. Hypertension. 3. Bradycardia. SECONDARY DISCHARGE DIAGNOSES: 1. Migraines. 2. Anxiety. MEDICATIONS: Losartan 50 mg daily. PHYSICAL EXAMINATION: Please see my progress note from 05/09/19 for my physical exam. Her vitals at discharge are 97.8, heart rate 55, respiratory rate 18, pulse ox 98% on room air, blood pressure 109/79. BRIEF HOSPITAL COURSE: Audrey Hoang is 43-year-old woman with history of migraines and hypertension who presented to the emergency department with several weeks of "faintness." Her initial blood pressure in the emergency department was 204/92, however, it improved to 168/81 without intervention and she complained of 3 days of worsening waves of "faintness and flushing" as she described them. Please see Dr. Frazier's H and P for full description of her HPI. We were asked to admit for concern for hypertensive urgency and "presyncope." She underwent a carotid ultrasound, a transthoracic echocardiogram, and a nuclear stress test, which all were unremarkable and unrevealing. Her orthostatic vital signs were normal. Her blood pressure remained well controlled on losartan only and she required no additional antihypertensives. She was noted to be slightly bradycardic in the 50s and the 40s while she sleeps, so her atenolol was held with the thought that perhaps some bradycardia was contributing to her symptoms. She had appropriate chronotropic response when she ambulated. She continued to feel faint on the morning of 05/09/19, so Neurology was consulted and recommended no further workup. They doubted seizure, TIA, or stroke, but did include a complex migraine -like phenomenon in the differential and recommended that she follow up with Neurology outpatient if her symptoms do continue. Regarding her migraines, with the atenolol on hold, I recommended that she follow up with her primary care doctor within 1 week to discuss alternatives for migraine prevention. She had recently been to the emergency department, received meclizine for possible vertigo; however, her symptoms were not vertiginous and she had no nystagmus, so this was discontinued. I encouraged her to check her blood pressure occasionally at work and bring a log to her primary care physician's office. DISPOSITION: Ms. Hoang is being discharged to home with her mother. CONDITION AT THE TIME OF DISCHARGE: Stable. [id number]/[facility] #: [id number] MTDGisell
== END 2019-05-10 10:15 | disposition home or self-care (01) ==
LOC: ED 14:56 → INTOOBSV 22:02 → MEDTELE 22:02
PROVIDERS: ADMIT Internal Medicine; ATTEND Internal Medicine
DX: R55 Syncope and collapse (principal); I10 Essential (primary) hypertension; R00.1 Bradycardia, unspecified; G43.909 Migraine, unspecified, not intractable, without status migrainosus; F41.9 Anxiety disorder, unspecified; R94.31 Abnormal electrocardiogram [ECG] [EKG]; Z79.899 Other long term (current) drug therapy
CPT/HCPCS: 36415; 70450; 71045; 78452; 80048; 80053; 80061; 81003; 81015; 82607; 83036; 83605; 84439; 84443; 84484; 85025; 87086; 93005; 93017; 93306; 93880; 99283; A9270-GY; A9502; G0378; J2785

== ENCOUNTER 2021-03-23 05:54 | Inpatient (IN) ==
[2021-03-23] MEDS ORDERED: Lactated Ringers 1000 ml BAG 1,000 ML IV SCH (06:00)
[2021-03-23] MEDS ORDERED: Buffered Lidocaine 1% SYRIN 1 ml INTRADERM ONE (06:35)
[2021-03-23] MEDS ORDERED: ceFAZolin 2 GM PREMIX 2 GM/50 ML BAG ONE (06:35)
[2021-03-23] MEDS ORDERED: Propofol 10 MG/ML 20 ML BTL ONE ×2 (06:47→12:10)
[2021-03-23] MEDS ORDERED: fentaNYL 250 mcg/5 ml 50 MCG/ML 5 ml VIAL (250 MCG) ONE (06:47)
[2021-03-23] MEDS ORDERED: Midazolam 2 mg/2 ml VIAL 1 mg/ml 2 ml VIAL (2 mg) ONE (06:47)
[2021-03-23] MEDS ORDERED: Dexamethasone IV 4 MG/ML VIAL 1 ml VIAL ONE (06:47)
[2021-03-23] MEDS ORDERED: Lidocaine 2% PF 5 ML VIAL ONE (06:47)
[2021-03-23] MEDS ORDERED: Phenylephrine IV 10 MG/ML 1 ml VIAL ONE ×2 (06:47→11:00)
[2021-03-23] MEDS ORDERED: Remifentanil 2 MG VIAL ONE ×3 (06:47→12:33)
[2021-03-23] MEDS ORDERED: Bacitracin INJECTION (manuf dc) 50,000 UNITS ONE (07:13)
[2021-03-23] MEDS ORDERED: Bupivacaine 0.25% EPI 200,000 30 ML SDV ONE (07:13)
[2021-03-23] MEDS ORDERED: ceFAZolin 1 GM ADVAN 1 GM ADDV.VIAL IVPB ONE (07:21)
[2021-03-23] MEDS ORDERED: Bacitracin OINTMENT TUBE ONE (07:55)
[2021-03-23] MEDS ORDERED: Glycopyrrolate IV 0.2 MG/ML 1 ML VIAL ONE (09:26)
[2021-03-23] MEDS ORDERED: Propofol 1,000 MG/100 ML BTL ONE (10:15)
[2021-03-23] MEDS ORDERED: Rocuronium 50 mg VIAL 10 mg/ml 5 ml VIAL (50 mg) ONE (10:38)
[2021-03-23] MEDS ORDERED: Acetaminophen IV 1 GM/100ML VI 100 ML ONE (11:12)
[2021-03-23] MEDS ORDERED: Ondansetron 4 mg VIAL 2 MG/ML 2 ml VIAL ONE ×2 (11:12→13:18)
[2021-03-23] MEDS ORDERED: Naloxone 0.4 mg VIAL 0.4 mg/ml 1 ml VIAL IV PRN (12:19)
[2021-03-23] MEDS: Ondansetron 4 mg VIAL 2 MG/ML 2 ml VIAL IV PRN ×2 (13:38→18:45)
[2021-03-23] MEDS ORDERED: fentaNYL 100 mcg/2 ml 50 MCG/ML VIAL ONE ×2 (13:41→14:22)
[2021-03-23] MEDS: fentaNYL 100 mcg/2 ml 50 MCG/ML VIAL IV PRN ×2 (13:42→14:24)
[2021-03-23] MEDS ORDERED: Magnesium Hydroxide LIQ 30 ML UDC PO PRN (14:04)
[2021-03-23] MEDS: Buffered Lidocaine 1% SYRIN 1 ml INTRADERM ONE (17:23)
[2021-03-23] MEDS: HYDROcodone/ACETAMIN 5/325 mg TAB PO PRN ×2 (18:45→23:33)
[2021-03-24] MEDS: CMCS: Nebivolol 2.5 mg TAB (NF) PO SCH (08:23)
[2021-03-24 09:13] LABS: ABS Lymphocytes 1.4 10^3/ul (1.0-4.8); ABS Monocytes 0.8 10^3/ul (0-0.8); ABS Neutrophils 11.7 10^3/ul (1.5-7.7); Hematocrit 38 % (35-47); Hemoglobin 12.8 g/dL (12.0-16.0); Lymphocyte % 10.3 %; Mean Corpuscular Hemoglobin 30 pg (27-31); Mean Corpuscular Hgb Conc 34 g/dL (31-36); Mean Corpuscular Volume 90 fL (80-97); Mean Platelet Volume 8.2 fL (7.4-10.4); Platelet Count 309 10^3/uL (150-450); Red Blood Count 4.22 10^6 /uL (3.70-4.87); Red Cell Distribution Width 14 % (10-15)
[2021-03-24] MEDS: Dexamethasone IV 4 MG/ML VIAL 1 ml VIAL IV SLOW PU SCH (13:37)
[2021-03-24] MEDS: Gadoteridol (CONTRAST) 279.3 MG/ML 10 ML IV ONE (20:34)
[2021-03-26 16:04] VITALS: BP 132/84
== END 2021-03-26 17:45 | disposition home or self-care (01) ==
LOC: OR 05:54 → SSU 05:54
PROVIDERS: ADMIT Neurological Surgery; ATTEND Internal Medicine

== ENCOUNTER 2021-03-30 02:23 | Inpatient (IN) ==
[2021-03-30] MEDS ORDERED: Morphine 10 MG/ML VIAL (1 ml) IV ONE ×3 (02:42→05:41)
[2021-03-30 03:35] LABS: ABS Eosinophils 0.2 10^3/ul (0-0.6); ABS Lymphocytes 2.4 10^3/ul (1.0-4.8); ABS Monocytes 0.5 10^3/ul (0-0.8); ABS Neutrophils 6.1 10^3/ul (1.5-7.7); Eosinophil % 2.6 %; Hematocrit 36 % (35-47); Hemoglobin 12.7 g/dL (12.0-16.0); Lymphocyte % 25.9 %; Mean Corpuscular HGB Conc 35 g/dL (31-36); Mean Corpuscular Hemoglobin 31 pg (27-31); Mean Corpuscular Volume 90 fL (80-97); Mean Platelet Volume 7.5 fL (7.4-10.4); Platelet Count 299 10^3/uL (150-450); Red Blood Count 4.05 10^6 /uL (3.70-4.87); Red Cell Distribution Width 14 % (10-15); White Blood Count 9.4 10^3/uL (3.5-10.8)
[2021-03-30 03:45] LABS: Albumin 3.5 g/dL (3.2-5.2); Calcium 8.8 mg/dL (8.6-10.3); Potassium 3.5 mmol/L (3.5-5.0); Total Bilirubin 0.3 mg/dL (0.2-1.0)
[2021-03-30 03:51] LABS: Albumin/Globulin Ratio 1.2 (1-3); C Reactive Protein 57.9 mg/L (<8.01); EGFR African American 112.7 (>60); EGFR Non-African American 93.2 (>60); Total Protein 6.5 g/dL (6.4-8.9)
[2021-03-30] MEDS ORDERED: Lorazepam PYXIS KEY PRN (06:06)
[2021-03-30] MEDS ORDERED: LORazepam 2 mg VIAL 1 ml IV PUSH ONE (06:06)
[2021-03-30] MEDS ORDERED: Dexamethasone IV 4 MG/ML VIAL 1 ml VIAL IV SLOW PU ONE (06:13)
[2021-03-30] MEDS ORDERED: hydrALAZINE 20 mg/ml 1 ML Vial IV IV SLOW PU ONE (07:49)
[2021-03-30] MEDS: Ondansetron 4 mg VIAL 2 MG/ML 2 ml VIAL IV PRN (08:06)
[2021-03-30] MEDS: Acetaminophen IV 1 GM/100ML 100 ML IVPB SCH ×2 (09:43→17:44)
[2021-03-30] MEDS: Lidocaine PATCH 5% PATCH TRANSDERM SCH (09:47)
[2021-03-30] MEDS ORDERED: Dexamethasone IV 4 MG/ML VIAL 1 ml VIAL IV SLOW PU SCH (14:00)
[2021-03-30] MEDS: CMCS:Nebivolol 2.5 mg TAB (NF) PO SCH (17:46)
[2021-03-30] MEDS ORDERED: Nebivolol 5 mg TAB (NF) PO SCH (18:00)
[2021-03-30] MEDS ORDERED: CMCS: Ketorolac 10 mg TAB (NF) PO PRN (18:11)
[2021-03-30] MEDS: Lidocaine Patch REMOVE PATCH PATCH OFF SCH (21:32)
[2021-03-31 05:10] LABS: ABS Monocytes 0.5 10^3/ul (0-0.8); ABS Neutrophils 13.9 10^3/ul (1.5-7.7); Hematocrit 36 % (35-47); Hemoglobin 12.2 g/dL (12.0-16.0); Lymphocyte % 6.7 %; Mean Corpuscular HGB Conc 34 g/dL (31-36); Mean Corpuscular Hemoglobin 31 pg (27-31); Mean Corpuscular Volume 90 fL (80-97); Mean Platelet Volume 7.6 fL (7.4-10.4); Platelet Count 317 10^3/uL (150-450); Red Blood Count 3.95 10^6 /uL (3.70-4.87); Red Cell Distribution Width 14 % (10-15); White Blood Count 15.5 10^3/uL (3.5-10.8)
[2021-03-31 05:30] LABS: EGFR African American 135.4 (>60); EGFR Non-African American 111.9 (>60); Potassium 4.1 mmol/L (3.5-5.0)
[2021-03-31 05:47] LABS: INR 1.08 (0.86-1.15)
[2021-03-31] MEDS: Lidocaine PATCH 5% PATCH TRANSDERM SCH (08:28)
[2021-03-31 11:11] LABS: Hematocrit 36 % (35-47); Hemoglobin 12.3 g/dL (12.0-16.0); Mean Corpuscular HGB Conc 34 g/dL (31-36); Mean Corpuscular Hemoglobin 31 pg (27-31); Mean Corpuscular Volume 91 fL (80-97); Mean Platelet Volume 7.7 fL (7.4-10.4); Platelet Count 383 10^3/uL (150-450); Red Blood Count 3.96 10^6 /uL (3.70-4.87); Red Cell Distribution Width 14 % (10-15); White Blood Count 14.5 10^3/uL (3.5-10.8)
[2021-03-31 11:29] LABS: EGFR African American 72.2 (>60); EGFR Non-African American 59.7 (>60); Potassium 3.1 mmol/L (3.5-5.0); Troponin I 0.01 ng/mL (<0.03)
[2021-03-31 11:56] LABS: ABS Basophils 0.1 10^3/ul (0-0.2); ABS Lymphocytes 3.3 10^3/ul (1.0-4.8); ABS Monocytes 0.3 10^3/ul (0-0.8); ABS Neutrophils 10.8 10^3/ul (1.5-7.7); Eosinophil % 0.2 %; Lymphocyte % 22.7 %; RBC Morphology Normal (Normal)
[2021-03-31] MEDS ORDERED: Iodixanol (CONTRAST) 320 MG/ML 100 ML SDV IV ONE (12:02)
[2021-03-31 12:36] LABS: Magnesium 1.8 mg/dL (1.9-2.7)
[2021-03-31] MEDS ORDERED: Perflutren Lipid Microsphere 3 ML VIAL ONE (13:47)
[2021-03-31 14:48] LABS: Calcium 8.7 mg/dL (8.6-10.3); EGFR African American 94.8 (>60); EGFR Non-African American 78.3 (>60); Potassium 3.2 mmol/L (3.5-5.0)
[2021-03-31 14:51] LABS: Troponin I 0.06 ng/mL (<0.03)
[2021-03-31] MEDS: Ondansetron 4 mg VIAL 2 MG/ML 2 ml VIAL IV PRN (15:13)
[2021-03-31] MEDS: KCL 20 MEQ/100 ML IVPREMIX 20 MEQ/100 ML BAG IV SCH ×2 (15:40→23:35)
[2021-03-31 17:08] LABS: Hematocrit 36 % (35-47); Hemoglobin 12.3 g/dL (12.0-16.0)
[2021-03-31 17:43] LABS: Troponin I 0.04 ng/mL (<0.03)
[2021-03-31] MEDS ORDERED: Magnesium Sulfate 2 gm BAG 2 GM/50 ML BAG IVPB ONE (18:20)
[2021-03-31] MEDS: Lidocaine Patch REMOVE PATCH PATCH OFF SCH (23:51)
[2021-04-01] MEDS: KCL 20 MEQ/100 ML IVPREMIX 20 MEQ/100 ML BAG IV SCH ×2 (02:41→18:42)
[2021-04-01 06:28] LABS: ABS Eosinophils 0.3 10^3/ul (0-0.6); ABS Lymphocytes 2.6 10^3/ul (1.0-4.8); ABS Monocytes 0.5 10^3/ul (0-0.8); ABS Neutrophils 10.5 10^3/ul (1.5-7.7); Eosinophil % 1.8 %; Hematocrit 34 % (35-47); Hemoglobin 11.8 g/dL (12.0-16.0); Lymphocyte % 18.5 %; Mean Corpuscular HGB Conc 35 g/dL (31-36); Mean Corpuscular Hemoglobin 32 pg (27-31); Mean Corpuscular Volume 92 fL (80-97); Mean Platelet Volume 7.6 fL (7.4-10.4); Platelet Count 280 10^3/uL (150-450); Red Blood Count 3.67 10^6 /uL (3.70-4.87); Red Cell Distribution Width 15 % (10-15); White Blood Count 13.8 10^3/uL (3.5-10.8)
[2021-04-01 06:50] LABS: Anion Gap 5 mmol/L (2-11); Blood Urea Nitrogen 14 mg/dL (6-24); CO2 Carbon Dioxide 26 mmol/L (22-32); Calcium 8.1 mg/dL (8.6-10.3); Chloride 106 mmol/L (101-111); EGFR African American 112.7 (>60); EGFR Non-African American 93.2 (>60); Glucose 101 mg/dL (70-100); Potassium 4.3 mmol/L (3.5-5.0); Sodium 137 mmol/L (135-145)
[2021-04-01] MEDS: Lidocaine PATCH 5% PATCH TRANSDERM SCH (08:13)
[2021-04-01 09:52] LABS: Cholesterol 150 mg/dL; Creatine Kinase 20 U/L (10-223); HDL Cholesterol 32.7 mg/dL; LDL Cholesterol 77 mg/dL; Triglycerides 202 mg/dL
[2021-04-01 11:04] LABS: Troponin I 0.02 ng/mL (<0.03)
[2021-04-01] MEDS ORDERED: Regadenoson 0.4 MG/5 ML SYRINGE ONE (11:19)
[2021-04-01] MEDS ORDERED: Aminophylline 25 MG/ML VIAL ONE (11:19)
[2021-04-01 11:39] LABS: Magnesium 1.7 mg/dL (1.9-2.7)
[2021-04-01] MEDS ORDERED: Morphine 2 MG/ML SYRINGE IV ONE (15:22)
[2021-04-01] MEDS: oxyCODONE/Acetamin 5/325 mg TAB PO PRN ×2 (17:54→23:38)
[2021-04-01] MEDS: CMCS:Nebivolol 2.5 mg TAB (NF) PO SCH ×3 (18:17→18:21)
[2021-04-01] MEDS: Senna TAB 8.6 mg TAB PO SCH (20:39)
[2021-04-01] MEDS: Lidocaine Patch REMOVE PATCH PATCH OFF SCH (20:45)
[2021-04-02] MEDS ORDERED: Morphine 10 MG/ML VIAL (1 ml) IV ONE (01:45)
[2021-04-02 04:48] LABS: ABS Eosinophils 0.3 10^3/ul (0-0.6); ABS Lymphocytes 2.7 10^3/ul (1.0-4.8); ABS Monocytes 0.8 10^3/ul (0-0.8); ABS Neutrophils 8.4 10^3/ul (1.5-7.7); Eosinophil % 2.2 %; Hematocrit 36 % (35-47); Lymphocyte % 22.5 %; Mean Corpuscular HGB Conc 33 g/dL (31-36); Mean Corpuscular Hemoglobin 31 pg (27-31); Mean Corpuscular Volume 92 fL (80-97); Mean Platelet Volume 7.5 fL (7.4-10.4); Platelet Count 293 10^3/uL (150-450); Red Blood Count 3.91 10^6 /uL (3.70-4.87); Red Cell Distribution Width 15 % (10-15); White Blood Count 12.2 10^3/uL (3.5-10.8)
[2021-04-02] MEDS: oxyCODONE/Acetamin 5/325 mg TAB PO PRN ×5 (05:12→23:38)
[2021-04-02] MEDS: Aspirin EC 81 mg TAB.EC (enteric coated) PO SCH (08:48)
[2021-04-02] MEDS: Lidocaine PATCH 5% PATCH TRANSDERM SCH (08:50)
[2021-04-02] MEDS: methylPREDNISolone TAB* 4 MG - DAY 1 1300,1800 PO SCH ×2 (12:52→17:06)
[2021-04-02] MEDS: methylPREDNISolone TAB* 8 MG - DAY 1 0800,2100 PO SCH ×2 (12:52→20:21)
[2021-04-02] MEDS ORDERED: Magnesium Hydroxide LIQ 30 ML UDC PO PRN (16:49)
[2021-04-02] MEDS: CMCS:Nebivolol 2.5 mg TAB (NF) PO SCH (17:06)
[2021-04-02] MEDS: Magnesium Hydroxide LIQ 30 ML UDC PO SCH (17:12)
[2021-04-02] MEDS: Senna TAB 8.6 mg TAB PO SCH (20:22)
[2021-04-02] MEDS: Lidocaine Patch REMOVE PATCH PATCH OFF SCH (20:27)
[2021-04-03] MEDS: oxyCODONE/Acetamin 5/325 mg TAB PO PRN ×5 (03:35→22:59)
[2021-04-03] MEDS: methylPREDNISolone TAB* 4 MG - DAY 2 0700,1300,1800 PO SCH ×3 (05:59→17:47)
[2021-04-03] MEDS: Lidocaine PATCH 5% PATCH TRANSDERM SCH (09:27)
[2021-04-03] MEDS: Aspirin EC 81 mg TAB.EC (enteric coated) PO SCH (09:27)
[2021-04-03] MEDS: Magnesium Hydroxide LIQ 30 ML UDC PO SCH (09:30)
[2021-04-03] MEDS ORDERED: Magnesium CITRATE LIQ 300 ML BTL PO ONE (14:10)
[2021-04-03] MEDS: Ondansetron 4 mg VIAL 2 MG/ML 2 ml VIAL IV PRN (14:24)
[2021-04-03] MEDS: CMCS:Nebivolol 2.5 mg TAB (NF) PO SCH (17:48)
[2021-04-03] MEDS ORDERED: methylPREDNISolone TAB* 8 MG - DAY 2 2100 PO SCH (21:00)
[2021-04-03] MEDS: Senna TAB 8.6 mg TAB PO SCH (22:56)
[2021-04-03] MEDS: Lidocaine Patch REMOVE PATCH PATCH OFF SCH (23:01)
[2021-04-04 06:42] LABS: ABS Eosinophils 0.1 10^3/ul (0-0.6); ABS Lymphocytes 1.9 10^3/ul (1.0-4.8); ABS Monocytes 0.5 10^3/ul (0-0.8); ABS Neutrophils 11.8 10^3/ul (1.5-7.7); Eosinophil % 0.6 %; Hematocrit 40 % (35-47); Hemoglobin 13.4 g/dL (12.0-16.0); Lymphocyte % 13.5 %; Mean Corpuscular HGB Conc 34 g/dL (31-36); Mean Corpuscular Hemoglobin 30 pg (27-31); Mean Corpuscular Volume 91 fL (80-97); Mean Platelet Volume 7.5 fL (7.4-10.4); Platelet Count 347 10^3/uL (150-450); Red Blood Count 4.41 10^6 /uL (3.70-4.87); Red Cell Distribution Width 14 % (10-15); White Blood Count 14.4 10^3/uL (3.5-10.8)
[2021-04-04 06:59] LABS: Calcium 9.2 mg/dL (8.6-10.3); EGFR African American 102.2 (>60); EGFR Non-African American 84.5 (>60); Magnesium 2.3 mg/dL (1.9-2.7); Potassium 4.2 mmol/L (3.5-5.0)
[2021-04-04] MEDS ORDERED: methylPREDNISolone TAB* 4 MG - DAY 3 0700,1300,1800,2100 PO SCH (07:00)
[2021-04-04 08:07] VITALS: BP 151/77
[2021-04-04] MEDS: Aspirin EC 81 mg TAB.EC (enteric coated) PO SCH (09:32)
[2021-04-04] MEDS: oxyCODONE/Acetamin 5/325 mg TAB PO PRN (09:33)
[2021-04-04] MEDS: Lidocaine PATCH 5% PATCH TRANSDERM SCH (09:34)
[2021-04-04] MEDS: Magnesium Hydroxide LIQ 30 ML UDC PO SCH (09:52)
[2021-04-05] MEDS ORDERED: methylPREDNISolone TAB* 4 MG - DAY 4 0700,1300,2100 PO SCH (07:00)
[2021-04-06] MEDS ORDERED: methylPREDNISolone TAB* 4 MG - DAY 5 0700,2100 PO SCH (07:00)
[2021-04-07] MEDS ORDERED: methylPREDNISolone TAB* 4 MG - DAY 6 0700 PO SCH (07:00)
== END 2021-04-04 11:15 | disposition home or self-care (01) | DRG 254 ==
LOC: ED 02:23 → SSU 02:23 → MEDTELE 03-31 15:10
PROVIDERS: ADMIT Hospitalist; ATTEND Internal Medicine

== ENCOUNTER 2021-04-24 20:55 | Inpatient (IN) ==
[2021-04-24] MEDS ORDERED: NS 0.9% 1000 ml BAG 1,000 ML IV ONE (21:34)
[2021-04-24] MEDS ORDERED: Ondansetron 4 mg VIAL 2 MG/ML 2 ml VIAL IV PRN (22:30)
[2021-04-24 22:45] LABS: ABS Basophils 0.1 10^3/ul (0-0.2); ABS Eosinophils 0.1 10^3/ul (0-0.6); ABS Lymphocytes 2.4 10^3/ul (1.0-4.8); ABS Monocytes 0.6 10^3/ul (0-0.8); ABS Neutrophils 3.9 10^3/ul (1.5-7.7); Hematocrit 37 % (35-47); Hemoglobin 12.8 g/dL (12.0-16.0); Lymphocyte % 33.3 %; Mean Corpuscular HGB Conc 35 g/dL (31-36); Mean Corpuscular Hemoglobin 31 pg (27-31); Mean Corpuscular Volume 91 fL (80-97); Mean Platelet Volume 7.4 fL (7.4-10.4); Platelet Count 307 10^3/uL (150-450); Red Blood Count 4.06 10^6 /uL (3.70-4.87); Red Cell Distribution Width 14 % (10-15); White Blood Count 7.1 10^3/uL (3.5-10.8)
[2021-04-24 23:00] LABS: C Reactive Protein 3.29 mg/L (<8.01); EGFR African American 100.7 (>60); EGFR Non-African American 83.2 (>60); Potassium 3.6 mmol/L (3.5-5.0)
[2021-04-25 00:15] LABS: Erythrocyte Sed Rate 24 mm/Hr (0-19)
[2021-04-25] MEDS ORDERED: cefTRIAXone 1 gm/50 mL NS BAG 1 GM/50 ML BAG IVPB SCH (01:00)
[2021-04-25 05:27] LABS: ABS Eosinophils 0.1 10^3/ul (0-0.6); ABS Lymphocytes 1.9 10^3/ul (1.0-4.8); ABS Monocytes 0.6 10^3/ul (0-0.8); ABS Neutrophils 2.8 10^3/ul (1.5-7.7); Eosinophil % 2.7 %; Hematocrit 35 % (35-47); Hemoglobin 12.1 g/dL (12.0-16.0); Lymphocyte % 34.6 %; Mean Corpuscular HGB Conc 34 g/dL (31-36); Mean Corpuscular Hemoglobin 31 pg (27-31); Mean Corpuscular Volume 92 fL (80-97); Mean Platelet Volume 7.5 fL (7.4-10.4); Nucleated Red Blood Cells % 0.1; Platelet Count 272 10^3/uL (150-450); Red Blood Count 3.86 10^6 /uL (3.70-4.87); Red Cell Distribution Width 14 % (10-15); White Blood Count 5.4 10^3/uL (3.5-10.8)
[2021-04-25 05:32] LABS: INR 0.99 (0.86-1.15)
[2021-04-25 05:43] LABS: Albumin 3.5 g/dL (3.2-5.2); Albumin/Globulin Ratio 1.3 (1-3); Calcium 8.3 mg/dL (8.6-10.3); EGFR African American 116.7 (>60); EGFR Non-African American 96.4 (>60); Globulin 2.6 g/dL (2-4); Potassium 3.8 mmol/L (3.5-5.0); Total Bilirubin 0.3 mg/dL (0.2-1.0); Total Protein 6.1 g/dL (6.4-8.9)
[2021-04-25] MEDS ORDERED: NS 0.9% 1000 ml BAG 1,000 ML IV SCH (06:00)
[2021-04-25] MEDS: CMC:Nebivolol 2.5 mg TAB (NF) PO SCH (08:20)
[2021-04-25] MEDS ORDERED: Midazolam 2 mg/2 ml VIAL 1 mg/ml 2 ml VIAL (2 mg) ONE (09:37)
[2021-04-25] MEDS ORDERED: Phenylephrine IV 10 MG/ML 1 ml VIAL ONE (09:37)
[2021-04-25] MEDS ORDERED: Lidocaine 2% PF 5 ML VIAL ONE (09:37)
[2021-04-25] MEDS ORDERED: Rocuronium 50 mg VIAL 10 mg/ml 5 ml VIAL (50 mg) ONE (09:37)
[2021-04-25] MEDS ORDERED: fentaNYL 100 mcg/2 ml 50 MCG/ML VIAL ONE ×3 (09:37→13:17)
[2021-04-25] MEDS ORDERED: Ondansetron 4 mg VIAL 2 MG/ML 2 ml VIAL ONE (09:37)
[2021-04-25] MEDS ORDERED: Glycopyrrolate IV 0.2 MG/ML 1 ML VIAL ONE (09:37)
[2021-04-25] MEDS ORDERED: Propofol 10 MG/ML 20 ML BTL ONE ×2 (09:37→11:05)
[2021-04-25] MEDS ORDERED: Ketamine HCL 50 mg/ml 10 ml VIAL (500 MG) ONE (09:52)
[2021-04-25] MEDS ORDERED: ceFAZolin VIAL VIAL ONE (10:03)
[2021-04-25] MEDS ORDERED: Vancomycin 1,000 MG VIAL ONE (10:03)
[2021-04-25] MEDS ORDERED: Bupivacaine 0.25% EPI 200,000 30 ML SDV ONE (10:07)
[2021-04-25] MEDS ORDERED: Buffered Lidocaine 1% SYRIN 1 ml INTRADERM ONE (10:15)
[2021-04-25] MEDS ORDERED: ceFAZolin 2 GM in NS PREMIX 2 GM/100 ML BAG IVPB ONE (11:07)
[2021-04-25] MEDS ORDERED: oxyCODONE/Acetamin 5/325 mg TAB PO PRN (11:13)
[2021-04-25] MEDS ORDERED: Prochlorperazine 5 mg/ml 2 ml VIAL (10 mg) IV PRN (11:13)
[2021-04-25] MEDS ORDERED: HYDROcodone/ACETAMIN 5/325 mg TAB PO PRN ×3 (11:13→13:19)
[2021-04-25] MEDS ORDERED: Naloxone 0.4 mg VIAL 0.4 mg/ml 1 ml VIAL IV PRN (11:13)
[2021-04-25] MEDS ORDERED: EPHEDrine (Pressors) 50 MG/ML VIAL ONE (11:50)
[2021-04-25] MEDS: fentaNYL 100 mcg/2 ml 50 MCG/ML VIAL IV PRN ×3 (13:15→13:25)
[2021-04-25] MEDS ORDERED: Magnesium Hydroxide LIQ 30 ML UDC PO PRN (13:19)
[2021-04-25] MEDS ORDERED: Morphine 4 MG/ML VIAL (1 ml) ONE (14:13)
[2021-04-25] MEDS: Morphine 4 MG/ML VIAL (1 ml) IV PRN ×2 (14:15→14:36)
[2021-04-25] MEDS: Cholecalciferol (VIT D3) 1,000 unit TAB PO SCH (17:39)
[2021-04-25] MEDS: Cefepime 2 GM in Dextrose 2 GM/50 ML BAG IV SCH (17:39)
[2021-04-25] MEDS: Polyethylene Glycol 3350 17 GM PACKET PO SCH (19:27)
[2021-04-26] MEDS: Cefepime 2 GM in Dextrose 2 GM/50 ML BAG IV SCH ×2 (05:05→17:40)
[2021-04-26] MEDS ORDERED: Polyethylene Glycol 3350 17 GM PACKET PO PRN (08:43)
[2021-04-26] MEDS: Magnesium Hydroxide LIQ 30 ML UDC PO SCH ×2 (09:22→17:39)
[2021-04-26] MEDS: CMC:Nebivolol 2.5 mg TAB (NF) PO SCH (09:23)
[2021-04-26] MEDS: Polyethylene Glycol 3350 17 GM PACKET PO SCH (10:19)
[2021-04-26] MEDS: oxyCODONE/Acetamin 5/325 mg TAB PO PRN ×2 (16:01→20:58)
[2021-04-26] MEDS: Cholecalciferol (VIT D3) 1,000 unit TAB PO SCH (17:39)
[2021-04-27] MEDS: oxyCODONE/Acetamin 5/325 mg TAB PO PRN ×5 (00:53→21:55)
[2021-04-27 05:40] LABS: ABS Eosinophils 0.2 10^3/ul (0-0.6); ABS Lymphocytes 2.2 10^3/ul (1.0-4.8); ABS Monocytes 0.5 10^3/ul (0-0.8); ABS Neutrophils 1.5 10^3/ul (1.5-7.7); Eosinophil % 3.8 %; Hematocrit 36 % (35-47); Hemoglobin 12.4 g/dL (12.0-16.0); Lymphocyte % 50.8 %; Mean Corpuscular HGB Conc 34 g/dL (31-36); Mean Corpuscular Hemoglobin 31 pg (27-31); Mean Corpuscular Volume 91 fL (80-97); Mean Platelet Volume 7.6 fL (7.4-10.4); Nucleated Red Blood Cells % 0.1; Platelet Count 252 10^3/uL (150-450); Red Blood Count 3.96 10^6 /uL (3.70-4.87); Red Cell Distribution Width 14 % (10-15); White Blood Count 4.3 10^3/uL (3.5-10.8)
[2021-04-27] MEDS: Cefepime 2 GM in Dextrose 2 GM/50 ML BAG IV SCH ×2 (05:56→16:54)
[2021-04-27 05:58] LABS: Calcium 8.2 mg/dL (8.6-10.3); EGFR African American 107.2 (>60); EGFR Non-African American 88.6 (>60); Potassium 3.8 mmol/L (3.5-5.0)
[2021-04-27] MEDS: Magnesium Hydroxide LIQ 30 ML UDC PO SCH ×2 (05:59→16:40)
[2021-04-27] MEDS: Polyethylene Glycol 3350 17 GM PACKET PO SCH (07:21)
[2021-04-27] MEDS: CMC:Nebivolol 2.5 mg TAB (NF) PO SCH (07:37)
[2021-04-27] MEDS: Cholecalciferol (VIT D3) 1,000 unit TAB PO SCH (16:41)
[2021-04-28] MEDS: oxyCODONE/Acetamin 5/325 mg TAB PO PRN ×2 (02:33→08:24)
[2021-04-28] MEDS: Cefepime 2 GM in Dextrose 2 GM/50 ML BAG IV SCH (05:17)
[2021-04-28] MEDS: Magnesium Hydroxide LIQ 30 ML UDC PO SCH (06:11)
[2021-04-28] MEDS: CMC:Nebivolol 2.5 mg TAB (NF) PO SCH (08:28)
[2021-04-28] MEDS: Polyethylene Glycol 3350 17 GM PACKET PO SCH (08:33)
[2021-04-28 11:46] VITALS: BP 128/79
== END 2021-04-28 12:45 | disposition home or self-care (01) | DRG 791 ==
LOC: ED 20:55 → SSU 23:58
PROVIDERS: ADMIT Pediatrics; ATTEND Hospitalist